=== PATIENT | female | born 1955 | race Caucasian/White ===

== ENCOUNTER 2020-04-28 06:20 | Outpatient (REF) | payer BC, SELFPAY ==
[2020-04-28 11:38] LABS: Basophils Percent Auto 0.6 % (0-2); MANUAL DIFF FLAG SCAN; Red Cell Distribution Width 13.6 % (11.0-16.0); SCAN SMEAR FLAG 1; White Blood Count 5.1 X10*3/uL (4.8-10.8)
[2020-04-28 11:40] LABS: Eosinophils Absolute Auto 0.3 X10*3/uL (0.0-0.4); Eosinophils Percent Auto 4.9 % (0-4); Hematocrit 44.9 % (37-47); Hemoglobin 14.2 g/dl (12.0-16.0); Imm Gran Abs Auto 0.02 X10*3/uL (0.00-0.03); Imm Gran Pct Auto 0.4 % (0.0-0.4); Lymphocytes Absolute Auto 1.6 X10*3/uL (1.2-4.9); Lymphocytes Percent Auto 31.6 % (20-40); Mean Corpuscular HGB Conc 31.6 g/dl (31.0-35.0); Mean Corpuscular Volume 94.9 fL (80-98); Mean Platelet Volume 14.5 fL (9.4-12.3); Monocytes Absolute Auto 0.5 X10*3/uL (0.1-1.2); Monocytes Percent Auto 10.5 % (2-11); Neutrophils Absolute Auto 2.7 X10*3/uL (2.0-8.3); Platelet Count 117 X10*3/uL (160-400); Red Blood Count 4.73 X10*6/uL (4.20-5.50)
[2020-04-28 11:48] LABS: PLT ABN DIST 1
[2020-04-28 11:58] LABS: Anion Gap 15 (12-20); Blood Urea Nitrogen 14 mg/dL (9-16); Calcium 9.2 mg/dL (8.4-10.2); Carbon Dioxide 25 mmol/L (22-29); Chloride 102 mmol/L (96-108); Cholesterol 191 mg/dL; Estimated Glomerular Filt Rate > 60; Glucose Fasting 127 mg/dL (60-99); HDL Cholesterol 47 mg/dL; LDL Cholesterol Calculated 103 mg/dl; Potassium 3.9 mmol/l (3.3-5.1); Sodium 138 mmol/L (135-145); Triglycerides 209 mg/dL
[2020-04-28 12:23] LABS: TSH reflex Free T4 3.96 mIU/mL (0.32-4.0)
== END 2020-04-28 06:21 | disposition home or self-care (01) ==
LOC: HO.HMGCLDS 06:20
PROVIDERS: PCP Internal Medicine; Visit Provider Internal Medicine
DX: E03.9 Hypothyroidism, unspecified (principal); I10 Essential (primary) hypertension; Z00.01 Encounter for general adult medical examination with abnormal findings
CPT/HCPCS: 36415; 80048; 80061; 84443; 85025

== ENCOUNTER 2020-05-22 07:31 | Day surgery (SDC) | payer BC, SELFPAY ==
[2020-05-15 13:18] VITALS: BMI 39.2
[2020-05-22 07:45] VITALS: BP 137/66; PULSE 88; RESP 18; TEMP 36.7; O2SAT 95
--- NOTE | 2020-05-22 08:20 | HO.ANESPROP2 ---
[facility] Past Medical History Medical History (Updated 05/15/20 @ 13:25 by Ruthann Boland) Arthritis Cancer Hx of radiation therapy Hypertension, essential Hypothyroidism Lab test negative for COVID-19 virus Sleep apnea TIA (transient ischemic attack) Family History Family History Father No problems noted. Mother HTN (hypertension) Surgical History Surgical History (Updated 05/15/20 @ 13:21 by Ruthann Boland) H/O colonoscopy History of extraction of renal calculus Hx of breast lump removal Hx of section No pertinent past surgical history Social History Social History Smoking Status: Never smoker Use of substances other than those prescribed or required for medical reasons: No Advance Directives Information Provided: No Recently lost weight without trying: No Meds Allergies Allergy/AdvReac Type Severity Reaction Status Date / Time No Known Allergies Allergy Verified 05/15/20 13:23 Home Medications Medication Instructions Recorded Confirmed Type amlodipine 10 mg tablet 10 mg PO DAILY 04/26/20 05/22/20 History aspirin 81 mg tablet,delayed 81 mg PO DAILY 04/26/20 05/15/20 History release levothyroxine 50 mcg tablet 50 mcg PO QAM 04/26/20 05/22/20 History olmesartan 40 mg tablet 40 mg PO DAILY 04/26/20 05/15/20 History cholecalciferol (vitamin D3) 25 mcg PO DAILY 05/15/20 05/15/20 History [Vitamin D3] Exam Exam Date and Time: May 22, 2020 0820 Height,Weight and Vital Signs: Height 5 ft Weight 91.172 kg Last Vital Signs Temp 98.0 F 05/22/20 07:45 Pulse 88 05/22/20 07:45 Resp 18 05/22/20 07:45 BP 137/66 05/22/20 07:45 Pulse Ox 95 05/22/20 07:45 Airway Mallampati Class: III TM Dist: >3cm Neck ROM: Full Loose/Missing/Broken Teeth: No Heart: rrr Lungs: nl Other: ao Assessment and Plan Assessment Anesthesia Assessment: Anesthesia Plan Discussed, PAT Visit and Chart Reviewed Final Anesthetic Review NPO: Yes ASA Class: III Final Preanesthetic Review: No Changes in Pt Med Stat, Meds/Allgs Chart Reviewed, Consent Obtained/Reviewed and Anes Risks/Benef Reviewed Patient Risk: Intermediate Procedure Risk: Low Anesthetic Plan Anesthetic Plan: MAC: Disposition: Standard PACU
--- NOTE | 2020-05-22 08:34 | P.HPSUR_ITS ---
Pre-Procedural Eval Section B Chief Complaint: SCREENING Relevant Family History (Specify if Yes): No Relevant Social History: None Present Medications: see Short Stay Collaborative assessment Medical History: Significant History (HTN,hypothyroidism) History of Previous Operations: No relevant previous surgery Allergies: Allergies Allergy/AdvReac Type Severity Reaction Status Date / Time No Known Allergies Allergy Verified 05/15/20 13:23 Review of Systems Sugical H&P ROS: Negative: Constitution, Cardiovascular, Respiratory, Neurological, Psychiatric, Hem-Onc, Allergic/Immunologic, Gastrointestinal, Genitourinary, Musculoskeletal, Integumentary, Endocrine and Eyes/Ears/Nose/Thr oat Exam Surgical H&P Exam: Normal: HEENT, Normal: Heart, Normal: Lungs, Normal: Extremities, Normal: Abdomen, Normal: Skin and Normal: Neurological Plan Diagnosis/Plan: Unchanged Patient has been examined and remains a candidate for the planned procedure
--- NOTE | 2020-05-22 09:00 | P.OP_ITS ---
Operative Note Operative Note Date of Service: 05/22/20 Narrative: Operative Information Procedure Description: Colonoscopy COLONOSCOPY Instrument: Olympus variable stiffness pediatric scope 190L Colonoscopy Monitoring: Vital signs and clinical assessment, continuous EKG monitoring, Pulse oximetry, Carbon Dioxide monitoring and blood pressure monitoring were done throughout the procedure. Colon withdrawal time was 8 minutes. Procedure: The patient was placed in the left lateral decubitis position and pre-procedure medications were administered. After a digital rectal examination of the ano-rectum, the video colonoscope was inserted into the rectum and advanced through the colon to the cecum/TI. The colonoscope was slowly withdrawn in a retrograde panoramic fashion and the colon mucosa was carefully examined including a retroflexed view of the rectum. Findings and interventions are described below. Procedure Difficulty: Findings: Terminal Ileum-normal Cecum:normal Ascending Colon: 6-7 mm sessile polyp removed with biopsy forceps Transverse Colon - x 2 sessile polyps 8-10 mm removed with cold snare Descending Colon:normal Sigmoid Colon: normal Rectum: Retroflexion with small internal hemorrhoids, grade I Anorectum - normal Colon preparation: [place] Bowel Preparation Scale Right colon; 3 Transverse colon: 3 Left colon; 3 (0 = Unprepared colon segment with mucosa not seen due to solid stool that cannot be cleared. 1 = Portion of mucosa of the colon segment seen, but other areas of the colon segment not well seen due to staining, residual stool and/or opaque liquid. 2 = Minor amount of residual staining, small fragments of stool and/or opaque liquid, but mucosa of colon segment seen well. 3 = Entire mucosa of colon segment seen well with no residual staining, small fragments of stool or opaque liquid) Impression and Post Procedure Diagnosis: internal hemorrhoids polyps Plan: High fiber diet leaflet Avoid straining at stool, epsom salts and sitz bath, anusol supps or cream Repeat Colonoscopy in 5 years if adenomatous polyps, 10 yrs if hyperplastic or earlier if clinically indicated Above findings were reviewed with the patient and relevant handouts were provided if indicated.
--- NOTE | 2020-05-22 09:00 | PM.OP ---
Brief Operative Note Date of Service: 05/22/20 Pre-op diagnosis: colon screen Post-op diagnosis: same Procedure: see op note Surgeon: Susanne Salmeron MD Anesthesia: MAC Estimated blood loss (mL): 0 Condition: stable Disposition: PACU
[2020-05-22 09:07] VITALS: BP 100/51; PULSE 66; RESP 16; TEMP 36.4; O2SAT 92
[2020-05-22 09:21] VITALS: BP 123/65; PULSE 68; RESP 15; TEMP 36.4; O2SAT 94
== END 2020-05-22 10:08 | disposition home or self-care (01) ==
PROVIDERS: PCP Internal Medicine; Visit Provider Internal Medicine Gastroenterology
PROC: 0DJD8ZZ Inspection of Lower Intestinal Tract, Via Natural or Artificial Opening Endoscopic (ICD-10-PCS; CPT 45378; principal; 2020-05-22 08:30)
DX: Z12.11 Encounter for screening for malignant neoplasm of colon (principal); D12.2 Benign neoplasm of ascending colon; D12.3 Benign neoplasm of transverse colon; K64.0 First degree hemorrhoids; G47.33 Obstructive sleep apnea (adult) (pediatric); I10 Essential (primary) hypertension; E03.9 Hypothyroidism, unspecified; Z85.3 Personal history of malignant neoplasm of breast; Z92.3 Personal history of irradiation; Z86.73 Personal history of transient ischemic attack (TIA), and cerebral infarction without residual deficits; Z79.82 Long term (current) use of aspirin; Z79.899 Other long term (current) drug therapy
CPT/HCPCS: 45385; 45380; 88305

== ENCOUNTER → 2020-06-05 09:25 | Outpatient (BNVA) | payer BC, SELFPAY | PROVIDERS: Visit Provider Physician Assistant | DX: Z76.89 Persons encountering health services in other specified circumstances (principal) ==

== ENCOUNTER 2020-08-25 11:15 | Outpatient (REF) | payer BC, SELFPAY ==
[2020-08-25 13:50] LABS: Hematocrit 45.6 % (37-47); Hemoglobin 14.6 g/dl (12.0-16.0)
[2020-08-25 14:21] LABS: Alanine Aminotransferase 31 U/L (0-31); Albumin Level 4.5 g/dL (3.5-5.0); Alkaline Phosphatase 84 U/L (39-117); Anion Gap 17 (12-20); Aspartate Amino Transferase 38 U/L (5-31); Bilirubin Direct 0.4 mg/dL (0.0-0.5); Bilirubin Total 1.2 mg/dL (0.0-1.0); Blood Urea Nitrogen 15 mg/dL (9-16); Calcium 9.6 mg/dL (8.4-10.2); Carbon Dioxide 26 mmol/L (22-29); Chloride 103 mmol/L (96-108); Estimated Glomerular Filt Rate > 60; Glucose Random 114 mg/dL (60-115); Potassium 4.6 mmol/L (3.3-5.1); Sodium 141 mmol/L (135-145); Total Protein 8.2 g/dL (6.5-8.0)
[2020-08-25 14:43] LABS: TSH reflex Free T4 2.67 uIU/mL (0.32-4.0)
== END 2020-08-25 11:16 | disposition home or self-care (01) ==
LOC: HO.HMGCLDS 11:15
PROVIDERS: PCP Internal Medicine; Visit Provider Internal Medicine
DX: E03.8 Other specified hypothyroidism (principal); I10 Essential (primary) hypertension; E66.9 Obesity, unspecified
CPT/HCPCS: 36415; 80048; 80076; 84443; 85014; 85018

== ENCOUNTER 2021-01-16 09:59 | Outpatient (REF) | payer BC, SELFPAY ==
[2021-01-16 12:09] LABS: TSH reflex Free T4 2.06 uIU/mL (0.32-4.0)
[2021-01-16 12:14] LABS: Alanine Aminotransferase 28 U/L (0-31); Albumin Level 4.3 g/dL (3.5-5.0); Alkaline Phosphatase 94 U/L (39-117); Anion Gap 18 (12-20); Aspartate Amino Transferase 34 U/L (5-31); Blood Urea Nitrogen 16 mg/dL (9-16); Calcium 9.7 mg/dL (8.4-10.2); Carbon Dioxide 23 mmol/L (22-29); Chloride 107 mmol/L (96-108); Estimated Glomerular Filt Rate > 60; Glucose Random 142 mg/dL (60-115); Potassium 4.6 mmol/L (3.3-5.1); Sodium 143 mmol/L (135-145); Total Protein 7.9 g/dL (6.5-8.0)
== END 2021-01-16 10:00 | disposition home or self-care (01) ==
LOC: HO.HMGCLDS 09:59
PROVIDERS: PCP Internal Medicine; Visit Provider Internal Medicine
DX: E03.8 Other specified hypothyroidism (principal); E66.9 Obesity, unspecified; I10 Essential (primary) hypertension
CPT/HCPCS: 36415; 80053; 84443

== ENCOUNTER 2021-02-26 11:23 | Emergency (ER) | payer BC, SELFPAY ==
--- NOTE | ~2021-02-26 | CT_ITS ---
EXAMINATION: CT ABDOMEN AND PELVIS WITHOUT CONTRAST CLINICAL INFORMATION: Right flank pain with history of kidney stones COMPARISON: 07/02/2008, CT abdomen pelvis TECHNIQUE: Multidetector volumetric imaging was performed from the superior aspect of the liver through the pubic symphysis. Sagittal and coronal reformatted images were obtained on the technologist's workstation. This CT examination was performed using dose optimization techniques as appropriate, variously including the following: *Automated exposure control *Adjustment of mA and/or kV according to patient size (this includes techniques or standardized protocols for targeted exams where dose is matched to indication/reason for exam; i.e. extremities or head) *Use of iterative reconstruction technique DLP: 831 mGy-cm FINDINGS: LUNG BASES: The visualized lung bases are unremarkable. LIVER, GALLBLADDER, AND BILIARY TREE: Again seen is hepatic steatosis. There is mild hepatic enlargement. No focal mass or bile duct dilatation is seen. The gallbladder contains densely layering bile but no radiopaque gallstones are seen. The gallbladder is otherwise unremarkable with no evidence of gallbladder wall thickening, or obvious pericholecystic inflammatory changes. PANCREAS: Unremarkable. SPLEEN: Unremarkable. ADRENAL GLANDS: Unremarkable. KIDNEYS AND URETERS: The kidneys are normal in size, shape, and attenuation of a right lower pole renal calculus is seen measuring about 7 mm in size. Hounsfield unit attenuation is 831 and a stone is 12.8 cm from the posterior axillary line. At the time of the prior study, much more extensive stone disease was present.. No hydronephrosis, hydroureter, or calculi seen. No perinephric stranding. BLADDER: Unremarkable. GASTROINTESTINAL TRACT: A hiatal hernia is present. The small and large bowel are unremarkable. The appendix is unremarkable. ABDOMINAL WALL: There is diastases of the rectus muscles in the pelvis with an anterior lobular hernia containing only fat. Similar finding was present in 2008. LYMPH NODES: No retroperitoneal lymphadenopathy. VASCULAR: Unremarkable. PELVIC VISCERA: An anteverted retroflexed uterus is present. An abnormal adnexal mass or free intraperitoneal fluid is not seen. OSSEOUS STRUCTURES: Degenerative changes present throughout the spine most marked at L4-L5 and L5-S1. No bony destructive lesions. CT/CT abdomen pelvis wo con IMPRESSION: 1. A cause for the patient's acute right flank pain has not been found. A right lower pole nonobstructing calculus is seen. 2. Incidental note made of hepatic steatosis, layering dense bilateral, small hiatal hernia, ventral hernia containing only fat and degenerative changes in the spine.
[2021-02-26 13:39] VITALS: BP 156/74; PULSE 71; RESP 16; TEMP 36.6; O2SAT 97; BMI 39.0
[2021-02-26 14:05] LABS: Basophils Percent Auto 0.4 % (0-2); Hematocrit 45.7 % (37-47); Hemoglobin 14.8 g/dl (12.0-16.0); Imm Gran Abs Auto 0.04 X10*3/uL (0.00-0.03); Imm Gran Pct Auto 0.4 % (0.0-0.4); MANUAL DIFF FLAG SCAN; Mean Corpuscular HGB Conc 32.4 g/dl (31.0-35.0); Mean Corpuscular Hemoglobin 29.8 pg (27.0-33.0); Mean Corpuscular Volume 92.1 fL (80-98); Red Blood Count 4.96 X10*6/uL (4.20-5.50); Red Cell Distribution Width 14.3 % (11.0-16.0); SCAN SMEAR FLAG 1
[2021-02-26 14:07] LABS: Eosinophils Absolute Auto 0.1 X10*3/uL (0.0-0.4); Eosinophils Percent Auto 0.7 % (0-4); Lymphocytes Absolute Auto 1.5 X10*3/uL (1.2-4.9); Lymphocytes Percent Auto 16.5 % (20-40); Mean Platelet Volume 13.5 fL (9.4-12.3); Monocytes Absolute Auto 0.6 X10*3/uL (0.1-1.2); Neutrophils Absolute Auto 7.1 X10*3/uL (2.0-8.3); Platelet Count 137 X10*3/uL (160-400); White Blood Count 9.3 X10*3/uL (4.8-10.8)
[2021-02-26 14:08] LABS: PLT ABN DIST 1
[2021-02-26 14:29] LABS: Anion Gap 14 (12-20); Blood Urea Nitrogen 15 mg/dL (9-16); Calcium 9.5 mg/dL (8.4-10.2); Carbon Dioxide 23 mmol/L (22-29); Chloride 109 mmol/L (96-108); Creatinine Clr Calc Pharmacy 70.4; Estimated Glomerular Filt Rate > 60; Glucose Random 123 mg/dL (60-115); Potassium 4.2 mmol/L (3.3-5.1); Sodium 142 mmol/L (135-145)
[2021-02-26 14:37] LABS: SLIDE REVIEW VERIFIED
--- NOTE | 2021-02-26 18:34 | ED.FEMALEGU ---
HPI - Female Genitourinary General Chief complaint: Urogenital-Female Stated complaint: kidney stones ? Time Seen by Provider: 02/26/21 18:34 Source: patient Mode of arrival: ambulatory Limitations: no limitations History of Present Illness HPI Narrative: Patient has a kidney stone been complaining of pain in the right flank area for last 1 week no dysuria no frequency no gross hematuria no fever or chills no nausea/vomiting or diarrhea no history of trauma no abdominal pain pain is localized to right flank for last 1 week no radiation of pain to the front patient had stone 1 time had lithotripsy that time Related Data Home Medications Medication Instructions Recorded Confirmed aspirin 81 mg tablet,delayed 81 mg PO DAILY 04/26/20 01/16/21 release (Adult Aspirin Regimen) cholecalciferol (vitamin D3) 25 25 mcg PO DAILY 05/15/20 01/16/21 mcg (1,000 unit) tablet (Vitamin D3) Previous Rx's Medication Instructions Recorded amlodipine 10 mg tablet 10 mg PO DAILY #90 tab 12/13/20 olmesartan 40 mg tablet 40 mg PO DAILY #30 tab 12/13/20 levothyroxine 50 mcg tablet 50 mcg PO QAM #90 tab 01/26/21 potassium chloride 20 mEq 20 meq PO DAILY #90 tab 01/26/21 tablet,extended release cyclobenzaprine 10 mg tablet 10 mg PO Q8H #20 tab 02/26/21 tramadol 50 mg tablet 50 mg PO Q6H PRN #20 tab 02/26/21 Allergies Allergy/AdvReac Type Severity Reaction Status Date / Time No Known Allergies Allergy Verified 01/16/21 09:34 Review of Systems Review of Systems: Yes all other systems are reviewed and are negative [facility] Past Medical History Medical History Arthritis Cancer Hx of radiation therapy Hypertension, essential Hypothyroidism Lab test negative for COVID-19 virus Sleep apnea TIA (transient ischemic attack) Surgical History H/O colonoscopy History of extraction of renal calculus Hx of breast lump removal Hx of section No pertinent past surgical history Family History Family History Father No problems noted. Mother HTN (hypertension) Other Substance use disorder Social History Social History Household Members: Spouse Household Members Other:: Custody of 3 grandchildren, she and her are [id number], 15 and 17 Housing: House Alcohol intake: never Patient Tobacco Use Status: Never used Tobacco Second Hand Smoke Exposure: No Advance Directives: No Advance Directives Information Provided: No Current occupational status: unemployed Physical Exam Vital Signs: Vital Signs: Last Vital Signs Temp 97.9 F 02/26/21 13:39 Pulse 78 02/26/21 20:28 Resp 18 02/26/21 20:28 BP 156/74 H 02/26/21 13:39 Pulse Ox 97 02/26/21 13:39 Body Mass Index 39.0 Appearance: Alert. Oriented X3. Mild distress Eyes: No pallor or icterus ENT: Pharynx normal. Oral Mucosa moist Neck: Normal inspection. Neck supple. CVS: Normal heart rate and rhythm. Pulses normal. Respiratory: No respiratory distress. Equal air entry bilateral, no wheezing/rales/rhonchi Abdomen: Soft and nontender. Bowel sounds are present, no mass palpable, moderate right CVA tenderness Skin: Skin warm and dry. Normal skin color. Normal skin turgor. Extremities: No lower extremity edema. No calf tenderness Neuro: Oriented X 3. MDM - Female Genitourinary MDM Narrative Medical decision making narrative: Patient with right renal colic without any stone urine shows UTI received IV Rocephin, no signs of pyelonephritis/ perinephric stranding in CT scan. Will discharge patient home on Cipro Differential Diagnosis Differential diagnosis: Likely urinary tract infection Medical Records Attestation: I reviewed the patient's medical records. Lab Data Attestation: I reviewed the patient's lab results. Result diagrams: 02/26/21 13:58 02/26/21 13:58 Labs: Lab Results 02/26/21 02/26/21 02/26/21 Range/Units 13:58 13:58 19:25 WBC 9.3 (4.8-10.8) X10*3/uL RBC 4.96 (4.20-5.50) X10*6/uL Hgb 14.8 (12.0-16.0) g/dl Hct 45.7 (37-47) % MCV 92.1 (80-98) fL MCH 29.8 (27.0-33.0) pg MCHC 32.4 (31.0-35.0) g/dl RDW 14.3 (11.0-16.0) % Plt Count 137 L (160-400) X10*3/uL MPV 13.5 H (9.4-12.3) fL Immature Gran % (Auto) 0.4 (0.0-0.4) % Neut % (Auto) 76.0 H (45-73) % Lymph % (Auto) 16.5 L (20-40) % [place] % (Auto) 6.0 (2-11) % Eos % (Auto) 0.7 (0-4) % Baso % (Auto) 0.4 (0-2) % Lymph # (Auto) 1.5 (1.2-4.9) X10*3/uL [place] # (Auto) 0.6 (0.1-1.2) X10*3/uL Eos # (Auto) 0.1 (0.0-0.4) X10*3/uL Baso # (Auto) 0.0 (0.0-0.2) X10*3/uL Abs Immat Gran (auto) 0.04 H (0.00-0.03) X10*3/uL Absolute Neuts (auto) 7.1 (2.0-8.3) X10*3/uL Absolute Nucleated RBC 0.000 (0.0-0.012) X10*3/uL Nucleated RBC % (auto) 0.0 (0.0-0.2) /100WBC Smear Tech's Comments VERIFIED Sodium 142 (135-145) mmol/L Potassium 4.2 (3.3-5.1) mmol/L Chloride 109 H (96-108) mmol/L Carbon Dioxide 23 (22-29) mmol/L Anion Gap 14 (12-20) BUN 15 (9-16) mg/dL Creatinine 0.81 (0.5-1.4) mg/dL Estim Creat Clear Calc 70.4 Estimated GFR > 60 Random Glucose 123 H (60-115) mg/dL Calcium 9.5 (8.4-10.2) mg/dL Urine Color YELLOW Urine Appearance CLEAR Urine pH 6.0 (5.0-8.0) Ur Specific [place] 1.025 (1.005-1.025) Urine Protein NEG (NEG-TRACE) MG/DL Urine Glucose (UA) NEG (NEG) MG/DL Urine Ketones NEG (NEG) MG/DL Urine Blood NEG (NEG) Urine Nitrite NEG (NEG) Ur Leukocyte Esterase NEG (NEG) Discharge Plan Discharge Clinical Impression: Flank pain Patient Disposition: Home, Self-Care Instructions: Flank Pain (ED) Additional Instructions: Etiology of flank pain is not very clear no kidney stones were seen in the CT scan. His possible ED might have passed the kidney stone or your pain is from musculoskeletal Pain medication and muscle relaxant as advised Drink plenty of fluids Follow with PCP if not better Prescriptions: New cyclobenzaprine 10 mg tablet 10 mg PO Q8H Qty: 20 RF: 0 tramadol 50 mg tablet 50 mg PO Q6H PRN (Reason: pain) Qty: 20 RF: 0 No Action olmesartan 40 mg tablet 40 mg PO DAILY Qty: 30 RF: 3 amlodipine 10 mg tablet 10 mg PO DAILY Qty: 90 RF: 0 levothyroxine 50 mcg tablet 50 mcg PO QAM Qty: 90 RF: 0 potassium chloride 20 mEq tablet extended release 20 meq PO DAILY Qty: 90 RF: 0 cholecalciferol (vitamin D3) [Vitamin D3] 25 mcg (1,000 unit) Tablet 25 mcg PO DAILY RF: 0 aspirin [Adult Aspirin Regimen] 81 mg tablet,delayed release (DR/EC) 81 mg PO DAILY RF: 0 Interventions: ED Discharge Assessment Last Done: 02/26/21 21:16 Discharge Date/Time: 02/26/21 21:18
[2021-02-26] MEDS: Morphine Sulfate 4 MG/ML CARTRIDGE IVPUSH (19:18)
[2021-02-26] MEDS: 0.9 % Sodium Chloride 1,000 ML 999 ML IVCONT (19:19)
[2021-02-26] MEDS: ondansetron HCL 4 MG/2 ML VIAL IVPUSH (19:19)
--- NOTE | 2021-02-26 19:32 | PC.NURSE ---
pt resting in stretcher c/o right sided abd pain. pt denies nausea/vomiting at this time but rating pain 8/10. pt returning from CT in stretcher. IV placed to RAC, labs drawn to lab. pt medicated as per emar for pain. NS up and running w/o site intact.
[2021-02-26 19:34] LABS: Glucose Urine UA NEG (NEG); Leukocyte Esterase Urine NEG (NEG); Nitrite Urine NEG (NEG); Specific Gravity - Urine 1.025 (1.005-1.025); Urine Blood NEG (NEG); Urine Ketones NEG (NEG); Urine Protein NEG (NEG-TRACE)
--- NOTE | 2021-02-26 19:34 | PC.NURSE ---
pt up to restroom for urine sample.
[2021-02-26 19:36] LABS: Appearance Urine CLEAR; Color Urine YELLOW
[2021-02-26 20:28] VITALS: PULSE 78; RESP 18
[2021-02-26] MEDS: Cyclobenzaprine HCl 10 MG TABLET PO (20:42)
[2021-02-26] MEDS: Ketorolac Tromethamine 15 MG/ML VIAL IVPUSH (20:42)
== END 2021-02-26 21:18 | disposition home or self-care (01) ==
PROVIDERS: Emergency Provider Internal Medicine; PCP Internal Medicine
DX: R30.0 Dysuria (principal); I10 Essential (primary) hypertension; Z79.899 Other long term (current) drug therapy; Z79.82 Long term (current) use of aspirin
CPT/HCPCS: 36415; 74176; 80048; 81003; 85025; 96361; 96374; 96375; 99284; J1885; J2270; J2405

== ENCOUNTER → 2021-04-17 08:54 | Outpatient (BNVA) | payer BC, SELFPAY | PROVIDERS: PCP Internal Medicine; Referring Provider Internal Medicine; Visit Provider Psychiatry & Neurology Neurology ==

== ENCOUNTER 2021-05-03 13:07 | Outpatient (REF) | payer BC, SELFPAY ==
[2021-05-03 14:51] LABS: Vitamin B12 351 pg/mL (200-900)
== END 2021-05-03 13:08 | disposition home or self-care (01) ==
LOC: HO.LAB 13:07
PROVIDERS: PCP Internal Medicine; Visit Provider Psychiatry & Neurology Neurology
DX: G31.84 Mild cognitive impairment of uncertain or unknown etiology (principal)
CPT/HCPCS: 36415; 82607

== ENCOUNTER 2021-08-09 12:40 | Outpatient (REF) | payer BC, MEDICARE, SELFPAY ==
[2021-08-09 14:29] LABS: Alanine Aminotransferase 25 U/L (0-31); Albumin Level 4.5 g/dL (3.5-5.0); Alkaline Phosphatase 89 U/L (39-117); Anion Gap 15 (12-20); Aspartate Amino Transferase 30 U/L (5-31); Bilirubin Total 1.1 mg/dL (0.0-1.0); Blood Urea Nitrogen 20 mg/dL (9-16); Calcium 10.3 mg/dL (8.4-10.2); Carbon Dioxide 25 mmol/L (22-29); Chloride 103 mmol/L (96-108); Estimated Glomerular Filt Rate > 60; Glucose Random 105 mg/dL (60-115); Potassium 4.7 mmol/L (3.3-5.1); Sodium 138 mmol/L (135-145)
[2021-08-09 14:52] LABS: TSH reflex Free T4 1.76 uIU/mL (0.32-4.0)
[2021-08-09 16:16] LABS: Eosinophils Percent Auto 1.6 % (0-4); Hemoglobin 14.5 g/dl (12.0-16.0); Monocytes Percent Auto 8.1 % (2-11); SCAN SMEAR FLAG 1
[2021-08-09 16:18] LABS: Basophils Absolute Auto 0.1 X10*3/uL (0.0-0.2); Basophils Percent Auto 0.6 % (0-2); Eosinophils Absolute Auto 0.1 X10*3/uL (0.0-0.4); Hematocrit 45.4 % (37.0-47.0); Imm Gran Abs Auto 0.02 X10*3/uL (0.00-0.03); Imm Gran Pct Auto 0.2 % (0.0-0.4); Lymphocytes Absolute Auto 2.3 X10*3/uL (1.2-4.9); Lymphocytes Percent Auto 27.2 % (20-40); MANUAL DIFF FLAG SCAN; Mean Corpuscular HGB Conc 31.9 g/dl (31.0-35.0); Mean Corpuscular Hemoglobin 29.2 pg (27.0-33.0); Mean Corpuscular Volume 91.3 fL (80.0-98.0); Mean Platelet Volume 13.7 fL (9.4-12.3); Monocytes Absolute Auto 0.7 X10*3/uL (0.1-1.2); Neutrophils Absolute Auto 5.2 x10*3/uL (2.0-8.3); Neutrophils Percent Auto 62.3 % (45-73); Platelet Count 155 X10*3/uL (160-400); Red Blood Count 4.97 X10*6/uL (4.20-5.50); Red Cell Distribution Width 13.6 % (11.0-16.0); White Blood Count 8.3 X10*3/uL (4.8-10.8)
[2021-08-09 16:24] LABS: PLT ABN DIST 1
[2021-08-09 16:37] LABS: SLIDE REVIEW VERIFIED
== END 2021-08-09 12:41 | disposition home or self-care (01) ==
LOC: HO.HMGCLDS 12:40
PROVIDERS: PCP Internal Medicine; Visit Provider Internal Medicine
DX: I10 Essential (primary) hypertension (principal); E03.9 Hypothyroidism, unspecified; E03.8 Other specified hypothyroidism
CPT/HCPCS: 36415; 80053; 84443; 85025

== ENCOUNTER 2021-10-28 10:45 | Emergency (ER) | payer MEDICARE, BC, SELFPAY ==
--- NOTE | ~2021-10-28 | XR_ITS ---
EXAMINATION: XR CHEST CLINICAL INFORMATION: Cough COMPARISON: Previous chest x-ray most recent December 2014 TECHNIQUE: Frontal view of the chest was obtained. FINDINGS: The cardiac and mediastinal contours are stable. The lungs are clear. There is no pleural effusion or pneumothorax. There are degenerative changes of the spine. There are degenerative changes at the shoulder joints. XR/XR chest 1V IMPRESSION: No evidence for acute disease in the chest.
--- NOTE | ~2021-10-28 | CT_ITS ---
EXAMINATION: CT HEAD WITHOUT CONTRAST AND CT ABDOMEN PELVIS WITH CONTRAST. CLINICAL INFORMATION: Abdominal pain. Headache. COMPARISON: CT abdomen pelvis 10/28/2021. CT brain 07/21/2009. TECHNIQUE: 5 mm thin axial and reformatted 2 mm thin coronal and sagittal images of brain were obtained. Subsequently axial 5 minutes thin and reformatted 3 mm thin sagittal coronal images of abdomen pelvis were obtained. DLP [id number]. FINDINGS: Brain: There is no acute intra-axial, extra-axial bleed, masses or midline shift. There is no acute infarction evolution. No edema. The ny to white matter difference is maintained. The lateral ventricles are symmetrical in size and configuration but enlarged. Bone windows reveal no calvarial abnormality. There is no scalp soft tissue abnormality. The paranasal sinuses and mastoid air cells are well-aerated. Abdomen and pelvis: The lung bases are clear the heart size is normal. The liver is normal size, shape and position. No focal lesion or intrahepatic ductal dilatation seen. The gallbladder is unremarkable. Visualized pancreas, liver and bilateral adrenal glands are unremarkable. There is an 8 mm nonobstructive radiopaque calculi lower pole right kidney. No additional radiopaque calculi seen in either kidney. There is no hydronephrosis except for bilateral extrarenal kidney pelvises. There is minimal bilateral perinephric stranding The abdominal aorta is normal caliber. No abnormal-sized retroperitoneal or peritoneal lymph nodes seen. There is scattered stool and gas seen in the colon without distention. The terminal ileum is unremarkable. The appendix is not seen. There is a tubular structure right lower quadrant on axial image [id number] with surgical sutures are calcification along the distal tip question anastomotic small bowel segment from previous intervention. There is unchanged to previous study 02/26/2021. No free air or free fluid seen. There is a lower anterior abdominal wall moderate size midline hernia with intraperitoneal fat within. The diastases of lower intra-abdominal wall is noted. Imaging to the pelvis reveals unremarkable urinary bladder. The uterus is anteverted and appears unremarkable. There is no adnexal cyst or free fluid seen. Bone windows reveal degenerative disc changes bilateral hip joints with periarticular spurring. Mild degenerative disc changes are seen in lower lumbar spine without any aggressive lytic or sclerotic process seen except for spondylosis. CT/CT abdomen pelvis w con IMPRESSION: No acute intra-abdominal process seen. Lower anterior abdominal wall diastases with moderate sized hernia. Mild constipation. Nonobstructive radiopaque calculi lower pole right kidney.
[2021-10-28 10:49] VITALS: BP 140/74; PULSE 76; RESP 19; TEMP 36.6; O2SAT 98; BMI 38.2
--- NOTE | 2021-10-28 11:29 | ECG_ITS ---
Test Reason : cp Blood Pressure : / mmHG Vent. Rate : 067 BPM Atrial Rate : 067 BPM P-R Int : 148 ms QRS Dur : 088 ms QT Int : 434 ms P-R-T Axes : 047 -17 033 degrees QTc Int : 458 ms Normal sinus rhythm Normal ECG When compared with ECG of 27-SEP-2018 12:43, Sinus rhythm has replaced Ectopic atrial rhythm T wave inversion no longer evident in Lateral leads Referred By: José Antonio Pires Electronically Signed By:ANAYA BAKER
--- NOTE | 2021-10-28 11:32 | ED_ITS ---
HPI - General Adult General Chief complaint: General Medical Stated complaint: Low blood pressure/headache Time Seen by Provider: 10/28/21 11:23 Source: patient Mode of arrival: ambulatory Limitations: no limitations History of Present Illness HPI narrative: 66 years old female presented to the ED with a chief complaint of generalized weakness malaise, headache and abdominal pain as well. Symptoms are ongoing for weeks. Denies any fever chills vomiting diarrhea chest. She has history hypertension BP meds were recently changed the PCP provider Onset (ago): month(s) (1) Location: abdomen Radiation: non-radiation Severity: moderate Quality: burning Pain Consistency: constant Relieving factors: none Exacerbating factors: none Associated symptoms: denies other symptoms Treatments prior to arrival: none Related Data Home Medications Medication Instructions Recorded Confirmed aspirin 81 mg tablet,delayed 81 mg PO DAILY 04/26/20 10/24/21 release (Adult Aspirin Regimen) cholecalciferol (vitamin D3) 25 25 mcg PO DAILY 05/15/20 10/24/21 mcg (1,000 unit) tablet (Vitamin D3) Previous Rx's Medication Instructions Recorded tramadol 50 mg tablet 50 mg PO Q6H PRN #20 tab 02/26/21 amlodipine 10 mg tablet 10 mg PO DAILY #90 tab 09/25/21 levothyroxine 50 mcg tablet 50 mcg PO QAM #90 tab 09/25/21 spironolactone 50 mg tablet 50 mg PO QAM 30 Days #30 tab 10/24/21 olmesartan 40 mg tablet 40 mg PO DAILY #30 tab 10/26/21 Allergies Allergy/AdvReac Type Severity Reaction Status Date / Time No Known Allergies Allergy Verified 10/24/21 14:48 Review of Systems Review of Systems: Yes all other systems are reviewed and are negative Constitutional: Constitutional: Reports no additional constitutional complaints Cardiovascular: Cardiovascular: Reports no additional cardiovascular complaints Respiratory: Respiratory: Reports no additional respiratory complaints Gastrointestinal: Gastrointestinal: Denies belching, Denies melena, Denies vomiting and Denies hematemesis Musculoskeletal: Musculoskeletal: Reports no additional musculoskeletal complaints PMFSH Past Medical History Medical History Arthritis Cancer Hx of radiation therapy Hypertension, essential Hypothyroidism Lab test negative for COVID-19 virus Sleep apnea TIA (transient ischemic attack) Surgical History H/O colonoscopy History of extraction of renal calculus Hx of breast lump removal Hx of section No pertinent past surgical history Family History Family History Father No problems noted. Mother HTN (hypertension) Other Substance use disorder Social History Social History Household Members: Spouse Household Members Other:: Custody of 3 grandchildren, she and her are [id number], 15 and 17 Housing: House Alcohol intake: never Patient Tobacco Use Status: Never used Tobacco Second Hand Smoke Exposure: No Use of substances other than those prescribed or required for medical reasons: No Advance Directives: No Advance Directives Information Provided: No Current occupational status: retired Cognitive needs: No Hearing needs: No Vision needs: No Physical Exam ED Vital Signs: Vital Signs - 24 hr 10/28/21 10:49 10/28/21 12:53 10/28/21 15:07 Temperature 98 F Pulse Rate 76 76 73 Respiratory Rate 19 18 16 Blood Pressure 140/74 H 132/63 146/70 H Pulse Oximetry 98 97 94 BMI result Body Mass Index 38.2 Const General: cooperative and comfortable Nutritional Appearance: well nourished Orientation/consciousness: patient oriented x3 HENLA Head: Yes normal to inspection Ears: hearing grossly normal bilaterally General nose exam: Normal external nose present Face and sinus: Yes normal facial exam Mouth: Normal oral and palatal mucosa present Throat: Yes posterior oropharynx normal Neck Neck: Yes normal visual inspection Chest Chest palpation & inspection: normal inspection of the chest Resp Effort & Inspection: normal respiratory effort Auscultation: clear to auscultation bilaterally Cardio Jugular venous distension: no JVD Rate: regular rate Rhythm: regular rhythm GI Inspection: Yes normal to inspection Palpation (GI): Soft to palpation and not firm Auscultation: normal bowel sounds General: Yes no CVA tenderness Back/Spine/Pelvis Back: no CVA tenderness Neuro General: patient oriented x3 Course Reevaluation(s) Reevaluation #1: Workup is negative at this point the patient can be discharged home follow up with the primary care physician, she has a normal CBC normal chemistry CT scan of the abdomen and pelvis are normal Medical Decision Making Lab Data Result diagrams: 10/28/21 11:53 04/24/22 11:53 Labs: Lab Results 10/28/21 10/28/21 10/28/21 Range/Units 11:53 11:53 12:55 WBC 8.0 (4.8-10.8) X10*3/uL RBC 4.65 (4.20-5.50) X10*6/uL Hgb 13.4 (12.0-16.0) g/dl Hct 42.1 (37.0-47.0) % MCV 90.5 (80.0-98.0) fL MCH 28.8 (27.0-33.0) pg MCHC 31.8 (31.0-35.0) g/dl RDW 14.0 (11.0-16.0) % Plt Count 172 (160-400) X10*3/uL MPV 12.9 H (9.4-12.3) fL Immature Gran % (Auto) 0.4 (0.0-0.4) % Neut % (Auto) 66.3 (45-73) % Lymph % (Auto) 20.9 (20-40) % [place] % (Auto) 10.3 (2-11) % Eos % (Auto) 1.6 (0-4) % Baso % (Auto) 0.5 (0-2) % Lymph # (Auto) 1.7 (1.2-4.9) X10*3/uL [place] # (Auto) 0.8 (0.1-1.2) X10*3/uL Eos # (Auto) 0.1 (0.0-0.4) X10*3/uL Baso # (Auto) 0.0 (0.0-0.2) X10*3/uL Abs Immat Gran (auto) 0.03 (0.00-0.03) X10*3/uL Absolute Neuts (auto) 5.3 (2.0-8.3) x10*3/uL Absolute Nucleated RBC 0.000 (0.0-0.012) X10*3/uL Nucleated RBC % (auto) 0.0 (0.0-0.2) /100WBC Sodium 139 (135-145) mmol/L Potassium 4.7 (3.3-5.1) mmol/L Chloride 105 (96-108) mmol/L Carbon Dioxide 24 (22-29) mmol/L Anion Gap 15 (12-20) BUN 18 H (9-16) mg/dL Creatinine 0.80 (0.5-1.4) mg/dL Estim Creat Clear Calc 69.5 Estimated GFR > 60 Random Glucose 145 H (60-115) mg/dL Calcium 9.4 D (8.4-10.2) mg/dL Total Bilirubin 0.7 (0.0-1.0) mg/dL AST 22 (5-31) U/L ALT 18 (0-31) U/L Alkaline Phosphatase 86 (39-117) U/L Total Protein 7.7 (6.5-8.0) g/dL Albumin 4.1 (3.5-5.0) g/dL Lipase 21 (8-78) U/L Urine Color STRAW Urine Appearance CLEAR Urine pH 6.0 (5.0-8.0) Ur Specific [place] <= 1.005 (1.005-1.025) Urine Protein NEG (NEG-TRACE) MG/DL Urine Glucose (UA) NEG (NEG) MG/DL Urine Ketones NEG (NEG) MG/DL Urine Blood NEG (NEG) Urine Nitrite NEG (NEG) Ur Leukocyte Esterase NEG (NEG) Urine RBC 0 (0) /HPF Urine WBC 0 (0-4) /HPF Ur Squamous Epith Cells 1+ /LPF Urine Bacteria NONE /LPF Discharge Plan Discharge Clinical Impression: Abdominal pain Patient Disposition: Home, Self-Care Instructions: Abdominal Pain (ED) Additional Instructions: Follow-up with your primary care physician return if you worse Prescriptions: No Action levothyroxine 50 mcg tablet 50 mcg PO QAM Qty: 90 0RF amlodipine 10 mg tablet 10 mg PO DAILY Qty: 90 0RF olmesartan 40 mg tablet 40 mg PO DAILY Qty: 30 3RF cholecalciferol (vitamin D3) [Vitamin D3] 25 mcg (1,000 unit) Tablet 25 mcg PO DAILY 0RF tramadol 50 mg tablet 50 mg PO Q6H PRN (Reason: pain) Qty: 20 0RF aspirin [Adult Aspirin Regimen] 81 mg tablet,delayed release (DR/EC) 81 mg PO DAILY 0RF spironolactone 50 mg tablet 50 mg PO QAM 30 Days Qty: 30 0RF Referrals: Keila Garcia MD [Primary Care Provider] - Interventions: ED Discharge Assessment Last Done: 10/28/21 15:40 Discharge Date/Time: 10/28/21 15:40
[2021-10-28] MEDS: 0.9 % Sodium Chloride 1,000 ML 999 ML IVCONT (12:00)
[2021-10-28 12:05] LABS: MANUAL DIFF FLAG NO
[2021-10-28 12:09] LABS: Basophils Percent Auto 0.5 % (0-2); Eosinophils Absolute Auto 0.1 X10*3/uL (0.0-0.4); Eosinophils Percent Auto 1.6 % (0-4); Hematocrit 42.1 % (37.0-47.0); Hemoglobin 13.4 g/dl (12.0-16.0); Imm Gran Abs Auto 0.03 X10*3/uL (0.00-0.03); Imm Gran Pct Auto 0.4 % (0.0-0.4); Lymphocytes Absolute Auto 1.7 X10*3/uL (1.2-4.9); Lymphocytes Percent Auto 20.9 % (20-40); Mean Corpuscular HGB Conc 31.8 g/dl (31.0-35.0); Mean Corpuscular Hemoglobin 28.8 pg (27.0-33.0); Mean Corpuscular Volume 90.5 fL (80.0-98.0); Mean Platelet Volume 12.9 fL (9.4-12.3); Monocytes Absolute Auto 0.8 X10*3/uL (0.1-1.2); Monocytes Percent Auto 10.3 % (2-11); Neutrophils Absolute Auto 5.3 x10*3/uL (2.0-8.3); Neutrophils Percent Auto 66.3 % (45-73); Platelet Count 172 X10*3/uL (160-400); Red Blood Count 4.65 X10*6/uL (4.20-5.50)
[2021-10-28 12:45] LABS: Alanine Aminotransferase 18 U/L (0-31); Albumin Level 4.1 g/dL (3.5-5.0); Alkaline Phosphatase 86 U/L (39-117); Anion Gap 15 (12-20); Aspartate Amino Transferase 22 U/L (5-31); Bilirubin Total 0.7 mg/dL (0.0-1.0); Blood Urea Nitrogen 18 mg/dL (9-16); Calcium 9.4 mg/dL (8.4-10.2); Carbon Dioxide 24 mmol/L (22-29); Chloride 105 mmol/L (96-108); Creatinine Clr Calc Pharmacy 69.5; Estimated Glomerular Filt Rate > 60; Glucose Random 145 mg/dL (60-115); Lipase 21 U/L (8-78); Potassium 4.7 mmol/L (3.3-5.1); Sodium 139 mmol/L (135-145); Total Protein 7.7 g/dL (6.5-8.0)
[2021-10-28 12:53] VITALS: BP 132/63; PULSE 76; RESP 18; O2SAT 97
[2021-10-28 13:04] LABS: Appearance Urine CLEAR; Color Urine STRAW; Glucose Urine UA NEG (NEG); Leukocyte Esterase Urine NEG (NEG); Nitrite Urine NEG (NEG); Specific Gravity - Urine <= 1.005 (1.005-1.025); Urine Blood NEG (NEG); Urine Ketones NEG (NEG); Urine Protein NEG (NEG-TRACE)
[2021-10-28 13:13] LABS: RBC Urine 0 /HPF (0); Squamous Epithelial Cell Urine 1+ /LPF; WBC Urine 0 /HPF (0-4)
[2021-10-28] MEDS: iohexoL 350 MG/ML 100 ML INFUS..BTL IV (13:16)
[2021-10-28 15:07] VITALS: BP 146/70; PULSE 73; RESP 16; O2SAT 94
== END 2021-10-28 15:40 | disposition home or self-care (01) ==
PROVIDERS: Emergency Provider Emergency Medicine; PCP Internal Medicine
DX: R10.9 Unspecified abdominal pain (principal); R07.89 Other chest pain; R05.9 Cough, unspecified; R51.9 Headache, unspecified; Z79.899 Other long term (current) drug therapy; Z79.82 Long term (current) use of aspirin
CPT/HCPCS: 36415; 70450; 71045; 74177; 80053; 81001; 83690; 85025; 93005; 96360; 99284; Q9967

== ENCOUNTER 2021-11-06 20:18 | Emergency (ER) | payer MEDICARE, BC, SELFPAY ==
--- NOTE | ~2021-11-06 | US_ITS ---
EXAMINATION: US ABDOMEN LIMITED CLINICAL INFORMATION: Right upper quadrant, epigastric pain. COMPARISON: Abdomen CT from 10/28/2021 TECHNIQUE: Real-time imaging of the right upper quadrant abdominal viscera. FINDINGS: PANCREAS: Normal. LIVER: Liver has normal size and contour. The parenchymal echotexture is diffusely hyperechoic, a finding typically secondary to steatosis. No focal liver lesion or intrahepatic bile duct dilatation. GALLBLADDER: Normal. The gallbladder is physiologically distended without evidence of stones, sludge, polyps, wall thickening or pericholecystic fluid. COMMON BILE DUCT: Normal in caliber measuring 0.5 cm in diameter. RIGHT KIDNEY: Normal cortical thickness and echotexture. The kidney measures 11 cm in length. No renal mass or hydronephrosis. 0.7 cm shadowing stone is present in the upper pole. FREE FLUID: None. US/US abdomen limited IMPRESSION: * No acute sonographic abnormalities. No evidence of cholelithiasis or cholecystitis. * There is a nonobstructing stone in the upper pole of the right kidney. * Diffuse hepatic steatosis.
[2021-11-06 20:23] VITALS: BP 143/72; PULSE 101; RESP 18; TEMP 36.5; O2SAT 96; BMI 37.7
[2021-11-06 20:35] LABS: Basophils Absolute Auto 0.1 X10*3/uL (0.0-0.2); Basophils Percent Auto 0.5 % (0-2); Eosinophils Absolute Auto 0.1 X10*3/uL (0.0-0.4); Eosinophils Percent Auto 1.3 % (0-4); Hematocrit 41.8 % (37.0-47.0); Hemoglobin 13.8 g/dl (12.0-16.0); Imm Gran Abs Auto 0.03 X10*3/uL (0.00-0.03); Imm Gran Pct Auto 0.3 % (0.0-0.4); Lymphocytes Absolute Auto 2.5 X10*3/uL (1.2-4.9); Lymphocytes Percent Auto 25.5 % (20-40); MANUAL DIFF FLAG NO; Mean Corpuscular Hemoglobin 29.4 pg (27.0-33.0); Mean Corpuscular Volume 88.9 fL (80.0-98.0); Monocytes Absolute Auto 0.9 X10*3/uL (0.1-1.2); Monocytes Percent Auto 9.3 % (2-11); Neutrophils Absolute Auto 6.1 x10*3/uL (2.0-8.3); Neutrophils Percent Auto 63.1 % (45-73); Platelet Count 188 X10*3/uL (160-400); White Blood Count 9.7 X10*3/uL (4.8-10.8)
[2021-11-06 20:55] LABS: Alanine Aminotransferase 14 U/L (0-31); Albumin Level 4.2 g/dL (3.5-5.0); Alkaline Phosphatase 91 U/L (39-117); Anion Gap 17 (12-20); Aspartate Amino Transferase 21 U/L (5-31); Bilirubin Direct 0.3 mg/dL (0.0-0.5); Bilirubin Total 0.8 mg/dL (0.0-1.0); Blood Urea Nitrogen 32 mg/dL (9-16); Calcium 9.5 mg/dL (8.4-10.2); Carbon Dioxide 19 mmol/L (22-29); Chloride 105 mmol/L (96-108); Creatinine Clr Calc Pharmacy 46.8; Estimated Glomerular Filt Rate 46; Glucose Random 136 mg/dL (60-115); Lipase 27 U/L (8-78); Potassium 4.8 mmol/L (3.3-5.1); Sodium 136 mmol/L (135-145)
[2021-11-07 00:52] LABS: Appearance Urine CLEAR; Color Urine YELLOW; Glucose Urine UA NEG (NEG); Leukocyte Esterase Urine 1+ (NEG); Nitrite Urine NEG (NEG); UACC Culture Trigger YES; Urine Blood NEG (NEG); Urine Ketones NEG (NEG); Urine Protein NEG (NEG-TRACE)
[2021-11-07 01:00] VITALS: BP 138/76; PULSE 93; RESP 16; TEMP 36.7; O2SAT 95
[2021-11-07 01:04] LABS: Bacteria Urine 1+ /LPF; Mucus Urine TRACE /LPF; RBC Urine 0-2 /HPF (0); Squamous Epithelial Cell Urine 2+ /LPF
--- NOTE | 2021-11-07 02:21 | ED_ITS ---
HPI - Abdominal Pain General Chief Complaint: Abdominal Pain Stated Complaint: abd pain radiates to back Time Seen by Provider: 11/06/21 22:54 Source: patient and family () Mode of arrival: ambulatory History of Present Illness HPI narrative: This is a 66-year-old female with history of hypertension and prior TIA who presents for a couple of weeks right upper quadrant/epigastric pain that radiates into her middle of her back with chills and some mild nausea. Patient states that the pain gets worse after she eats but denies any vomiting or diarrhea and now reports that the pain worsened today. She denies any new cough, sore throat, unexplained weight loss. Related Data Home Medications Medication Instructions Recorded Confirmed aspirin 81 mg tablet,delayed 81 mg PO DAILY 04/26/20 10/24/21 release (Adult Aspirin Regimen) cholecalciferol (vitamin D3) 25 25 mcg PO DAILY 05/15/20 10/24/21 mcg (1,000 unit) tablet (Vitamin D3) Previous Rx's Medication Instructions Recorded tramadol 50 mg tablet 50 mg PO Q6H PRN #20 tab 02/26/21 amlodipine 10 mg tablet 10 mg PO DAILY #90 tab 09/25/21 levothyroxine 50 mcg tablet 50 mcg PO QAM #90 tab 09/25/21 spironolactone 50 mg tablet 50 mg PO QAM 30 Days #30 tab 10/24/21 olmesartan 40 mg tablet 40 mg PO DAILY #30 tab 10/26/21 sucralfate 100 mg/mL oral 10 ml PO BID #420 ml 11/07/21 suspension (Carafate) Allergies Allergy/AdvReac Type Severity Reaction Status Date / Time No Known Allergies Allergy Verified 11/06/21 20:23 Review of Systems Review of Systems Pertinent positives and negatives as stated in HPI 10 point review of systems is otherwise negative. PMFSH Past Medical History Source: nursing notes reviewed Medical History Arthritis Cancer Hx of radiation therapy Hypertension, essential Hypothyroidism Lab test negative for COVID-19 virus Sleep apnea TIA (transient ischemic attack) Surgical History H/O colonoscopy History of extraction of renal calculus Hx of breast lump removal Hx of section No pertinent past surgical history Family History Family History Father No problems noted. Mother HTN (hypertension) Other Substance use disorder Social History Social History Household Members: Spouse Household Members Other:: Custody of 3 grandchildren, she and her are [id number], 15 and 17 Housing: House Alcohol intake: never Patient Tobacco Use Status: Never used Tobacco Second Hand Smoke Exposure: No Advance Directives: No Advance Directives Information Provided: Yes Current occupational status: retired Cognitive needs: No Hearing needs: No Vision needs: No Physical Exam ED Vital Signs: Vital Signs - 24 hr 11/06/21 20:23 11/07/21 01:00 11/07/21 04:20 Temperature 97.7 F 98.0 F 98.2 F Pulse Rate 101 H 93 76 Respiratory Rate 18 16 15 Blood Pressure 143/72 H 138/76 124/61 Pulse Oximetry 96 95 96 11/07/21 04:36 11/07/21 05:59 Temperature Pulse Rate 82 77 Respiratory Rate 16 18 Blood Pressure 125/61 120/57 L Pulse Oximetry 94 94 BMI result Body Mass Index 37.7 VITAL SIGNS: Reviewed. GENERAL: Well developed, well nourished, in no acute distress. HEAD: Normocephalic/atraumatic EYES: PERRLA, EOMI EARS: Ext canals without abnormality OROPHARYNX: no oral lesions noted, posterior pharynx clear LUNGS: Normal breath sounds. No adventitious sounds or accessory muscle use. SpO2<96> CARDIOVASCULAR: Regular rate and rhythm without noted murmurs, no JVD or lower extremity edema. ABDOMEN: Soft, mild discomfort on deep palpation but patient states that she primarily feels that ?in her back?, non-distended with bowel sounds. MUSCULOSKELETAL: No tenderness, deformities, or effusions noted on gross inspec tion. EXTREMITIES: No cyanosis, clubbing or edema. SKIN: Inspection of the skin reveals no rashes, no jaundice NEUROLOGIC: Alert and oriented x 4. Strength and sensation to light touch were grossly intact x 4. Course Course Course Narrative: 66-year-old female with history and clinical presentation suggestive of possible gastric/pancreatic etiology and lower suspicion for cholecystitis. Review of all investigations negative for acute findings and on review of patient's CT scan which was negative as well as her ultrasound this evening suspect that patient may have a stomach ulcer as she did receive some mild relief after drinking the GI cocktail. She will receive a dose of Carafate and all results were discussed with her as well as the possibility of an ulcer in her stomach. She was encouraged to follow-up with her primary care provider to better assess this in the outpatient setting. MDM - Abdominal Pain Lab Data Result diagrams: 11/06/21 20:31 11/06/21 20: Labs: Lab Results 11/06/21 11/06/21 11/06/21 Range/Units 20:31 20:31 20:31 WBC 9.7 (4.8-10.8) X10*3/uL RBC 4.70 (4.20-5.50) X10*6/uL Hgb 13.8 (12.0-16.0) g/dl Hct 41.8 (37.0-47.0) % MCV 88.9 (80.0-98.0) fL MCH 29.4 (27.0-33.0) pg MCHC 33.0 (31.0-35.0) g/dl RDW 14.0 (11.0-16.0) % Plt Count 188 (160-400) X10*3/uL MPV 13.0 H (9.4-12.3) fL Immature Gran % (Auto) 0.3 (0.0-0.4) % Neut % (Auto) 63.1 (45-73) % Lymph % (Auto) 25.5 (20-40) % [place] % (Auto) 9.3 (2-11) % Eos % (Auto) 1.3 (0-4) % Baso % (Auto) 0.5 (0-2) % Lymph # (Auto) 2.5 (1.2-4.9) X10*3/uL [place] # (Auto) 0.9 (0.1-1.2) X10*3/uL Eos # (Auto) 0.1 (0.0-0.4) X10*3/uL Baso # (Auto) 0.1 (0.0-0.2) X10*3/uL Abs Immat Gran (auto) 0.03 (0.00-0.03) X10*3/uL Absolute Neuts (auto) 6.1 (2.0-8.3) x10*3/uL Absolute Nucleated RBC 0.000 (0.0-0.012) X10*3/uL Nucleated RBC % (auto) 0.0 (0.0-0.2) /100WBC Sodium 136 (135-145) mmol/L Potassium 4.8 (3.3-5.1) mmol/L Chloride 105 (96-108) mmol/L Carbon Dioxide 19 L (22-29) mmol/L Anion Gap 17 (12-20) BUN 32 H D (9-16) mg/dL Creatinine 1.18 (0.5-1.4) mg/dL Estim Creat Clear Calc 46.8 Estimated GFR 46 Random Glucose 136 H (60-115) mg/dL Calcium 9.5 (8.4-10.2) mg/dL Total Bilirubin 0.8 (0.0-1.0) mg/dL Direct Bilirubin 0.3 (0.0-0.5) mg/dL AST 21 (5-31) U/L ALT 14 (0-31) U/L Alkaline Phosphatase 91 (39-117) U/L Troponin I High Sens < 3.5 (<3.5-17.0) ng/L Total Protein 8.0 (6.5-8.0) g/dL Albumin 4.2 (3.5-5.0) g/dL Lipase 27 (8-78) U/L Urine Color Urine Appearance Urine pH (5.0-8.0) Ur Specific [place] (1.005-1.025) Urine Protein (NEG-TRACE) MG/DL Urine Glucose (UA) (NEG) MG/DL Urine Ketones (NEG) MG/DL Urine Blood (NEG) Urine Nitrite (NEG) Ur Leukocyte Esterase (NEG) Urine RBC (0) /HPF Urine WBC (0-4) /HPF Ur Squamous Epith Cells /LPF Urine Bacteria /LPF Urine Mucus /LPF 11/07/21 Range/Units 00:47 WBC (4.8-10.8) X10*3/uL RBC (4.20-5.50) X10*6/uL Hgb (12.0-16.0) g/dl Hct (37.0-47.0) % MCV (80.0-98.0) fL MCH (27.0-33.0) pg MCHC (31.0-35.0) g/dl RDW (11.0-16.0) % Plt Count (160-400) X10*3/uL MPV (9.4-12.3) fL Immature Gran % (Auto) (0.0-0.4) % Neut % (Auto) (45-73) % Lymph % (Auto) (20-40) % [place] % (Auto) (2-11) % Eos % (Auto) (0-4) % Baso % (Auto) (0-2) % Lymph # (Auto) (1.2-4.9) X10*3/uL [place] # (Auto) (0.1-1.2) X10*3/uL Eos # (Auto) (0.0-0.4) X10*3/uL Baso # (Auto) (0.0-0.2) X10*3/uL Abs Immat Gran (auto) (0.00-0.03) X10*3/uL Absolute Neuts (auto) (2.0-8.3) x10*3/uL Absolute Nucleated RBC (0.0-0.012) X10*3/uL Nucleated RBC % (auto) (0.0-0.2) /100WBC Sodium (135-145) mmol/L Potassium (3.3-5.1) mmol/L Chloride (96-108) mmol/L Carbon Dioxide (22-29) mmol/L Anion Gap (12-20) BUN (9-16) mg/dL Creatinine (0.5-1.4) mg/dL Estim Creat Clear Calc Estimated GFR Random Glucose (60-115) mg/dL Calcium (8.4-10.2) mg/dL Total Bilirubin (0.0-1.0) mg/dL Direct Bilirubin (0.0-0.5) mg/dL AST (5-31) U/L ALT (0-31) U/L Alkaline Phosphatase (39-117) U/L Troponin I High Sens (<3.5-17.0) ng/L Total Protein (6.5-8.0) g/dL Albumin (3.5-5.0) g/dL Lipase (8-78) U/L Urine Color YELLOW Urine Appearance CLEAR Urine pH 6.0 (5.0-8.0) Ur Specific [place] 1.020 (1.005-1.025) Urine Protein NEG (NEG-TRACE) MG/DL Urine Glucose (UA) NEG (NEG) MG/DL Urine Ketones NEG (NEG) MG/DL Urine Blood NEG (NEG) Urine Nitrite NEG (NEG) Ur Leukocyte Esterase 1+ H (NEG) Urine RBC 0-2 (0) /HPF Urine WBC 10-14 H (0-4) /HPF Ur Squamous Epith Cells 2+ /LPF Urine Bacteria 1+ /LPF Urine Mucus TRACE /LPF ECG Data Attestation: I personally reviewed and interpreted this ECG as follows: Prior ECG tracings: available for review Interpretation: NSR, HR-76, no STEMI, MT/QRS/QTC are within normal limits. Discharge Plan Discharge Clinical Impression: Epigastric pain, Gastritis, Gastric ulcer Patient Disposition: Home, Self-Care Instructions: Peptic Ulcer (ED), Gastritis (ED), Helicobacter Pylori (ED), Diet for Stomach Ulcers and Gastritis (ED), Epigastric Pain (ED) Additional Instructions: 1. Resume all home medications as prescribed. 2. You have been provided with a prescription for medications that will help out if you have an ulcer. You will need to increase her water intake as that can lead to constipation. 3. Follow-up with your primary care provider by calling the office this morning and inform them that you had an ultrasound here in the emergency room tonight. Return to the ER for any worsening symptoms. Prescriptions: New sucralfate [Carafate] 100 mg/mL suspension 10 ml PO BID Qty: 420 0RF No Action levothyroxine 50 mcg tablet 50 mcg PO QAM Qty: 90 0RF amlodipine 10 mg tablet 10 mg PO DAILY Qty: 90 0RF olmesartan 40 mg tablet 40 mg PO DAILY Qty: 30 3RF cholecalciferol (vitamin D3) [Vitamin D3] 25 mcg (1,000 unit) Tablet 25 mcg PO DAILY 0RF tramadol 50 mg tablet 50 mg PO Q6H PRN (Reason: pain) Qty: 20 0RF aspirin [Adult Aspirin Regimen] 81 mg tablet,delayed release (DR/EC) 81 mg PO DAILY 0RF spironolactone 50 mg tablet 50 mg PO QAM 30 Days Qty: 30 0RF Referrals: Keila Garcia MD [Primary Care Provider] -
--- NOTE | 2021-11-07 02:23 | ECG_ITS ---
Test Reason : CHEST PAIN Blood Pressure : / mmHG Vent. Rate : 076 BPM Atrial Rate : 076 BPM P-R Int : 150 ms QRS Dur : 084 ms QT Int : 402 ms P-R-T Axes : 052 -18 042 degrees QTc Int : 452 ms Normal sinus rhythm Normal ECG When compared with ECG of 28-OCT-2021 11:31, No significant change was found Referred By: Brittni Phillips Electronically Signed By:ASHLEY GARZON MD
[2021-11-07] MEDS: Magnesium Hydrox/Alum Hydrox 30 ML ORAL.SUSP PO (02:33)
[2021-11-07] MEDS: Lidocaine HCl Viscous 2 % 15 ML SOLUTION 10 ML MUCOUS MEM (02:33)
[2021-11-07 02:48] LABS: Troponin-I High Sensitivity < 3.5 ng/L (<3.5-17.0)
[2021-11-07 04:20] VITALS: BP 124/61; PULSE 76; RESP 15; TEMP 36.8; O2SAT 96
[2021-11-07 04:36] VITALS: BP 125/61; PULSE 82; RESP 16; O2SAT 94
[2021-11-07 05:59] VITALS: BP 120/57; PULSE 77; RESP 18; O2SAT 94
[2021-11-07] MEDS: Sucralfate Oral Suspension 1 GM/10 ML ORAL.SUSP PO (06:26)
== END 2021-11-07 06:48 | disposition home or self-care (01) ==
PROVIDERS: Emergency Provider Student in an Organized Health Care Education/Training Program; PCP Internal Medicine
DX: K29.00 Acute gastritis without bleeding (principal); R10.11 Right upper quadrant pain; M54.50 Low back pain, unspecified; Z79.899 Other long term (current) drug therapy
CPT/HCPCS: 36415; 76705; 80048; 80076; 81001; 83690; 84484; 85025; 87086; 93005; 99284

== ENCOUNTER → 2021-11-27 09:01 | Outpatient (BNVA) | payer BC, MEDICARE, SELFPAY | PROVIDERS: PCP Internal Medicine; Referring Provider Internal Medicine; Visit Provider Physician Assistant | DX: K21.9 Gastro-esophageal reflux disease without esophagitis (principal); K46.9 Unspecified abdominal hernia without obstruction or gangrene | CPT/HCPCS: 99212 ==

== ENCOUNTER 2021-12-14 10:02 | Outpatient (REF) | payer MEDICARE, BC, SELFPAY ==
[2021-12-15 13:51] LABS: H Pylori Breath Test Positive (Negative)
== END 2021-12-14 10:03 | disposition home or self-care (01) ==
LOC: HO.LNP 10:02
PROVIDERS: Visit Provider Physician Assistant
DX: A04.8 Other specified bacterial intestinal infections (principal)
CPT/HCPCS: 83013

== ENCOUNTER 2022-01-17 15:08 | Outpatient (REF) | payer MEDICARE, BC, SELFPAY ==
[2022-01-18 14:08] LABS: H Pylori Breath Test Negative (Negative)
== END 2022-01-17 15:09 | disposition home or self-care (01) ==
LOC: HO.LNP 15:08
PROVIDERS: Visit Provider Physician Assistant
DX: Z13.89 Encounter for screening for other disorder (principal)
CPT/HCPCS: 83013

== ENCOUNTER → 2022-01-18 10:06 | Outpatient (BNVA) | payer MEDICARE, BC, SELFPAY | PROVIDERS: PCP Internal Medicine | DX: Z13.9 Encounter for screening, unspecified (principal); N20.0 Calculus of kidney | CPT/HCPCS: 99202 ==

== ENCOUNTER 2022-01-19 08:52 | Inpatient (IN) | payer MEDICARE, BC, SELFPAY ==
[2022-01-19] VITALS (18 sets, daily range): BP systolic 71–112; BP diastolic 37–65; PULSE 74–117; RESP 11–20; TEMP 36.6–37.1; O2SAT 92–98; BMI 35.3
--- NOTE | ~2022-01-19 | MR_ITS ---
EXAMINATION: MRI ABDOMEN WITHOUT CONTRAST (MRCP) CLINICAL INFORMATION: Dilated common bile duct COMPARISON: Ultrasound 01/19/[address] abdomen pelvis for example 02/26/2021 TECHNIQUE: Multiplanar MR images through the abdomen were obtained on a 1.5 Shikha MR system without IV contrast. Heavily T2-weighted MRCP sequences of the biliary tree were obtained in multiple planes. FINDINGS: LUNG BASES: Lung bases are clear. LIVER: The liver is normal in size and signal. No hepatic steatosis is seen. No focal cystic or solid mass is present. GALLBLADDER: Gallbladder is significantly distended. No gallbladder wall thickening or pericholecystic fluid seen however. BILIARY TREE: Moderate central intrahepatic biliary ductal dilatation is present. The common bile duct is dilated to 1.8 cm in diameter. No intraluminal filling defects seen. PANCREAS: The pancreatic duct is mildly dilated measuring 4-5 mm in the head and neck of the pancreas tapering to normal caliber, 2 mm in the body and tail of the pancreas. No pancreatic mass seen. No peripancreatic inflammatory changes. SPLEEN: Normal. Normal size. No focal lesion. ADRENAL GLANDS: Normal. No adrenal mass. KIDNEYS AND URETERS: Normal size and signal. No hydronephrosis or mass. LYMPHOVASCULAR STRUCTURES: Normal caliber aorta. IVC patent. No pathologically enlarged abdominal or retroperitoneal lymphadenopathy by size criteria OSSEOUS STRUCTURES: No acute or suspicious osseous abnormalities. No ascites. Stomach is collapsed. Small bowel nondilated. Better seen on the prior CT scan 10/28/2021, there is circumferential wall thickening of the midportion of the duodenum, for example coronal CT series 16 image 44/111. The common bile duct was normal in caliber on the prior CT scan. MR/MR MRCP IMPRESSION: New common bile duct dilation to 1.8 cm tapering abruptly in the head of the pancreas. New moderate intrahepatic biliary ductal dilatation is seen. There is also new mild dilation of the proximal pancreatic duct, up to 4-5 mm in the head and neck of the pancreas, tapering to normal caliber in the body. Better seen on the prior CT 10/28/2021 but visible on the current MRI as well, there is circumferential wall thickening of the mid duodenum likely extending to involve the region of the ampulla on the current study possibly previously as well. Most likely the process that accounts for the duodenal wall thickening accounts for the dilation of the common bile duct and pancreatic duct as no discrete pancreatic head mass is seen albeit on noncontrast imaging. Recommend upper endoscopy/ERCP for further evaluation. The wall thickening could represent infectious or inflammatory duodenitis but a malignancy is a concern as well. There is circumferential appearance on the prior CT scan argues against simple ulcer disease. See humphrey images.
--- NOTE | ~2022-01-19 | CT_ITS ---
EXAMINATION: CT ABDOMEN AND PELVIS WITH AND WITHOUT CONTRAST: CT GI BLEEDING STUDY CLINICAL INFORMATION: Lower GI bleeding. COMPARISON: MRCP earlier the same day. TECHNIQUE: Multidetector volumetric imaging was performed from the lung bases to the pubic symphysis before and after (precontrast, arterial phase, and 2 minute delayed) the administration of: Intravenous contrast: 80 mL Omnipaque 350 No contrast reaction reported Coronal and sagittal reformatted images were obtained. This CT examination was performed using dose optimization techniques as appropriate, variously including the following: *Automated exposure control *Adjustment of mA and/or kV according to patient size (this includes techniques or standardized protocols for targeted exams where dose is matched to indication/reason for exam; i.e. extremities or head) *Use of iterative reconstruction technique Total exam dose-length product 1787 mGy-cm FINDINGS: STOMACH: There is high density material within the distal esophagus and and throughout the stomach on the precontrast images, which limits evaluation for extravasated contrast in the setting of GI bleeding. No abnormal wall thickening. SMALL BOWEL: There is scattered high density material within the lumen of the small bowel particularly in the duodenum and distal small bowel in the pelvis, on precontrast images, which limits evaluation for extravasated contrast in the setting of active GI bleeding at the time of the scan. Again seen is circumferential wall thickening of the proximal duodenum in the region of the ampulla. There is subtle adjacent fat stranding. There may be some lateral ulceration, for example coronal series 12 image 47/123. This does appear to extend to involve the region of the ampulla as evidence by the dilated common bile duct and pancreatic duct. The remainder of the small bowel is normal in caliber with no abnormal wall thickening or dilation. COLON: No abnormal intraluminal contrast accumulation. No abnormal wall thickening. Diverticulosis without evidence of diverticulitis. Normal appendix. LUNG BASES: No nodules, mass, or focal consolidation. PLEURA: No pleural effusion. LIVER, GALLBLADDER, AND BILIARY TREE: No focal liver lesion seen. As noted on the earlier MRCP, there is moderate central intrahepatic biliary ductal dilatation. The gallbladder is significantly distended with subtle pericholecystic fluid. No gallbladder wall thickening. No radiodense gallstones seen. The common bile duct is again noted to be dilated up to 1.9 cm as seen on the MRCP. It tapers abruptly in the region of the ampulla with the duodenal wall thickening is seen. PANCREAS: There is dilation of the pancreatic duct in the head and neck of the pancreas to 5 mm, tapering in the body and tail of the pancreas. No pancreatic mass seen. SPLEEN: Normal size. No focal lesion. ADRENAL GLANDS: Normal; no mass. KIDNEYS AND URETERS: The kidneys are normal in size, shape, and attenuation. No hydronephrosis, hydroureter, or calculi. ABDOMINAL WALL: Multicompartment fat-containing hernia of the ventral midline pelvic wall musculature. LYMPHOVASCULAR STRUCTURES: No lymphadenopathy. The aorta is normal in caliber. BLADDER: No focal mass or wall thickening seen. No bladder calculi. PELVIC VISCERA: Normal CT appearance of the uterus. No adnexal mass seen. OSSEOUS STRUCTURES: Multilevel degenerative changes with severe degenerative disc disease at L5-S1. Posterior osteophytosis effaces the ventral CSF space at L5-S1. Severe multilevel facet arthropathy especially on the left at L5-S1. CT/CT gi bleed abd pel wo/w con IMPRESSION: There is high density ingested material within the stomach and small bowel on the precontrast images which limits evaluation for intraluminal extravasated IV contrast in the setting of active GI bleeding. No site of active GI bleeding confirmed on the scan. As noted on the earlier MRCP, however, there is circumferential abnormal wall thickening of the duodenum including the region of the ampulla. There is subtle adjacent fat stranding with an area of possible ulceration laterally. Although this could be infectious or inflammatory, a malignancy is a consideration. This process likely accounts for obstruction of the distal common bile duct and pancreatic duct in the region of the ampulla. Recommend upper endoscopy/ERCP for further evaluation.
--- NOTE | ~2022-01-19 | US_ITS ---
EXAMINATION: US ABDOMEN LIMITED CLINICAL INFORMATION: Right upper quadrant elevated LFTs. COMPARISON: Previous dated 11/08/2021 TECHNIQUE: Real-time imaging of the right upper quadrant abdominal viscera. FINDINGS: PANCREAS: Normal. The pancreas is not adequately seen. There is no free fluid in the area. The liver is heterogeneous in echotexture. No obvious lesion or ductal dilatation. The gallbladder appears distended. There is some mild heterogeneous echotexture at the articulation with the liver therefore an element of pericholecystic fluid or wall thickening could not be excluded. There is no stone seen here. The common duct measures 1.5 cm. The director of investigations notes debris within the common duct. This could represent stones. The right kidney is measuring 11 cm. There is no hydronephrosis. Upper pole echogenicity could represent calculus. Measures 1 cm US/US abdomen limited IMPRESSION: The common duct is dilated here with possible echogenicities within the duct. The duct is increasing in caliber from previous ultrasound. There is no convincing evidence for intrahepatic ductal dilatation at this time. The gallbladder appears distended. No stone is seen but I cannot exclude some mild pericholecystic fluid. The pancreas is not adequately visualized. There is no free fluid. Consider MR/MRCP to fully evaluate
--- NOTE | ~2022-01-19 | XR_ITS ---
EXAMINATION: XR CHEST CLINICAL INFORMATION: Weakness and shortness of breath COMPARISON: Previous chest x-ray October 2021 TECHNIQUE: Frontal view of the chest was obtained. FINDINGS: The cardiac and mediastinal contours are stable. The lungs are clear. There is no pleural effusion or pneumothorax. There are degenerative changes of the spine and shoulders. XR/XR chest 1V IMPRESSION: No evidence for acute disease in the chest.
--- NOTE | 2022-01-19 09:04 | ECG_ITS ---
Test Reason : DIZZINESS Blood Pressure : / mmHG Vent. Rate : 085 BPM Atrial Rate : 085 BPM P-R Int : 130 ms QRS Dur : 074 ms QT Int : 382 ms P-R-T Axes : 063 005 049 degrees QTc Int : 454 ms Normal sinus rhythm Normal ECG When compared with ECG of 07-NOV-2021 03:52, No significant change was found Referred By: Polina Mancilla Electronically Signed By:ASHLEY GARZON MD
--- NOTE | 2022-01-19 09:11 | ED.DIZZY ---
HPI - Dizziness General Chief Complaint: Dizziness Stated Complaint: LOW BP 92/60, TREMORS,SOB Time Seen by Provider: 01/19/22 09:01 Source: patient, EMS and old records reviewed Mode of arrival: EMS Limitations: no limitations History of Present Illness HPI Narrative: 66-year-old female with a history of hypertension, kidney stones, H pylori, restless leg syndrome, DARRYL on CPAP, hypothyroidism who presents to the ER for evaluation of hypotension, lightheadedness and dizziness. She states over the last couple of weeks she has been weaned off of all of her blood pressure medications because her blood pressure has been low. She last took 2 of her blood pressure medications yesterday and was told to stop them completely. She cannot recall their names. She reports she has been taking her blood pressure and has been on the lower side, systolics 80s and 90s. She has felt lightheaded and dizzy, especially with movement and changing and body positions. Today when she was in the bathroom she felt so lightheaded and dizzy that she could not stand up off the toilet. Her legs feel extremely weak. After some rest she was able to muster up the energy to get up and walk to her chair in the living room. EMS was called due to her weakness and lightheadedness. She reports she has had shortness of breath with exertion. She denies any chest pain, nausea, vomiting, abdominal pain. No fever or chills. No signs or symptoms of infection. Patient was found to have blood pressures 80s/50s by EMS. She was brought to the ER for further evaluation. Patient reports over the last 4 months she has lost about 30-35 lb. Her previous med list included amlodipine, olmesartan, & spironolactone. MD elicited complaint: dizziness and lightheadedness Pertinent past history: other (Hypertension, being weaned off medications.) Onset (ago): week(s) Timing: sudden onset, intermittent and episodic Severity: severe Description: room spinning and lightheadedness Context: change in medication and change in body position History of similar symptoms: Yes Exacerbating factors: movement/ambulation, change in body position, exertion and standing Relieving factors: rest and lying down Associated symptoms: malaise, shortness of breath and weakness Related Data Home Medications Medication Instructions Recorded Confirmed aspirin 81 mg tablet,delayed 81 mg PO DAILY 04/26/20 01/18/22 release (Adult Aspirin Regimen) cholecalciferol (vitamin D3) 25 25 mcg PO DAILY 05/15/20 01/18/22 mcg (1,000 unit) tablet (Vitamin D3) gabapentin 100 mg capsule 100 mg PO DAILY 11/09/21 01/18/22 Previous Rx's Medication Instructions Recorded amlodipine 10 mg tablet 10 mg PO DAILY #90 tabs 09/25/21 bismuth subsalicylate 262 mg 2 tab PO QID 14 days #112 tabs 12/19/21 chewable tablet (Bismuth) omeprazole 20 mg capsule,delayed 20 mg PO BID 14 days #28 caps 12/19/21 release olmesartan 20 mg tablet 20 mg PO DAILY 30 days #30 tabs 12/25/21 spironolactone 50 mg tablet 50 mg PO QAM 30 days #90 tabs 12/26/21 levothyroxine 50 mcg tablet 50 mcg PO QAM #90 tabs 01/03/22 hydroxyzine HCl 25 mg tablet 25 mg PO BID PRN itching #30 tabs 01/11/22 Allergies Allergy/AdvReac Type Severity Reaction Status Date / Time No Known Allergies Allergy Verified 01/18/22 11:47 Review of Systems Review of Systems: Constitutional: No Fever, No Chills ENT/Mouth: No sore throat, No Rhinorrhea, No Swallowing Difficulty Eyes: No Eye Pain, No Swelling, No Redness Cardiovascular: No Chest Pain, No SOB, No Orthopnea, No Edema Respiratory: No Cough, No Sputum, No Wheezing, + dyspnea Gastrointestinal: No Nausea, No Vomiting, + Diarrhea, No abdominal Pain, No Hematochezia, + Melena Genitourinary: No Dysuria, No Urinary Frequency, No Hematuria Musculoskeletal: No joint pain, No Myalgias Skin: No Skin Lesions, No rash Neuro: +Weakness, No Numbness, + Dizziness, No Headache Psych: No Anxiety/Panic, No Depression Heme/Lymph: No Bruising, No Lymphadenopathy Endocrine: No Polyuria, No Polydipsia PMFSH Past Medical History Medical History Acid reflux Arthritis Cancer Chronic constipation Hx of radiation therapy Hypertension, essential Hypothyroidism Lab test negative for COVID-19 virus Sleep apnea TIA (transient ischemic attack) Surgical History H/O colonoscopy History of extraction of renal calculus Hx of breast lump removal Hx of section No pertinent past surgical history Family History Family History Father No problems noted. Mother HTN (hypertension) Other Substance use disorder Social History Social History Household Members: Spouse Household Members Other:: Custody of 3 grandchildren, she and her are [id number], 15 and 17 Housing: House Alcohol intake: never Patient Tobacco Use Status: Never used Tobacco e-Cigarette/Vaping Use: Never Used Second Hand Smoke Exposure: No Advance Directives: Yes Advance Directives Information Provided: Yes Advance Directives on File: No service: No Current occupational status: retired Cognitive needs: No Hearing needs: No Vision needs: Yes Physical Exam Vital Signs: Vital Signs: Last Vital Signs Temp 98.2 F 01/19/22 11:44 Pulse 93 01/19/22 11:44 Resp 12 01/19/22 11:44 BP 91/46 L 01/19/22 11:44 Pulse Ox 98 01/19/22 11:44 O2 Del Method 01/19/22 11:44 BMI result Body Mass Index 35.3 Appearance: Alert. Oriented X3. No acute distress. Eyes: Pupils equal, round and reactive to light. EOMI, no nystagmus. ENT: Pharynx normal. Neck: Normal inspection. Neck supple. CVS: Normal heart rate and rhythm. Pulses normal. Respiratory: No respiratory distress. Breath sounds normal. Abdomen: Soft and nontender. +BS x4 Skin: Skin warm and dry. Normal skin color. Normal skin turgor. No rashes. Extremities: No lower extremity edema. Neuro: Oriented X 3. No motor deficit. No sensory deficit. CN II-XII intact. Strength equal and symmetrical throughout. Conversant and appropriate. Course Course Course Narrative: 66-year-old female with a history of HTN, H pylori, kidney stones with plan for an elective lithotripsy, restless legs, hypothyroidism who comes to the ER for evaluation of symptomatic hypotension. She has been weaned off of her blood pressure medications recently, last took 2 of them yesterday. Will call the pharmacy to confirm what medications these are. Patient was seen by Urology and her primary care doctor yesterday. She was instructed to hold her antihypertensive medications. On arrival to the ER patient's blood pressure 71/47. She is slightly lightheaded, improved with rest and lying down. HR 90. She is afebrile. Patient's hypotension is most likely due to her medications. She has lost over 30 lb in the recent months. This may have normalized her blood pressure. Will do a septic workup rule out infection. She is warm and well perfused, doubt cardiac etiology. Will get EKG and comprehensive workup. Dispo pending results and improvement. IV fluids infusing. Will check orthostatic vital signs after 1 L of IV fluid. Reevaluation(s) Reevaluation #1: Patient's lab workup returning with acute anemia. Her H&H dropped significantly from November when it was 13.8/41.8 to 8.9/28 today. MCV is normal, white count and platelets are also normal. Will add iron panel and reticulocyte count. Patient also has a slightly elevated lactic acid, 2.4. This is consistent with her hypotension, still no signs of infection. Doubt sepsis. Patient has significant elevations in her LFTs. She has no abdominal tenderness. Upon further questioning patient does report that she has had very dark stools since being on antibiotics for her H pylori. She has been off of the antibiotics for 2 weeks now but the black and dark stools persisted. Yesterday she had 1 episode of black loose stool. She attributed her stool color change to being on the antibiotics and the H pylori. She denies a history of GI bleed. She is not on anticoagulation. Will plan to do a type and screen, transfuse 1 unit of PRBCs given her symptomatic anemia. Will get right upper quadrant ultrasound for further evaluation of her elevated liver function tests. Could be due to shock liver due to hypotension. Reevaluation #2: RUQ U/S showing The common duct is dilated here with possible echogenicities within the duct. The duct is increasing in caliber from previous ultrasound. There is no convincing evidence for intrahepatic ductal dilatation at this time. ?The gallbladder appears distended. No stone is seen but I cannot exclude some mild pericholecystic fluid. ?The pancreas is not adequately visualized. There is no free fluid. Consider MR/MRCP to fully evaluate Dr. Salmeron made aware - agree MRCP. doubt choledocholithiasis without pain or symptoms. Reevaluation #3: Patient to be admitted for further management of her symptomatic anemia, hypotension and elevated liver enzymes. Patient and family updated on plan of care. Consultations Consultation #1: Gastroenterology - Dr. Salmeron TT @ 10:30am and made aware of patient and plan for admission MDM - Dizziness Medical Records Attestation: I reviewed the patient's medical records. Lab Data Attestation: I reviewed the patient's lab results. Result diagrams: 01/19/22 09:35 01/19/22 09:35 Labs: Lab Results 01/19/22 01/19/22 01/19/22 Range/Units 09:35 09:35 09:35 WBC 8.9 (4.8-10.8) X10*3/uL RBC 2.95 L D (4.20-5.50) X10*6/uL Hgb 8.9 L D (12.0-16.0) g/dl Hct 28.0 L D (37.0-47.0) % MCV 94.9 (80.0-98.0) fL MCH 30.2 (27.0-33.0) pg MCHC 31.8 (31.0-35.0) g/dl RDW 16.5 H (11.0-16.0) % Plt Count 174 (160-400) X10*3/uL MPV 12.6 H (9.4-12.3) fL Immature Gran % (Auto) 1.0 H (0.0-0.4) % Neut % (Auto) 81.7 H (45-73) % Lymph % (Auto) 5.8 L (20-40) % [place] % (Auto) 10.6 (2-11) % Eos % (Auto) 0.7 (0-4) % Baso % (Auto) 0.2 (0-2) % Lymph # (Auto) 0.5 L (1.2-4.9) X10*3/uL [place] # (Auto) 0.9 (0.1-1.2) X10*3/uL Eos # (Auto) 0.1 (0.0-0.4) X10*3/uL Baso # (Auto) 0.0 (0.0-0.2) X10*3/uL Abs Immat Gran (auto) 0.09 H (0.00-0.03) X10*3/uL Absolute Neuts (auto) 7.2 (2.0-8.3) x10*3/uL Absolute Nucleated RBC 0.000 (0.0-0.012) X10*3/uL Nucleated RBC % (auto) 0.0 (0.0-0.2) /100WBC Absolute Retic 0.070 (0.026-0.095) X10*6/uL Percent Retic 2.4 H (0.5-1.8) % Immature Retic Fraction 9.8 (3.0-15.9) % Retic Hgb Equivalent 32.6 (30.0-35.0) pg Sodium 137 (135-145) mmol/L Potassium 5.5 H (3.3-5.1) mmol/L Chloride 111 H (96-108) mmol/L Carbon Dioxide 20 L (22-29) mmol/L Anion Gap 12 (12-20) BUN 42 H (9-16) mg/dL Creatinine 1.51 H (0.5-1.4) mg/dL Estim Creat Clear Calc 35.2 Estimated GFR 35 Random Glucose 212 H (60-115) mg/dL Lactic Acid (0.5-2.0) mmol/L Calcium 8.2 L D (8.4-10.2) mg/dL Magnesium 1.8 (1.6-2.6) mg/dL Iron 73 (30-160) mcg/dL TIBC 206 L (228-428) mcg/dL % Saturation 35 (15-50) % Unsat Iron Binding 133 ug/dL Total Bilirubin 3.7 H (0.0-1.0) mg/dL Direct Bilirubin 2.8 H (0.0-0.5) mg/dL AST 248 H (5-31) U/L ALT 189 H (0-31) U/L Alkaline Phosphatase 361 H D (39-117) U/L B-Natriuretic Peptide (<100) pg/mL Total Protein 5.4 L D (6.5-8.0) g/dL Albumin 3.1 L D (3.5-5.0) g/dL TSH (0.32-4.0) uIU/mL Urine Color Urine Appearance Urine pH (5.0-8.0) Ur Specific [place] (1.005-1.025) Urine Protein (NEG-TRACE) MG/DL Urine Glucose (UA) (NEG) MG/DL Urine Ketones (NEG) MG/DL Urine Blood (NEG) Urine Nitrite (NEG) Ur Leukocyte Esterase (NEG) Stool Occult Blood (NEGATIVE) Urine Opiates Screen (Not Detect) Urine Fentanyl Screen (Not Detect) Ur Barbiturates Screen (Not Detect) Ur Phencyclidine Scrn (Not Detect) Ur Amphetamines Screen (Not Detect) U Benzodiazepines Scrn (Not Detect) Urine Cocaine Screen (Not Detect) U Marijuana (THC) Screen (Not Detect) COVID-19 (ISABEL) Negative (Negative) COVID-19 Clin Com See Note Blood Type Antibody Screen Crossmatch 01/19/22 01/19/22 01/19/22 Range/Units 09:35 09:35 09:35 WBC (4.8-10.8) X10*3/uL RBC (4.20-5.50) X10*6/uL Hgb (12.0-16.0) g/dl Hct (37.0-47.0) % MCV (80.0-98.0) fL MCH (27.0-33.0) pg MCHC (31.0-35.0) g/dl RDW (11.0-16.0) % Plt Count (160-400) X10*3/uL MPV (9.4-12.3) fL Immature Gran % (Auto) (0.0-0.4) % Neut % (Auto) (45-73) % Lymph % (Auto) (20-40) % [place] % (Auto) (2-11) % Eos % (Auto) (0-4) % Baso % (Auto) (0-2) % Lymph # (Auto) (1.2-4.9) X10*3/uL [place] # (Auto) (0.1-1.2) X10*3/uL Eos # (Auto) (0.0-0.4) X10*3/uL Baso # (Auto) (0.0-0.2) X10*3/uL Abs Immat Gran (auto) (0.00-0.03) X10*3/uL Absolute Neuts (auto) (2.0-8.3) x10*3/uL Absolute Nucleated RBC (0.0-0.012) X10*3/uL Nucleated RBC % (auto) (0.0-0.2) /100WBC Absolute Retic (0.026-0.095) X10*6/uL Percent Retic (0.5-1.8) % Immature Retic Fraction (3.0-15.9) % Retic Hgb Equivalent (30.0-35.0) pg Sodium (135-145) mmol/L Potassium (3.3-5.1) mmol/L Chloride (96-108) mmol/L Carbon Dioxide (22-29) mmol/L Anion Gap (12-20) BUN (9-16) mg/dL Creatinine (0.5-1.4) mg/dL Estim Creat Clear Calc Estimated GFR Random Glucose (60-115) mg/dL Lactic Acid 2.4 H* (0.5-2.0) mmol/L Calcium (8.4-10.2) mg/dL Magnesium (1.6-2.6) mg/dL Iron (30-160) mcg/dL TIBC (228-428) mcg/dL % Saturation (15-50) % Unsat Iron Binding ug/dL Total Bilirubin (0.0-1.0) mg/dL Direct Bilirubin (0.0-0.5) mg/dL AST (5-31) U/L ALT (0-31) U/L Alkaline Phosphatase (39-117) U/L B-Natriuretic Peptide 15 (<100) pg/mL Total Protein (6.5-8.0) g/dL Albumin (3.5-5.0) g/dL TSH 1.09 (0.32-4.0) uIU/mL Urine Color Urine Appearance Urine pH (5.0-8.0) Ur Specific [place] (1.005-1.025) Urine Protein (NEG-TRACE) MG/DL Urine Glucose (UA) (NEG) MG/DL Urine Ketones (NEG) MG/DL Urine Blood (NEG) Urine Nitrite (NEG) Ur Leukocyte Esterase (NEG) Stool Occult Blood (NEGATIVE) Urine Opiates Screen (Not Detect) Urine Fentanyl Screen (Not Detect) Ur Barbiturates Screen (Not Detect) Ur Phencyclidine Scrn (Not Detect) Ur Amphetamines Screen (Not Detect) U Benzodiazepines Scrn (Not Detect) Urine Cocaine Screen (Not Detect) U Marijuana (THC) Screen (Not Detect) COVID-19 (ISABEL) (Negative) COVID-19 Clin Com Blood Type Antibody Screen Crossmatch 01/19/22 01/19/22 01/19/22 Range/Units 09:59 09:59 11:27 WBC (4.8-10.8) X10*3/uL RBC (4.20-5.50) X10*6/uL Hgb (12.0-16.0) g/dl Hct (37.0-47.0) % MCV (80.0-98.0) fL MCH (27.0-33.0) pg MCHC (31.0-35.0) g/dl RDW (11.0-16.0) % Plt Count (160-400) X10*3/uL MPV (9.4-12.3) fL Immature Gran % (Auto) (0.0-0.4) % Neut % (Auto) (45-73) % Lymph % (Auto) (20-40) % [place] % (Auto) (2-11) % Eos % (Auto) (0-4) % Baso % (Auto) (0-2) % Lymph # (Auto) (1.2-4.9) X10*3/uL [place] # (Auto) (0.1-1.2) X10*3/uL Eos # (Auto) (0.0-0.4) X10*3/uL Baso # (Auto) (0.0-0.2) X10*3/uL Abs Immat Gran (auto) (0.00-0.03) X10*3/uL Absolute Neuts (auto) (2.0-8.3) x10*3/uL Absolute Nucleated RBC (0.0-0.012) X10*3/uL Nucleated RBC % (auto) (0.0-0.2) /100WBC Absolute Retic (0.026-0.095) X10*6/uL Percent Retic (0.5-1.8) % Immature Retic Fraction (3.0-15.9) % Retic Hgb Equivalent (30.0-35.0) pg Sodium (135-145) mmol/L Potassium (3.3-5.1) mmol/L Chloride (96-108) mmol/L Carbon Dioxide (22-29) mmol/L Anion Gap (12-20) BUN (9-16) mg/dL Creatinine (0.5-1.4) mg/dL Estim Creat Clear Calc Estimated GFR Random Glucose (60-115) mg/dL Lactic Acid (0.5-2.0) mmol/L Calcium (8.4-10.2) mg/dL Magnesium (1.6-2.6) mg/dL Iron (30-160) mcg/dL TIBC (228-428) mcg/dL % Saturation (15-50) % Unsat Iron Binding ug/dL Total Bilirubin (0.0-1.0) mg/dL Direct Bilirubin (0.0-0.5) mg/dL AST (5-31) U/L ALT (0-31) U/L Alkaline Phosphatase (39-117) U/L B-Natriuretic Peptide (<100) pg/mL Total Protein (6.5-8.0) g/dL Albumin (3.5-5.0) g/dL TSH (0.32-4.0) uIU/mL Urine Color YELLOW Urine Appearance HAZY Urine pH 6.0 (5.0-8.0) Ur Specific [place] 1.015 (1.005-1.025) Urine Protein TRACE (NEG-TRACE) MG/DL Urine Glucose (UA) NEG (NEG) MG/DL Urine Ketones NEG (NEG) MG/DL Urine Blood NEG (NEG) Urine Nitrite NEG (NEG) Ur Leukocyte Esterase NEG (NEG) Stool Occult Blood POSITIVE (NEGATIVE) Urine Opiates Screen Not Detected (Not Detect) Urine Fentanyl Screen Not Detected (Not Detect) Ur Barbiturates Screen Not Detected (Not Detect) Ur Phencyclidine Scrn Not Detected (Not Detect) Ur Amphetamines Screen Not Detected (Not Detect) U Benzodiazepines Scrn Not Detected (Not Detect) Urine Cocaine Screen Not Detected (Not Detect) U Marijuana (THC) Screen Not Detected (Not Detect) COVID-19 (ISABEL) (Negative) COVID-19 Clin Com Blood Type Antibody Screen Crossmatch 01/19/22 Range/Units 11:27 WBC (4.8-10.8) X10*3/uL RBC (4.20-5.50) X10*6/uL Hgb (12.0-16.0) g/dl Hct (37.0-47.0) % MCV (80.0-98.0) fL MCH (27.0-33.0) pg MCHC (31.0-35.0) g/dl RDW (11.0-16.0) % Plt Count (160-400) X10*3/uL MPV (9.4-12.3) fL Immature Gran % (Auto) (0.0-0.4) % Neut % (Auto) (45-73) % Lymph % (Auto) (20-40) % [place] % (Auto) (2-11) % Eos % (Auto) (0-4) % Baso % (Auto) (0-2) % Lymph # (Auto) (1.2-4.9) X10*3/uL [place] # (Auto) (0.1-1.2) X10*3/uL Eos # (Auto) (0.0-0.4) X10*3/uL Baso # (Auto) (0.0-0.2) X10*3/uL Abs Immat Gran (auto) (0.00-0.03) X10*3/uL Absolute Neuts (auto) (2.0-8.3) x10*3/uL Absolute Nucleated RBC (0.0-0.012) X10*3/uL Nucleated RBC % (auto) (0.0-0.2) /100WBC Absolute Retic (0.026-0.095) X10*6/uL Percent Retic (0.5-1.8) % Immature Retic Fraction (3.0-15.9) % Retic Hgb Equivalent (30.0-35.0) pg Sodium (135-145) mmol/L Potassium (3.3-5.1) mmol/L Chloride (96-108) mmol/L Carbon Dioxide (22-29) mmol/L Anion Gap (12-20) BUN (9-16) mg/dL Creatinine (0.5-1.4) mg/dL Estim Creat Clear Calc Estimated GFR Random Glucose (60-115) mg/dL Lactic Acid (0.5-2.0) mmol/L Calcium (8.4-10.2) mg/dL Magnesium (1.6-2.6) mg/dL Iron (30-160) mcg/dL TIBC (228-428) mcg/dL % Saturation (15-50) % Unsat Iron Binding ug/dL Total Bilirubin (0.0-1.0) mg/dL Direct Bilirubin (0.0-0.5) mg/dL AST (5-31) U/L ALT (0-31) U/L Alkaline Phosphatase (39-117) U/L B-Natriuretic Peptide (<100) pg/mL Total Protein (6.5-8.0) g/dL Albumin (3.5-5.0) g/dL TSH (0.32-4.0) uIU/mL Urine Color Urine Appearance Urine pH (5.0-8.0) Ur Specific [place] (1.005-1.025) Urine Protein (NEG-TRACE) MG/DL Urine Glucose (UA) (NEG) MG/DL Urine Ketones (NEG) MG/DL Urine Blood (NEG) Urine Nitrite (NEG) Ur Leukocyte Esterase (NEG) Stool Occult Blood (NEGATIVE) Urine Opiates Screen (Not Detect) Urine Fentanyl Screen (Not Detect) Ur Barbiturates Screen (Not Detect) Ur Phencyclidine Scrn (Not Detect) Ur Amphetamines Screen (Not Detect) U Benzodiazepines Scrn (Not Detect) Urine Cocaine Screen (Not Detect) U Marijuana (THC) Screen (Not Detect) COVID-19 ([facility]ABEL) (Negative) COVID-19 Clin Com Blood Type A Positive Antibody Screen NEGATIVE Crossmatch See Detail ECG Data Attestation: I personally reviewed and interpreted this ECG as follows: ECG interpretation date: 01/19/22 ECG interpretation time: 11:58 Prior ECG tracings: available for review Interpretation: Normal sinus rhythm, ventricular rate 85 beats per minute, normal UT interval, normal QTC, no ST segment elevations or depressions. Critical Care Time Critical Care Time Critical Care Time: Yes Total Critical Care Time: 48 Attestation: I have personally provided critical care time exclusive of time spent on separately billable procedures. Time includes review of lab data, radiology results, discussion with consultants, and monitoring for potential decompensation. Intervention performed as documented. Discharge Plan Discharge Clinical Impression: Acute blood loss anemia, UGIB (upper gastrointestinal bleed), Symptomatic hypotension, SAVANNA (acute kidney injury), Transaminitis Patient Disposition: Admitted As Inpatient
[2022-01-19] MEDS: 0.9 % Sodium Chloride 1,000 ML 999 ML IVCONT ×2 (09:24→10:34)
[2022-01-19 09:42] LABS: MANUAL DIFF FLAG NO
[2022-01-19 09:43] LABS: Basophils Percent Auto 0.2 % (0-2); Eosinophils Absolute Auto 0.1 X10*3/uL (0.0-0.4); Eosinophils Percent Auto 0.7 % (0-4); Imm Gran Abs Auto 0.09 X10*3/uL (0.00-0.03); Lymphocytes Absolute Auto 0.5 X10*3/uL (1.2-4.9); Lymphocytes Percent Auto 5.8 % (20-40); Mean Corpuscular HGB Conc 31.8 g/dl (31.0-35.0); Mean Corpuscular Hemoglobin 30.2 pg (27.0-33.0); Mean Corpuscular Volume 94.9 fL (80.0-98.0); Mean Platelet Volume 12.6 fL (9.4-12.3); Monocytes Absolute Auto 0.9 X10*3/uL (0.1-1.2); Monocytes Percent Auto 10.6 % (2-11); Neutrophils Absolute Auto 7.2 x10*3/uL (2.0-8.3); Neutrophils Percent Auto 81.7 % (45-73); Platelet Count 174 X10*3/uL (160-400); Red Blood Count 2.95 X10*6/uL (4.20-5.50); Red Cell Distribution Width 16.5 % (11.0-16.0); White Blood Count 8.9 X10*3/uL (4.8-10.8)
[2022-01-19 10:01] LABS: Hemoglobin 8.9 g/dl (12.0-16.0)
[2022-01-19 10:02] LABS: Alanine Aminotransferase 189 U/L (0-31); Albumin Level 3.1 g/dL (3.5-5.0); Alkaline Phosphatase 361 U/L (39-117); Anion Gap 12 (12-20); Aspartate Amino Transferase 248 U/L (5-31); Bilirubin Direct 2.8 mg/dL (0.0-0.5); Bilirubin Total 3.7 mg/dL (0.0-1.0); Blood Urea Nitrogen 42 mg/dL (9-16); Calcium 8.2 mg/dL (8.4-10.2); Carbon Dioxide 20 mmol/L (22-29); Chloride 111 mmol/L (96-108); Creatinine Clr Calc Pharmacy 35.2; Estimated Glomerular Filt Rate 35; Glucose Random 212 mg/dL (60-115); Lactic Acid 2.4 mmol/L (0.5-2.0); Magnesium 1.8 mg/dL (1.6-2.6); Potassium 5.5 mmol/L (3.3-5.1); Sodium 137 mmol/L (135-145); Total Protein 5.4 g/dL (6.5-8.0)
[2022-01-19 10:04] LABS: COVID-19 Test Negative (Negative)
[2022-01-19 10:08] LABS: B Type Natriuretic Peptide 15 pg/mL (<100)
[2022-01-19 10:11] LABS: Appearance Urine HAZY; Color Urine YELLOW; Glucose Urine UA NEG (NEG); Leukocyte Esterase Urine NEG (NEG); Nitrite Urine NEG (NEG); Specific Gravity - Urine 1.015 (1.005-1.025); Urine Blood NEG (NEG); Urine Ketones NEG (NEG); Urine Protein TRACE MG/DL (NEG-TRACE)
[2022-01-19 10:22] LABS: TSH reflex Free T4 1.09 uIU/mL (0.32-4.0)
[2022-01-19 10:24] LABS: Amphetamine Screen Urine Not Detected (Not Detect); Barbiturates, Urine Not Detected (Not Detect); Benzodiazepines Screen Urine Not Detected (Not Detect); Cannabinoid Screen Urine Not Detected (Not Detect); Cocaine Screen Urine Not Detected (Not Detect); Fentanyl, urine Not Detected (Not Detect); Opiate Screen Urine Not Detected (Not Detect); Phencyclidine Screen Urine Not Detected (Not Detect)
[2022-01-19 10:45] LABS: Immature Retic Fraction 9.8 % (3.0-15.9); Iron 73 mcg/dL (30-160); Percent Iron Saturation 35 % (15-50); Retic HGB Equivalent 32.6 pg (30.0-35.0); Reticulocyte Percent 2.4 % (0.5-1.8); Total Iron Binding Capacity 206 mcg/dL (228-428); Unsaturated Iron Binding 133 ug/dL
[2022-01-19] MEDS: Pantoprazole Sodium 40 MG/10 ML VIAL IVPUSH ×2 (11:13→16:30)
[2022-01-19 11:34] LABS: OBS Int Ctl Valid YES; OBS1 POSITIVE (NEGATIVE)
[2022-01-19 11:40] LABS: Reflex Lactate? Lactic Acid Added
--- NOTE | 2022-01-19 13:10 | PHA.MEDREC ---
Pharmacy Consult ? Medication Reconciliation Pharmacy has completed the medication reconciliation. Spoke with patient in the ED. Patient was told yesterday to HOLD all BP meds. Patient was supposed to stop Amlodipine and olmesartan at last MD visit but still continued to take olmesartan per PCP note. Patient is also on Spironolactone.
--- NOTE | 2022-01-19 14:47 | PC.NURSE ---
blood transfusing started at 1343. transfusing paused by this communications writer to change tubing with Charge Nurse. transfusion restarted at 1355. transfusion not recording as started in the [facility]. pt denied sob/difficulty breathing. no chest pain, no itching. pt afebrile, vs at baseline.
--- NOTE | 2022-01-19 15:29 | P.HPHOSP_ITS ---
History of Present Illness Date of Service: 01/19/22 Chief Complaint: dizziness/lightheadedness 66yo F with HTN previously on amlodipine, olmesartan, and spironolactone, nephrolithiasis, H pylori gastritis s/p recent bismuth-based treatment, DARRYL on CPAP, hypothyroidism, and RLS who has been seeing her PCP, Dr Keila Garcia, over the last few weeks, due to hypotension with symptoms of worsening dizziness and lightheadedness. She has been taken off of her antihypertensives in succession and yesterday was told to stop them completely. However, her lightheadedness has worsened and this morning was unable to get off the toilet due to the severity. She called EMS and her BP was in the 80s/50s. Endorses exertional dyspnea and orthostasis. Endorses melena. Denies abdominal pain or hematochezia. She has intentionally lost 30 lb over the last 4 months through dietary measures In the ED, she arrived with BP 71/47. Hb was 8.9 compared to 13.8 on 11/06/21. FOBT was positive. Lactate was 2.4. Total bilirubin elevated to 3.7 with direct component 2.8; AST 248; ALT 189; alk phos 361. Serum creatinine elevated to 1.51 from baseline of 0.8-1.1. LFTs were previously normal 11/06/21.BP is now 88/59 after 2L of IV normal saline and 1 unit of packed red blood cells has been started. She was also given IV pantoprazole. US of the abdomen showed CBD dilation with possible intraductal echogenicities. Gallbladder was distended and mild pericholecystic fluid could not be excluded. Review of Systems Review of Systems: Yes all other systems are reviewed and are negative [facility] Medical History Acid reflux Arthritis Cancer Chronic constipation Hx of radiation therapy Hypertension, essential Hypothyroidism Lab test negative for COVID-19 virus Sleep apnea TIA (transient ischemic attack) Family History Father No problems noted. Mother HTN (hypertension) Other Substance use disorder Surgical History H/O colonoscopy History of extraction of renal calculus Hx of breast lump removal Hx of section No pertinent past surgical history Social History Household Members: Spouse Household Members Other:: Custody of 3 grandchildren, she and her are [id number], 15 and 17 Housing: House Alcohol intake: never Patient Tobacco Use Status: Never used Tobacco e-Cigarette/Vaping Use: Never Used Second Hand Smoke Exposure: No Advance Directives: Yes Advance Directives Information Provided: Yes Advance Directives on File: No service: No Current occupational status: retired Cognitive needs: No Hearing needs: No Vision needs: Yes Meds Allergies Allergy/AdvReac Type Severity Reaction Status Date / Time No Known Allergies Allergy Verified 01/18/22 11:47 Active Medications: Current Medications Acetaminophen (Acetaminophen 325 Mg Tablet) 650 mg PO Q6H PRN PRN Reason: Pain, Mild (Pain Scale 1-3) Gabapentin (Gabapentin 100 Mg Capsule) 100 mg PO BEDTIME [facility] Hydroxyzine HCl (Hydroxyzine Hcl 25 Mg Tablet) 25 mg PO BID PRN PRN Reason: itching Levothyroxine Sodium (Levothyroxine Sodium 50 Mcg Tablet) 50 mcg PO DAILY@0630 [facility] Ondansetron HCl (Ondansetron Hcl 4 Mg/2 Ml Vial) 4 mg IVPUSH Q8H PRN PRN Reason: Nausea and Vomiting Pharmacy Consult (Consult Rx Perform Med Rec) 1 each MISCELLANE ONCE PRN PRN Reason: Consult order Sodium Chloride (0.9 % Sodium Chloride Flush 3 Ml Syringe) 3 ml IVFLUSH QSHIFT [facility] Vitamin D (Cholecalciferol (Vitamin D3) 25 Mcg Tablet) 25 mcg PO DAILY [facility] Home Medications Medication Instructions Recorded Confirmed Last Taken Type aspirin 81 mg tablet,delayed 81 mg PO DAILY 04/26/20 01/19/22 Unknown History release (Adult Aspirin Regimen) cholecalciferol (vitamin D3) 25 25 mcg PO DAILY 05/15/20 01/19/22 Unknown History mcg (1,000 unit) tablet (Vitamin D3) gabapentin 100 mg capsule 100 mg PO BEDTIME 11/09/21 01/19/22 Unknown History levothyroxine 50 mcg tablet 50 mcg PO DAILY@0630 01/19/22 01/19/22 Unknown History spironolactone 50 mg tablet 50 mg PO DAILY 01/19/22 01/19/22 Unknown History Physical Exam Vital Signs and Narrative: Vital Signs: Last Vital Signs Temp 98.0 F 01/19/22 14:10 Pulse 79 01/19/22 15:14 Resp 15 01/19/22 15:14 BP 88/59 L 01/19/22 15:14 Pulse Ox 98 01/19/22 15:14 O2 Del Method 01/19/22 15:14 BMI result Body Mass Index 35.3 Gen: in no acute distress HEENT: sclera icteric, moist mucus membranes Neck: supple Lungs: clear to auscultation bilaterally Heart: regular rate and rhythm, no murmurs Abd: soft, non-tender, non-distended, obese Ext: no edema Skin: warm/well-perfused Neuro: alert and oriented x3, no focal findings Psych: appropriate affect Results Labs CBC and Chem 7: 01/19/22 09:35 01/19/22 09:35 Labs: Laboratory Results - last 24 hr 01/19/22 01/19/22 01/19/22 09:35 09:35 09:35 MCV 94.9 MCH 30.2 MCHC 31.8 RDW 16.5 H Plt Count 174 MPV 12.6 H Immature Gran % (Auto) 1.0 H Neut % (Auto) 81.7 H Lymph % (Auto) 5.8 L [place] % (Auto) 10.6 Eos % (Auto) 0.7 Baso % (Auto) 0.2 Lymph # (Auto) 0.5 L [place] # (Auto) 0.9 Eos # (Auto) 0.1 Baso # (Auto) 0.0 Abs Immat Gran (auto) 0.09 H Absolute Neuts (auto) 7.2 Absolute Nucleated RBC 0.000 Nucleated RBC % (auto) 0.0 Absolute Retic 0.070 Percent Retic 2.4 H Immature Retic Fraction 9.8 Retic Hgb Equivalent 32.6 Anion Gap 12 Estim Creat Clear Calc 35.2 Estimated GFR 35 Random Glucose 212 H Lactic Acid Calcium 8.2 L D Magnesium 1.8 Iron 73 TIBC 206 L % Saturation 35 Unsat Iron Binding 133 Total Bilirubin 3.7 H Direct Bilirubin 2.8 H AST 248 H ALT 189 H Alkaline Phosphatase 361 H D B-Natriuretic Peptide Total Protein 5.4 L D Albumin 3.1 L D TSH Urine Color Urine Appearance Urine pH Ur Specific [place] Urine Protein Urine Glucose (UA) Urine Ketones Urine Blood Urine Nitrite Ur Leukocyte Esterase Stool Occult Blood Urine Opiates Screen Urine Fentanyl Screen Ur Barbiturates Screen Ur Phencyclidine Scrn Ur Amphetamines Screen U Benzodiazepines Scrn Urine Cocaine Screen U Marijuana (THC) Screen COVID-19 (ISABEL) Negative COVID-19 Clin Com See Note Blood Type Antibody Screen Crossmatch 01/19/22 01/19/22 01/19/22 09:35 09:35 09:35 MCV MCH MCHC RDW Plt Count MPV Immature Gran % (Auto) Neut % (Auto) Lymph % (Auto) Dodge % (Auto) Eos % (Auto) Baso % (Auto) Lymph # (Auto) Dodge # (Auto) Eos # (Auto) Baso # (Auto) Abs Immat Gran (auto) Absolute Neuts (auto) Absolute Nucleated RBC Nucleated RBC % (auto) Absolute Retic Percent Retic Immature Retic Fraction Retic Hgb Equivalent Anion Gap Estim Creat Clear Calc Estimated GFR Random Glucose Lactic Acid 2.4 H* Calcium Magnesium Iron TIBC % Saturation Unsat Iron Binding Total Bilirubin Direct Bilirubin AST ALT Alkaline Phosphatase B-Natriuretic Peptide 15 Total Protein Albumin TSH 1.09 Urine Color Urine Appearance Urine pH Ur Specific [place] Urine Protein Urine Glucose (UA) Urine Ketones Urine Blood Urine Nitrite Ur Leukocyte Esterase Stool Occult Blood Urine Opiates Screen Urine Fentanyl Screen Ur Barbiturates Screen Ur Phencyclidine Scrn Ur Amphetamines Screen U Benzodiazepines Scrn Urine Cocaine Screen U Marijuana (THC) Screen COVID-19 (ISABEL) COVID-19 Clin Com Blood Type Antibody Screen Crossmatch 01/19/22 01/19/22 01/19/22 09:59 09:59 11:27 MCV MCH MCHC RDW Plt Count MPV Immature Gran % (Auto) Neut % (Auto) Lymph % (Auto) [place] % (Auto) Eos % (Auto) Baso % (Auto) Lymph # (Auto) Dodge # (Auto) Eos # (Auto) Baso # (Auto) Abs Immat Gran (auto) Absolute Neuts (auto) Absolute Nucleated RBC Nucleated RBC % (auto) Absolute Retic Percent Retic Immature Retic Fraction Retic Hgb Equivalent Anion Gap Estim Creat Clear Calc Estimated GFR Random Glucose Lactic Acid Calcium Magnesium Iron TIBC % Saturation Unsat Iron Binding Total Bilirubin Direct Bilirubin AST ALT Alkaline Phosphatase B-Natriuretic Peptide Total Protein Albumin TSH Urine Color YELLOW Urine Appearance HAZY Urine pH 6.0 Ur Specific [place] 1.015 Urine Protein TRACE Urine Glucose (UA) NEG Urine Ketones NEG Urine Blood NEG Urine Nitrite NEG Ur Leukocyte Esterase NEG Stool Occult Blood POSITIVE Urine Opiates Screen Not Detected Urine Fentanyl Screen Not Detected Ur Barbiturates Screen Not Detected Ur Phencyclidine Scrn Not Detected Ur Amphetamines Screen Not Detected U Benzodiazepines Scrn Not Detected Urine Cocaine Screen Not Detected U Marijuana (THC) Screen Not Detected COVID-19 (ISABEL) COVID-19 Clin Com Blood Type Antibody Screen Crossmatch 01/19/22 11:27 MCV MCH MCHC RDW Plt Count MPV Immature Gran % (Auto) Neut % (Auto) Lymph % (Auto) [place] % (Auto) Eos % (Auto) Baso % (Auto) Lymph # (Auto) Dodge # (Auto) Eos # (Auto) Baso # (Auto) Abs Immat Gran (auto) Absolute Neuts (auto) Absolute Nucleated RBC Nucleated RBC % (auto) Absolute Retic Percent Retic Immature Retic Fraction Retic Hgb Equivalent Anion Gap Estim Creat Clear Calc Estimated GFR Random Glucose Lactic Acid Calcium Magnesium Iron TIBC % Saturation Unsat Iron Binding Total Bilirubin Direct Bilirubin AST ALT Alkaline Phosphatase B-Natriuretic Peptide Total Protein Albumin TSH Urine Color Urine Appearance Urine pH Ur Specific [place] Urine Protein Urine Glucose (UA) Urine Ketones Urine Blood Urine Nitrite Ur Leukocyte Esterase Stool Occult Blood Urine Opiates Screen Urine Fentanyl Screen Ur Barbiturates Screen Ur Phencyclidine Scrn Ur Amphetamines Screen U Benzodiazepines Scrn Urine Cocaine Screen U Marijuana (THC) Screen COVID-19 (ISABEL) COVID-19 Clin Com Blood Type A Positive Antibody Screen NEGATIVE Crossmatch See Detail Imaging Radiologist's Impressions: Impressions Chest X-Ray 01/19/22 09:45 IMPRESSION: No evidence for acute disease in the chest. Abdomen Ultrasound 01/19/22 11:18 IMPRESSION: The common duct is dilated here with possible echogenicities within the duct. The duct is increasing in caliber from previous ultrasound. There is no convincing evidence for intrahepatic ductal dilatation at this time. The gallbladder appears distended. No stone is seen but I cannot exclude some mild pericholecystic fluid. The pancreas is not adequately visualized. There is no free fluid. Consider MR/MRCP to fully evaluate Assessment and Plan (1) Acute blood loss anemia: Status: Acute (2) UGIB (upper gastrointestinal bleed): Status: Acute (3) Symptomatic hypotension: Status: Acute Plan 66yo F with HTN nephrolithiasis, H pylori gastritis s/p recent bismuth-based treatment, DARRYL on CPAP, hypothyroidism, and RLS who has had symptomatic hypotension over the last few weeks and has serially discontinued her 3 antihyp ertensives. She presents with hypotension, anemia, guaiac-positive stool, acute liver injury with mixed cholestatic/hepatocellular pattern, and SAVANNA. # hypotension due to acute blood loss anemia due to UGIB - admit to IMC, transfuse 1u pRBCs, continue IV fluid resuscitation, GI consultation, IV PPI, clear liquid diet # cholestatic/hepatocellular liver injury # dilated CBD - GI consultation, MRCP to evaluate biliary tree and gallbladder # SAVANNA - prerenal; fluid-resuscitate as above, hold ARB, avoid nephrotoxins, and recheck BMP in AM # HTN - holding all 3 antihypertensives [olmesartan, spironolactone, amlodipine] # hypothyroidism - LT4 # DARRYL - CPAP at night # RLS - gabapentin VTE prophylaxis: SCDs, no heparin given GI bleed code status: full I anticipate that the patient will stay at least 2 midnights in hospital due to the above reasons. It is neither reasonable nor safe to care for them in a less acute setting. Quality Stroke Does the patient have a stroke diagnosis?: No VTE Prior VTE?: No VTE Risk Level:: Medical - moderate - high VTE Device Contraindication: N/A - Device Ordered VTE Drug Contraindication: Treatment Not Indicated
--- NOTE | 2022-01-19 15:31 | PC.NURSE ---
Blood transfusion completed. Pt taken to MRI by BACILIO Staton. vss, pt denied any symptoms of allergic reaction. no signs observed.
[2022-01-19] MEDS: Sodium Zirconium Cyclosilicate 10 GM POWD.PACK PO (16:30)
[2022-01-19] MEDS: 0.9 % Sodium Chloride Flush 3 ML SYRINGE IVFLUSH (16:30)
--- NOTE | 2022-01-19 16:34 | PC.NURSE ---
pt to MRI, tolerated well, vital signs stable throughout. medicated per provider order, pt remains hypotensive, all other vss.
--- NOTE | 2022-01-19 16:49 | P.CNGI_ITS ---
History of Present Illness Data of Consult Service Date: 01/19/22 Requesting physician: Ector Dowell Primary Care Provider: Unknown Physician HPI Reason for consult: anemia 66yo F with HTN, nephrolithiasis, H pylori gastritis s/p recent bismuth-based treatment, DARRYL on CPAP, hypothyroidism, and RLS who I am seeing for assessment for abn LFT and anemia. PAtient intially presented with inceasing lightheadedness, weakness and malaise for last few months. SHe also noted blackish looking stools for last several weeks since taking bismuth based treatment for h pylori. She had noted increas ing dyspnea but no chest pain, but has noted new sensation of heartburn and diarrheal stools for last few days. Denies abdominal pain or dysphagia. She also noted weight loss of 40# last several months which she believes is intentional, with poor appetite. Of note PCP has been weaning her off HTN meds due to her lower bP readings LAst colonoscopy 2019--small tubular adenomas removed, no masses, good prep LABS: Hb was 8.9 compared to 13.8 on 11/06/21.? FOBT was positive.? Lactate was 2.4.? To shila bilirubin elevated to 3.7 with direct component 2.8; AST 248; ALT 189; alk phos 361.? Serum creatinine elevated to 1.51 from baseline of 0.8-1.1. ? LFTs were previously normal 11/06/21 Imaging: US of the abdomen showed CBD dilation with possible intraductal echogenicities.? Gallbladder was distended and mild pericholecystic fluid could not be excluded. Prior US 11/25--normal CBD< no stones or sludge. MRCP pending Review of Systems Review of Systems: Constitutional : + Weight loss, No Fever, No Chills ENT/Mouth : No sore throat, No Rhinorrhea Eyes: No Swelling, No Redness Cardiovascular : No Chest Pain, No SOB, No Edema Respiratory : No Cough, No Sputum, No Wheezing Gastrointestinal : see HPI Genitourinary : NO Dysuria, No Urinary Frequency, No Hematuria, No Urgency Musculoskeletal : No joint pain, No Myalgias, No Joint Swelling Skin : No Skin Lesions, No rash Neuro : + Weakness, No Numbness, +Dizziness, No Headache Psych : No Anxiety/Panic, No Depression Heme/Lymph: No Bruising, No Lymphadenopathy Endocrine : No Polyuria, No Polydipsia All other systems reviewed and are negative. [facility] Past Medical History Medical History Acid reflux Arthritis Cancer Chronic constipation Hx of radiation therapy Hypertension, essential Hypothyroidism Lab test negative for COVID-19 virus Sleep apnea TIA (transient ischemic attack) Family History Family History Father No problems noted. Mother HTN (hypertension) Other Substance use disorder Surgical History Surgical History H/O colonoscopy History of extraction of renal calculus Hx of breast lump removal Hx of section No pertinent past surgical history Social History Social History Household Members: Spouse Household Members Other:: Custody of 3 grandchildren, she and her are [id number], 15 and 17 Housing: House Alcohol intake: never Patient Tobacco Use Status: Never used Tobacco e-Cigarette/Vaping Use: Never Used Second Hand Smoke Exposure: No Advance Directives: Yes Advance Directives Information Provided: Yes Advance Directives on File: No service: No Current occupational status: retired Cognitive needs: No Hearing needs: No Vision needs: Yes Meds Allergies Allergy/AdvReac Type Severity Reaction Status Date / Time No Known Allergies Allergy Verified 01/18/22 11:47 Active Medications: Current Medications Acetaminophen (Acetaminophen 325 Mg Tablet) 650 mg PO Q6H PRN PRN Reason: Pain, Mild (Pain Scale 1-3) Gabapentin (Gabapentin 100 Mg Capsule) 100 mg PO BEDTIME [facility] Hydroxyzine HCl (Hydroxyzine Hcl 25 Mg Tablet) 25 mg PO BID PRN PRN Reason: itching Lactated Ringer's (Lr) 1,000 mls @ 125 mls/hr IVCONT .Q8H LAUREN Levothyroxine Sodium (Levothyroxine Sodium 50 Mcg Tablet) 50 mcg PO DAILY@0630 [facility] Ondansetron HCl (Ondansetron Hcl 4 Mg/2 Ml Vial) 4 mg IVPUSH Q8H PRN PRN Reason: Nausea and Vomiting Pantoprazole Sodium (Pantoprazole Sodium 40 Mg/10 Ml Vial) 40 mg IVPUSH BID@0630,1630 [facility] Last Admin: 07/16/22 16:30 Dose: 40 mg Pharmacy Consult (Consult Rx Perform Med Rec) 1 each MISCELLANE ONCE PRN PRN Reason: Consult order Sodium Chloride (0.9 % Sodium Chloride Flush 3 Ml Syringe) 3 ml IVFLUSH QSHIFT [facility] Last Admin: 01/19/22 16:30 Dose: 3 ml Vitamin D (Cholecalciferol (Vitamin D3) 25 Mcg Tablet) 25 mcg PO DAILY [facility] Home Medications Medication Instructions Recorded Confirmed Last Taken Type aspirin 81 mg tablet,delayed 81 mg PO DAILY 04/26/20 01/19/22 Unknown History release (Adult Aspirin Regimen) cholecalciferol (vitamin D3) 25 25 mcg PO DAILY 05/15/20 01/19/22 Unknown History mcg (1,000 unit) tablet (Vitamin D3) gabapentin 100 mg capsule 100 mg PO BEDTIME 11/09/21 01/19/22 Unknown History levothyroxine 50 mcg tablet 50 mcg PO DAILY@0630 01/19/22 01/19/22 Unknown History spironolactone 50 mg tablet 50 mg PO DAILY 01/19/22 01/19/22 Unknown History Physical Exam Vital Signs: Vital Signs: Last Vital Signs Temp 98.0 F 01/19/22 14:10 Pulse 74 01/19/22 16:23 Resp 16 01/19/22 16:23 BP 109/54 L 01/19/22 16:23 Pulse Ox 98 01/19/22 16:23 O2 Del Method 01/19/22 16:23 BMI result Body Mass Index 35.3 EXAM: GENERAL: The patient is overweight VITAL SIGNS:see workflow HEENT: Nonicteric sclerae, PERRLA, EOMI. Oropharynx clear. Moist mucous membranes. Conjunctivae appear well perfused. No thyroid mass. CHEST: Chest wall is nontender. HEART: Regular rate and rhythm with soft systolic murmur at sternal edge LUNGS: Clear to auscultation bilaterally. ABDOMEN: Soft, positive bowel sounds, nontender, no organomegaly.no flank tenderness SKIN: No rash, no excessive bruising, petechiae, or purpura. NEUROLOGIC: Cranial nerves II-XII intact without motor/sensory deficit. psych- nml affect Results Labs CBC & Chem 7: 01/19/22 09:35 01/19/22 09:35 Labs: Short CBC 01/19/22 Range/Units 09:35 WBC 8.9 (4.8-10.8) X10*3/uL Hgb 8.9 L D (12.0-16.0) g/dl Hct 28.0 L D (37.0-47.0) % Plt Count 174 (160-400) X10*3/uL BMP 01/19/22 09:35 Sodium 137 Potassium 5.5 H Chloride 111 H Carbon Dioxide 20 L BUN 42 H Creatinine 1.51 H Calcium 8.2 L D Liver Function 01/19/22 Range/Units 09:35 Total Bilirubin 3.7 H (0.0-1.0) mg/dL Direct Bilirubin 2.8 H (0.0-0.5) mg/dL AST 248 H (5-31) U/L ALT 189 H (0-31) U/L Alkaline Phosphatase 361 H D (39-117) U/L Albumin 3.1 L D (3.5-5.0) g/dL Urine 01/19/22 Range/Units 09:59 Urine Color YELLOW Urine Appearance HAZY Urine pH 6.0 (5.0-8.0) Ur Specific [place] 1.015 (1.005-1.025) Urine Protein TRACE (NEG-TRACE) MG/DL Urine Glucose (UA) NEG (NEG) MG/DL Microbiology Microbiology Results: Microbiology 01/19/22 09:35 Blood - Venous Blood Culture - Preliminary ECG Attestation: I personally reviewed and interpreted this ECG as follows: (sinus rhythm) Imaging MRI - abdomen: Attestation: I personally reviewed and interpreted this imaging study as follows: My impression: dilated CBD, smooth taper into the distal CBD, no mass seen, possible stone on axial T2 image. PD looks normal Assessment and Plan (1) Acute blood loss anemia: Status: Acute (2) Transaminitis: Status: Acute Plan 1/ Acute or subacute blood loss anemia, with weight loss, poor appetite and new heartburn concern would be neoplasia, ddx: peptic ulcer, esophagitis, gastritis, AVM. With new CBD dilation other ddx: hemobilia, chris ampullary mass with bleeding or Cholangio ca 2/ Transaminitis with dilated CBD, could be neoplasia, Choledocholithiasis, chris ampullary lesion, biliary stricture, component of ischemic hepatopathy from low BP PLAN: 1/ can alow clears, cnt with PPI 2/ resuscitate with fluids, PRBC as needed to keep HGB around 9 g/dl and improve BP 3/ EGD on Friday, may need ERCP as well depending on official MRCP report Procedures Date of Service Date of Service: 01/19/22
[2022-01-19] MEDS: Lactated Ringers 1,000 ML 125 ML IVCONT (16:57)
[2022-01-19 17:06] LABS: INTERNATIONAL NORM RATIO 1.1 (0.9-1.1); Prothrombin Time 12.4 SEC (10.0-13.1)
[2022-01-19 17:09] LABS: ~Lactic Acid-LAB USE ONLY 1.4 mmol/L (0.5-2.0)
--- NOTE | 2022-01-19 18:38 | PC.NURSE ---
Addendum entered by Carter Ortega 01/19/22 18:41: provider notified. Original Note: pt assissted to bathroom - reported needing to have a bowel movement, large amount of zeny blood in toilet after, pt reporting increased dizziness, sob. pt back to bed, vss - remains hypotensive.
[2022-01-19 19:34] LABS: Hematocrit 25.9 % (37.0-47.0); Hemoglobin 8.3 g/dl (12.0-16.0)
[2022-01-19] MEDS: iohexoL 350 MG/ML 100 ML INFUS..BTL IV (19:36)
[2022-01-19 19:58] LABS: Anion Gap 12 (12-20); Blood Urea Nitrogen 36 mg/dL (9-16); Calcium 7.4 mg/dL (8.4-10.2); Carbon Dioxide 17 mmol/L (22-29); Chloride 112 mmol/L (96-108); Creatinine Clr Calc Pharmacy 51.2; Estimated Glomerular Filt Rate 53; Glucose Random 148 mg/dL (60-115); Potassium 4.7 mmol/L (3.3-5.1); Sodium 136 mmol/L (135-145)
--- NOTE | 2022-01-19 20:17 | PC.NURSE ---
2nd unit of RBC started, vss stable @ 15 minute recheck - pt remains hypotensive.
--- NOTE | 2022-01-19 20:36 | PM.EVENT ---
Event Note Date of Service: 01/19/22 Event Note: Called By Dr Dowell re: recurrent bleeding, CT report and MRCP reports reviewed concern for duodenal mass or ulceration, will do EGD tomorrow around 9 AM, keep on PPi meantime and NPO midnight.
[2022-01-19] MEDS: Octreotide Acetate 100 MCG/ML AMPUL 50 MCG IVPUSH (23:21)
[2022-01-19] MEDS: Octreotide Acetate 500 MCG in 0.9 % Sodium Chloride 500 ML 50.1 MCG IVCONT (23:24)
[2022-01-19] MEDS: Gabapentin 100 MG CAPSULE PO (23:29)
[2022-01-20] VITALS (13 sets, daily range): BP systolic 89–120; BP diastolic 40–61; PULSE 70–98; RESP 12–20; TEMP 36.8–37.3; O2SAT 94–99
--- NOTE | 2022-01-20 02:32 | PC.NURSE ---
PATIENT WAS ASSISTED TO BEDSIDE COMMODE ,PATIENT PASS LARGE AMOUNT OF BLOOD ,RN AWARE .
[2022-01-20] MEDS: Lactated Ringers 1,000 ML 125 ML IVCONT ×4 (04:02→23:06)
--- NOTE | 2022-01-20 05:02 | PC.NURSE ---
Addendum entered by Shahab Saeed RN 01/20/22 05:04: NSR HR 90'S ... NO ECTOPY Original Note: TO OVERFLOW BED 2 FROM MAIN ED DEPT..ALERT..ORIENTED X3..RESPIRATIONS EASY ON ROOM AIR...LR 125 CC/HR AND OCTREOTIDE 50 MCG/HR...PROTONIX BID PER SEP...OOB TO BEDSIDE COMMODE X3 AND PASSED BLOODY STOOLS..DENIES DIZZYNESS...DENIES NAUSEA...NPO FOR ? UPPER ENDOSCOPY TODAY..RESTFUL
[2022-01-20] MEDS: Pantoprazole Sodium 40 MG/10 ML VIAL IVPUSH ×2 (05:49→15:13)
[2022-01-20 07:36] LABS: Hematocrit 27.4 % (37.0-47.0); Hemoglobin 9.1 g/dl (12.0-16.0); Mean Corpuscular HGB Conc 33.2 g/dl (31.0-35.0); Mean Corpuscular Hemoglobin 29.5 pg (27.0-33.0); Red Blood Count 3.08 X10*6/uL (4.20-5.50); Red Cell Distribution Width 18.2 % (11.0-16.0); White Blood Count 8.3 X10*3/uL (4.8-10.8)
--- NOTE | 2022-01-20 07:41 | PC.NURSE ---
OCTERIOTITE ACETATE NOT LOADED IN OVERFLOW PYXIS. PATEL IN PHARMACY AWARE, WILL MIX AND BRING TO UNIT.
--- NOTE | 2022-01-20 07:43 | PC.NURSE ---
OCTREOTIDE ACETATE NOT LOADED IN OVERFLOW PYXIS. PATEL IN PHARMACY AWARE, WILL MIX AND BRING TO UNIT.
[2022-01-20 07:56] LABS: Alanine Aminotransferase 141 U/L (0-31); Albumin Level 2.6 g/dL (3.5-5.0); Alkaline Phosphatase 290 U/L (39-117); Anion Gap 12 (12-20); Aspartate Amino Transferase 140 U/L (5-31); Bilirubin Direct 2.4 mg/dL (0.0-0.5); Bilirubin Total 3.5 mg/dL (0.0-1.0); Blood Urea Nitrogen 42 mg/dL (9-16); Calcium 7.7 mg/dL (8.4-10.2); Carbon Dioxide 18 mmol/L (22-29); Chloride 115 mmol/L (96-108); Creatinine Clr Calc Pharmacy 47.1; Estimated Glomerular Filt Rate 48; Glucose Random 189 mg/dL (60-115); Potassium 5.1 mmol/L (3.3-5.1); Sodium 140 mmol/L (135-145); Total Protein 4.5 g/dL (6.5-8.0)
[2022-01-20 07:58] LABS: Platelet Count 126 X10*3/uL (160-400)
--- NOTE | 2022-01-20 09:20 | P.CONAN_ITS ---
[facility] Active Problems Active Problems: All Active Problems (Updated 01/19/22 @ 10:58 by FIORDALIZA Heath) Acute blood loss anemia (Acute) UGIB (upper gastrointestinal bleed) (Acute) Symptomatic hypotension (Acute) SAVANNA (acute kidney injury) (Acute) Transaminitis (Acute) Abnormal EKG (Acute) Pruritus (Acute) Dizziness (Acute) Hypotension (Acute) Itching (Acute) Abdominal hernia (Acute) Chronic constipation (Acute) Acid reflux (Acute) Hospital discharge follow-up (Acute) Right kidney stone (Acute) Epigastric pain (Acute) Right upper quadrant pain (Acute) Elevated blood pressure reading (Acute) Obesity due to excess calories (Acute) Encounter for general adult medical examination with abnormal findings (Acute) Renal calculi (Acute) Memory change (Acute) Obstructive sleep apnea on CPAP (Acute) Other specified hypothyroidism (Acute) Hypertension, essential (Acute) Tubular adenoma of colon (Acute) Hypertension, essential (Acute) Hypothyroidism (Acute) Past Medical History Medical History Acid reflux Arthritis Cancer Chronic constipation Hx of radiation therapy Hypertension, essential Hypothyroidism Lab test negative for COVID-19 virus Sleep apnea TIA (transient ischemic attack) Family History Family History Father No problems noted. Mother HTN (hypertension) Other Substance use disorder Family history of problems with anesthesia: No Surgical History Surgical History H/O colonoscopy History of extraction of renal calculus Hx of breast lump removal Hx of section No pertinent past surgical history History of Problems with Anesthesia: No Social History Social History Household Members: Spouse Household Members Other:: Custody of 3 grandchildren, she and her are [id number], 15 and 17 Housing: House Alcohol intake: never Patient Tobacco Use Status: Never used Tobacco e-Cigarette/Vaping Use: Never Used Second Hand Smoke Exposure: No Use of substances other than those prescribed or required for medical reasons: No Advance Directives: Yes Advance Directives Information Provided: Yes Advance Directives on File: No service: No Current occupational status: retired Cognitive needs: No Hearing needs: No Vision needs: Yes Meds Allergies Allergy/AdvReac Type Severity Reaction Status Date / Time No Known Allergies Allergy Verified 01/18/22 11:47 Active Medications: Current Medications Acetaminophen (Acetaminophen 325 Mg Tablet) 650 mg PO Q6H PRN PRN Reason: Pain, Mild (Pain Scale 1-3) Gabapentin (Gabapentin 100 Mg Capsule) 100 mg PO BEDTIME [facility] Last Admin: 01/19/22 23:29 Dose: 100 mg Hydroxyzine HCl (Hydroxyzine Hcl 25 Mg Tablet) 25 mg PO BID PRN PRN Reason: itching Lactated Ringer's (Lr) 1,000 mls @ 125 mls/hr IVCONT .Q8H [facility] Last Admin: 01/20/22 08:51 Dose: 125 mls/hr Octreotide Acetate 500 mcg/ (Sodium Chloride) 501 mls @ 50.1 mls/hr IVCONT .Q10H [facility] Last Admin: 01/20/22 09:15 Dose: Not Given Levothyroxine Sodium (Levothyroxine Sodium 50 Mcg Tablet) 50 mcg PO DAILY@0630 [facility] Last Admin: 01/20/22 05:45 Dose: Not Given Ondansetron HCl (Ondansetron Hcl 4 Mg/2 Ml Vial) 4 mg IVPUSH Q8H PRN PRN Reason: Nausea and Vomiting Pantoprazole Sodium (Pantoprazole Sodium 40 Mg/10 Ml Vial) 40 mg IVPUSH BID@0630,1630 [facility] Last Admin: 01/20/22 05:49 Dose: 40 mg Pharmacy Consult (Consult Rx Perform Med Rec) 1 each MISCELLANE ONCE PRN PRN Reason: Consult order Sodium Chloride (0.9 % Sodium Chloride Flush 3 Ml Syringe) 3 ml IVFLUSH QSHIFT [facility] Last Admin: 01/20/22 07:19 Dose: Not Given Vitamin D (Cholecalciferol (Vitamin D3) 25 Mcg Tablet) 25 mcg PO DAILY [facility] Home Medications Medication Instructions Recorded Confirmed Last Taken Type aspirin 81 mg tablet,delayed 81 mg PO DAILY 04/26/20 01/19/22 Unknown History release (Adult Aspirin Regimen) cholecalciferol (vitamin D3) 25 25 mcg PO DAILY 05/15/20 01/19/22 Unknown History mcg (1,000 unit) tablet (Vitamin D3) gabapentin 100 mg capsule 100 mg PO BEDTIME 11/09/21 01/19/22 Unknown History levothyroxine 50 mcg tablet 50 mcg PO DAILY@0630 01/19/22 01/19/22 Unknown History spironolactone 50 mg tablet 50 mg PO DAILY 01/19/22 01/19/22 Unknown History Exam Exam Date and Time: January 20, 2022 0920 Height,Weight and Vital Signs: Height 5 ft Weight 82.1 kg Last Vital Signs Temp 99.2 F 01/20/22 02:24 Pulse 75 01/20/22 07:29 Resp 18 01/20/22 07:29 BP 106/50 L 01/20/22 07:29 Pulse Ox 97 01/20/22 07:29 O2 Del Method 01/20/22 07:29 Pertinent Lab Results Pertinent Lab Results: Laboratory Tests 01/19/22 01/19/22 01/19/22 09:35 09:35 09:35 WBC 8.9 RBC 2.95 L D Hgb 8.9 L D Hct 28.0 L D MCV 94.9 MCH 30.2 MCHC 31.8 RDW 16.5 H Plt Count 174 MPV 12.6 H Immature Gran % (Auto) 1.0 H Neut % (Auto) 81.7 H Lymph % (Auto) 5.8 L Hawkins % (Auto) 10.6 Eos % (Auto) 0.7 Baso % (Auto) 0.2 Lymph # (Auto) 0.5 L Hawkins # (Auto) 0.9 Eos # (Auto) 0.1 Baso # (Auto) 0.0 Abs Immat Gran (auto) 0.09 H Absolute Neuts (auto) 7.2 Absolute Nucleated RBC 0.000 Nucleated RBC % (auto) 0.0 Absolute Retic 0.070 Percent Retic 2.4 H Immature Retic Fraction 9.8 Retic Hgb Equivalent 32.6 PT INR Sodium 137 Potassium 5.5 H Chloride 111 H Carbon Dioxide 20 L Anion Gap 12 BUN 42 H Creatinine 1.51 H Estim Creat Clear Calc 35.2 Estimated GFR 35 Random Glucose 212 H Lactic Acid Lactic Acid F/U @ 2Hr Calcium 8.2 L D Magnesium 1.8 Iron 73 TIBC 206 L % Saturation 35 Unsat Iron Binding 133 Total Bilirubin 3.7 H Direct Bilirubin 2.8 H AST 248 H ALT 189 H Alkaline Phosphatase 361 H D B-Natriuretic Peptide Total Protein 5.4 L D Albumin 3.1 L D TSH Urine Color Urine Appearance Urine pH Ur Specific [place] Urine Protein Urine Glucose (UA) Urine Ketones Urine Blood Urine Nitrite Ur Leukocyte Esterase Stool Occult Blood Urine Opiates Screen Urine Fentanyl Screen Ur Barbiturates Screen Ur Phencyclidine Scrn Ur Amphetamines Screen U Benzodiazepines Scrn Urine Cocaine Screen U Marijuana (THC) Screen COVID-19 (ISABEL) Negative COVID-19 Clin Com See Note Blood Type Antibody Screen Crossmatch 01/19/22 01/19/22 01/19/22 09:35 09:35 09:35 WBC RBC Hgb Hct MCV MCH MCHC RDW Plt Count MPV Immature Gran % (Auto) Neut % (Auto) Lymph % (Auto) Hawkins % (Auto) Eos % (Auto) Baso % (Auto) Lymph # (Auto) Hawkins # (Auto) Eos # (Auto) Baso # (Auto) Abs Immat Gran (auto) Absolute Neuts (auto) Absolute Nucleated RBC Nucleated RBC % (auto) Absolute Retic Percent Retic Immature Retic Fraction Retic Hgb Equivalent PT INR Sodium Potassium Chloride Carbon Dioxide Anion Gap BUN Creatinine Estim Creat Clear Calc Estimated GFR Random Glucose Lactic Acid 2.4 H* Lactic Acid F/U @ 2Hr Calcium Magnesium Iron TIBC % Saturation Unsat Iron Binding Total Bilirubin Direct Bilirubin AST ALT Alkaline Phosphatase B-Natriuretic Peptide 15 Total Protein Albumin TSH 1.09 Urine Color Urine Appearance Urine pH Ur Specific [place] Urine Protein Urine Glucose (UA) Urine Ketones Urine Blood Urine Nitrite Ur Leukocyte Esterase Stool Occult Blood Urine Opiates Screen Urine Fentanyl Screen Ur Barbiturates Screen Ur Phencyclidine Scrn Ur Amphetamines Screen U Benzodiazepines Scrn Urine Cocaine Screen U Marijuana (THC) Screen COVID-19 (ISABEL) COVID-19 Clin Com Blood Type Antibody Screen Crossmatch 01/19/22 01/19/22 01/19/22 09:59 09:59 11:27 WBC RBC Hgb Hct MCV MCH MCHC RDW Plt Count MPV Immature Gran % (Auto) Neut % (Auto) Lymph % (Auto) Hawkins % (Auto) Eos % (Auto) Baso % (Auto) Lymph # (Auto) Hawkins # (Auto) Eos # (Auto) Baso # (Auto) Abs Immat Gran (auto) Absolute Neuts (auto) Absolute Nucleated RBC Nucleated RBC % (auto) Absolute Retic Percent Retic Immature Retic Fraction Retic Hgb Equivalent PT INR Sodium Potassium Chloride Carbon Dioxide Anion Gap BUN Creatinine Estim Creat Clear Calc Estimated GFR Random Glucose Lactic Acid Lactic Acid F/U @ 2Hr Calcium Magnesium Iron TIBC % Saturation Unsat Iron Binding Total Bilirubin Direct Bilirubin AST ALT Alkaline Phosphatase B-Natriuretic Peptide Total Protein Albumin TSH Urine Color YELLOW Urine Appearance HAZY Urine pH 6.0 Ur Specific [place] 1.015 Urine Protein TRACE Urine Glucose (UA) NEG Urine Ketones NEG Urine Blood NEG Urine Nitrite NEG Ur Leukocyte Esterase NEG Stool Occult Blood POSITIVE Urine Opiates Screen Not Detected Urine Fentanyl Screen Not Detected Ur Barbiturates Screen Not Detected Ur Phencyclidine Scrn Not Detected Ur Amphetamines Screen Not Detected U Benzodiazepines Scrn Not Detected Urine Cocaine Screen Not Detected U Marijuana (THC) Screen Not Detected COVID-19 (ISABEL) COVID-19 Recovr Com Blood Type Antibody Screen Crossmatch 01/19/22 01/19/22 01/19/22 11:27 16:52 16:52 WBC RBC Hgb Hct MCV MCH MCHC RDW Plt Count MPV Immature Gran % (Auto) Neut % (Auto) Lymph % (Auto) Hawkins % (Auto) Eos % (Auto) Baso % (Auto) Lymph # (Auto) Hawkins # (Auto) Eos # (Auto) Baso # (Auto) Abs Immat Gran (auto) Absolute Neuts (auto) Absolute Nucleated RBC Nucleated RBC % (auto) Absolute Retic Percent Retic Immature Retic Fraction Retic Hgb Equivalent PT 12.4 INR 1.1 Sodium Potassium Chloride Carbon Dioxide Anion Gap BUN Creatinine Estim Creat Clear Calc Estimated GFR Random Glucose Lactic Acid Lactic Acid F/U @ 2Hr 1.4 Calcium Magnesium Iron TIBC % Saturation Unsat Iron Binding Total Bilirubin Direct Bilirubin AST ALT Alkaline Phosphatase B-Natriuretic Peptide Total Protein Albumin TSH Urine Color Urine Appearance Urine pH Ur Specific [place] Urine Protein Urine Glucose (UA) Urine Ketones Urine Blood Urine Nitrite Ur Leukocyte Esterase Stool Occult Blood Urine Opiates Screen Urine Fentanyl Screen Ur Barbiturates Screen Ur Phencyclidine Scrn Ur Amphetamines Screen U Benzodiazepines Scrn Urine Cocaine Screen U Marijuana (THC) Screen COVID-19 (ISABEL) COVID-19 Recovr Com Blood Type A Positive Antibody Screen NEGATIVE Crossmatch See Detail 01/19/22 01/19/22 01/20/22 19:26 19:26 07:09 WBC 8.3 RBC 3.08 L Hgb 8.3 L 9.1 L Hct 25.9 L 27.4 L MCV 89.0 D MCH 29.5 MCHC 33.2 RDW 18.2 H Plt Count 126 L D MPV Not Reportable Immature Gran % (Auto) Neut % (Auto) Lymph % (Auto) Hawkins % (Auto) Eos % (Auto) Baso % (Auto) Lymph # (Auto) Hawkins # (Auto) Eos # (Auto) Baso # (Auto) Abs Immat Gran (auto) Absolute Neuts (auto) Absolute Nucleated RBC 0.000 Nucleated RBC % (auto) 0.0 Absolute Retic Percent Retic Immature Retic Fraction Retic Hgb Equivalent PT INR Sodium 136 Potassium 4.7 Chloride 112 H Carbon Dioxide 17 L Anion Gap 12 BUN 36 H Creatinine 1.04 Estim Creat Clear Calc 51.2 Estimated GFR 53 Random Glucose 148 H Lactic Acid Lactic Acid F/U @ 2Hr Calcium 7.4 L D Magnesium Iron TIBC % Saturation Unsat Iron Binding Total Bilirubin Direct Bilirubin AST ALT Alkaline Phosphatase B-Natriuretic Peptide Total Protein Albumin TSH Urine Color Urine Appearance Urine pH Ur Specific [place] Urine Protein Urine Glucose (UA) Urine Ketones Urine Blood Urine Nitrite Ur Leukocyte Esterase Stool Occult Blood Urine Opiates Screen Urine Fentanyl Screen Ur Barbiturates Screen Ur Phencyclidine Scrn Ur Amphetamines Screen U Benzodiazepines Scrn Urine Cocaine Screen U Marijuana (THC) Screen COVID-19 (ISABEL) COVID-19 Clin Com Blood Type Antibody Screen Crossmatch 01/20/22 07:10 WBC RBC Hgb Hct MCV MCH MCHC RDW Plt Count MPV Immature Gran % (Auto) Neut % (Auto) Lymph % (Auto) [place] % (Auto) Eos % (Auto) Baso % (Auto) Lymph # (Auto) [place] # (Auto) Eos # (Auto) Baso # (Auto) Abs Immat Gran (auto) Absolute Neuts (auto) Absolute Nucleated RBC Nucleated RBC % (auto) Absolute Retic Percent Retic Immature Retic Fraction Retic Hgb Equivalent PT INR Sodium 140 Potassium 5.1 Chloride 115 H Carbon Dioxide 18 L Anion Gap 12 BUN 42 H Creatinine 1.13 Estim Creat Clear Calc 47.1 Estimated GFR 48 Random Glucose 189 H Lactic Acid Lactic Acid F/U @ 2Hr Calcium 7.7 L Magnesium Iron TIBC % Saturation Unsat Iron Binding Total Bilirubin 3.5 H Direct Bilirubin 2.4 H AST 140 H ALT 141 H Alkaline Phosphatase 290 H B-Natriuretic Peptide Total Protein 4.5 L Albumin 2.6 L TSH Urine Color Urine Appearance Urine pH Ur Specific [place] Urine Protein Urine Glucose (UA) Urine Ketones Urine Blood Urine Nitrite Ur Leukocyte Esterase Stool Occult Blood Urine Opiates Screen Urine Fentanyl Screen Ur Barbiturates Screen Ur Phencyclidine Scrn Ur Amphetamines Screen U Benzodiazepines Scrn Urine Cocaine Screen U Marijuana (THC) Screen COVID-19 (ISABEL) COVID-19 Clin Com Blood Type Antibody Screen Crossmatch Airway Mallampati Class: III TM Dist: >3cm Neck ROM: Full Assessment and Plan Assessment Anesthesia Assessment: Anesthesia Plan Discussed, Smoking Cess. Discussed and Chart Reviewed Final Anesthetic Review Family History of Problems with Anesthesia: No History of Problems with Anesthesia: No NPO: Yes ASA Class: III and Emergency Final Preanesthetic Review: No Changes in Pt Med Stat, Meds/Allgs Chart Rev iewed, Consent Obtained/Reviewed and Anes Risks/Benef Reviewed Patient Risk: Intermediate Procedure Risk: Intermediate Anesthetic Plan Anesthetic Plan: GA Disposition: Standard PACU and Inp. Admit - Standard Bed
--- NOTE | 2022-01-20 09:24 | MHC.SHP ---
Pre-Procedural Eval Section A Date of Service: 01/20/22 The patient is an INPATIENT: Yes The History & Physical has been completed within 30 days and I have reviewed it.: Yes Section B Chief Complaint: GIB Allergies: Allergies Allergy/AdvReac Type Severity Reaction Status Date / Time No Known Allergies Allergy Verified 01/18/22 11:47 Plan I have reviewed the history and physical and performed a pertinent physical examination on my patient. No changes have occurred unless specified.
--- NOTE | 2022-01-20 10:24 | W.PM.OPN ---
Operative Note Operative Note Date of Service: 01/20/22 Narrative: Procedure Description: EGD Indication: [] Anesthesia: MAC FLEXIBLE TRANSORAL UPPER GASTROINTESTINAL ENDOSCOPY UPPER ENDOSCOPY Consent: Indications for the procedure and potential complications of bleeding, perforation, reaction to medications and missed diagnosis were discussed with the patient and informed consent was obtained. Instrument: Olympus GIF H 190 J mid size upper endoscope Monitoring: Vital signs and clinical assessment, continuous EKG monitoring, Pulse oximetry, Carbon Dioxide monitoring and blood pressure monitoring were done throughout the procedure. Procedure: The patient was placed in the left lateral decubitis position and pre-procedure medications were administered and a bite block was placed. The endoscope was inserted into the mouth and advanced under direct vision to the third part of duodenum. A careful inspection was made as the upper endoscope was withdrawn including a retroflexed examination of the proximal stomach; Findings and interventions are described below. Findings: Larynx:normal Esophagus: GE junction at 40 cm, diaphragm hiatus at 40 cm, no varices or esophagitis. Stomach: Patchy gastric erythema. Biopsies were obtained. Grade 2 flap valve on retroflexed examination of the cardia. Duodenum: Normal bulb, abnormal duodenal sweep and descending second part of duodenum with ulcerated, irregular, hard and firm tissue for about 4 cm, circumferential thickening. There was also narrowing and stricturing. bx taken After biopsies taken, hemospray was applied to stop the oozing from biopsy sites. Intervention: Biopsies as noted above Impression/Findings: duodenal ulceration and mass, concern for neoplasia PLAN: await biopsies if LFt worsen then may need transfer to tertiary center for PTC, ampulla not visible and unlikely to have successful drainage of CBD via ERCP keep on soft diet can cont PPI and add carafate.
--- NOTE | 2022-01-20 11:04 | HO.PM.IMPN ---
Subjective Subjective Date of Service: 01/20/22 Interval History: large bloody BM overnight and hypotensive another 1u pRBCs given H+H stable BP improved lightheadedness improved to EGD today Review of Systems Review of Systems: Yes all other systems are reviewed and are negative Physical Exam Vital Signs: Vital Signs: Last Vital Signs Temp 98.5 F 01/20/22 10:36 Pulse 83 01/20/22 10:41 Resp 18 01/20/22 10:41 BP 94/42 L 01/20/22 10:41 Pulse Ox 94 01/20/22 10:41 O2 Del Method 01/20/22 10:41 BMI result Body Mass Index 35.3 Gen: in no acute distress HEENT: sclera icteric, moist + palemucus membranes Neck: supple Lungs: clear to auscultation bilaterally Heart: regular rate and rhythm, no murmurs Abd: soft, non-tender, non-distended, obese Ext: no edema Skin: warm/well-perfused Neuro: alert and oriented x3, no focal findings Psych: appropriate affect Objective Data Active Medications Acetaminophen (Acetaminophen 325 Mg Tablet) 650 mg PO Q6H PRN PRN Reason: Pain, Mild (Pain Scale 1-3) Gabapentin (Gabapentin 100 Mg Capsule) 100 mg PO BEDTIME [facility] Last Admin: 01/19/22 23:29 Dose: 100 mg Documented By: NEVAEH Hydroxyzine HCl (Hydroxyzine Hcl 25 Mg Tablet) 25 mg PO BID PRN PRN Reason: itching Lactated Ringer's (Lr) 1,000 mls @ 125 mls/hr IVCONT .Q8H [facility] Last Admin: 01/20/22 08:51 Dose: 125 mls/hr Documented By: ELENI Octreotide Acetate 500 mcg/ (Sodium Chloride) 501 mls @ 50.1 mls/hr IVCONT .Q10H [facility] Last Infusion: 01/20/22 09:25 Dose: 0 mcg/hr, 0 mls/hr Documented By: ELENI Levothyroxine Sodium (Levothyroxine Sodium 50 Mcg Tablet) 50 mcg PO DAILY@0630 [facility] Last Admin: 01/20/22 05:45 Dose: Not Given Documented By: JOEY Non-Admin Reason: NPO Ondansetron HCl (Ondansetron Hcl 4 Mg/2 Ml Vial) 4 mg IVPUSH Q8H PRN PRN Reason: Nausea and Vomiting Pantoprazole Sodium (Pantoprazole Sodium 40 Mg/10 Ml Vial) 40 mg IVPUSH BID@0630,1630 [facility] Last Admin: 01/20/22 05:49 Dose: 40 mg Documented By: JOEY Pharmacy Consult (Consult Rx Perform Med Rec) 1 each MISCELLANE ONCE PRN PRN Reason: Consult order Sodium Chloride (0.9 % Sodium Chloride Flush 3 Ml Syringe) 3 ml IVFLUSH QSHIFT [facility] Last Admin: 01/20/22 07:19 Dose: Not Given Documented By: ELENI Non-Admin Reason: IV Running Vitamin D (Cholecalciferol (Vitamin D3) 25 Mcg Tablet) 25 mcg PO DAILY [facility] Last Admin: 01/20/22 09:25 Dose: Not Given Documented By: ELENI Non-Admin Reason: NPO Labs CBC & Chem 7: 01/20/22 07:09 01/20/22 07:10 Labs: Laboratory Results - last 24 hr 01/19/22 01/19/22 01/19/22 11:27 11:27 16:52 MCV MCH MCHC RDW Plt Count MPV Absolute Nucleated RBC Nucleated RBC % (auto) PT INR Anion Gap Estim Creat Clear Calc Estimated GFR Random Glucose Lactic Acid F/U @ 2Hr 1.4 Calcium Total Bilirubin Direct Bilirubin AST ALT Alkaline Phosphatase Total Protein Albumin Stool Occult Blood POSITIVE Blood Type A Positive Antibody Screen NEGATIVE Crossmatch See Detail 01/19/22 01/19/22 01/20/22 16:52 19:26 07:09 MCV 89.0 D MCH 29.5 MCHC 33.2 RDW 18.2 H Plt Count 126 L D MPV Not Reportable Absolute Nucleated RBC 0.000 Nucleated RBC % (auto) 0.0 PT 12.4 INR 1.1 Anion Gap 12 Estim Creat Clear Calc 51.2 Estimated GFR 53 Random Glucose 148 H Lactic Acid F/U @ 2Hr Calcium 7.4 L D Total Bilirubin Direct Bilirubin AST ALT Alkaline Phosphatase Total Protein Albumin Stool Occult Blood Blood Type Antibody Screen Crossmatch 01/20/22 07:10 MCV MCH MCHC RDW Plt Count MPV Absolute Nucleated RBC Nucleated RBC % (auto) PT INR Anion Gap 12 Estim Creat Clear Calc 47.1 Estimated GFR 48 Random Glucose 189 H Lactic Acid F/U @ 2Hr Calcium 7.7 L Total Bilirubin 3.5 H Direct Bilirubin 2.4 H AST 140 H ALT 141 H Alkaline Phosphatase 290 H Total Protein 4.5 L Albumin 2.6 L Stool Occult Blood Blood Type Antibody Screen Crossmatch ITS Impressions Chest X-Ray 01/19/22 09:45 IMPRESSION: No evidence for acute disease in the chest. Abdomen Ultrasound 01/19/22 11:18 IMPRESSION: The common duct is dilated here with possible echogenicities within the duct. The duct is increasing in caliber from previous ultrasound. There is no convincing evidence for intrahepatic ductal dilatation at this time. The gallbladder appears distended. No stone is seen but I cannot exclude some mild pericholecystic fluid. The pancreas is not adequately visualized. There is no free fluid. Consider MR/MRCP to fully evaluate Cholangiopancreatography MRI 01/19/22 15:30 IMPRESSION: New common bile duct dilation to 1.8 cm tapering abruptly in the head of the pancreas. New moderate intrahepatic biliary ductal dilatation is seen. There is also new mild dilation of the proximal pancreatic duct, up to 4-5 mm in the head and neck of the pancreas, tapering to normal caliber in the body. Better seen on the prior CT 10/28/2021 but visible on the current MRI as well, there is circumferential wall thickening of the mid duodenum likely extending to involve the region of the ampulla on the current study possibly previously as well. Most likely the process that accounts for the duodenal wall thickening accounts for the dilation of the common bile duct and pancreatic duct as no discrete pancreatic head mass is seen albeit on noncontrast imaging. Recommend upper endoscopy/ERCP for further evaluation. The wall thickening could represent infectious or inflammatory duodenitis but a malignancy is a concern as well. There is circumferential appearance on the prior CT scan argues against simple ulcer disease. See humphrey images. Abdomen/Pelvis CT 01/19/22 19:41 IMPRESSION: There is high density ingested material within the stomach and small bowel on the precontrast images which limits evaluation for intraluminal extravasated IV contrast in the setting of active GI bleeding. No site of active GI bleeding confirmed on the scan. As noted on the earlier MRCP, however, there is circumferential abnormal wall thickening of the duodenum including the region of the ampulla. There is subtle adjacent fat stranding with an area of possible ulceration laterally. Although this could be infectious or inflammatory, a malignancy is a consideration. This process likely accounts for obstruction of the distal common bile duct and pancreatic duct in the region of the ampulla. Recommend upper endoscopy/ERCP for further evaluation. Microbiology Microbiology Results: Microbiology 01/19/22 09:35 Blood Culture - Preliminary Blood - Venous No growth after 24 hours. Assessment and Plan (1) Acute blood loss anemia: Status: Acute (2) UGIB (upper gastrointestinal bleed): Status: Acute Plan hospital d#2 66yo F with HTN nephrolithiasis, H pylori gastritis s/p recent bismuth-based treatment, DARRYL on CPAP, hypothyroidism, and RLS who has had symptomatic hypotension over the last few weeks and has serially discontinued her 3 antihypertensives.? She presents with hypotension, anemia, guaiac-positive stool, acute liver injury with mixed cholestatic/hepatocellular pattern, and SAVANNA. She is found to have an ulcerated irregular, hard mass in the duodenum with circumferential thickening, narrowing, and stricturing # hypotension due to acute blood loss anemia due to UGIB from ulcerated duodenal mass suspicious for neoplasm # cholestatic/hepatocellular liver injury # dilated CBD - H+H stable after transfused 2u pRBCs. - f/u biopsy results - monitor LFTs; if worsen, may need transfer to tertiary care center for PTC as ampulla not visible and will not be able to drain CBD via ERCP - continue PPI, sucralfate # SAVANNA - prerenal; resolved after fluid-resuscitating and holding ARB # HTN, now hypotensive - holding all 3 antihypertensives [olmesartan, spironolactone, amlodipine] # hypothyroidism - LT4 # DARRYL - CPAP at night # RLS - gabapentin # VTE prophylaxis: SCDs, no heparin given GI bleed + EGD/biopsy/ulcerated mass In my clinical judgment, the patient requires continued hospitalization for the following reasons: GI bleeding Quality Stroke Does the patient have a stroke diagnosis?: No VTE Prior VTE?: No VTE Risk Level:: Medical - moderate - high VTE Device Contraindication: N/A - Device Ordered VTE Drug Contraindication: Treatment Not Indicated
[2022-01-20] MEDS: hydrOXYzine HCL 25 MG TABLET PO ×2 (12:14→19:52)
[2022-01-20] MEDS: Octreotide Acetate 500 MCG in 0.9 % Sodium Chloride 500 ML 50.1 MCG IVCONT ×2 (12:23→19:44)
[2022-01-20] MEDS: Sucralfate 1 GM TABLET PO ×3 (12:59→19:43)
--- NOTE | 2022-01-20 16:16 | PC.NURSE ---
PATIENT WAS ASSISTED UNTO BED SIDE COMMODE ,PATIENT HAD MODERATE STOOL WITH BLOOD ,RN AWARE .
[2022-01-20] MEDS: Gabapentin 100 MG CAPSULE PO (19:44)
[2022-01-20] MEDS: diphenhydrAMINE HCL 25 MG TABLET PO (21:41)
[2022-01-21] MEDS: diphenhydrAMINE HCL 25 MG TABLET PO (00:43)
[2022-01-21 04:00] VITALS: BP 124/61; PULSE 67; RESP 16; TEMP 36.9; O2SAT 97
--- NOTE | 2022-01-21 05:54 | MHC.PIE ---
Shift eval 12a-7a. Assumed care at approx 0000. Patient c/o feet itching. Started approx 3 weeks ago when put on abx for H. Pylori. Patient reports taking hydroxizine with little effect. Dr Honeycutt made aware - ordered additional one time dose of benedryl, 25mg PO, given @ 0043. Patient also given cold packs for feet. patient still having loose stools, burgundy in color. Vitals stable. Patient resting with eyes closed on/off, not labored breathing.
[2022-01-21] MEDS: Lactated Ringers 1,000 ML 125 ML IVCONT ×2 (06:24→14:31)
[2022-01-21] MEDS: Pantoprazole Sodium 40 MG/10 ML VIAL IVPUSH ×2 (06:24→17:12)
[2022-01-21] MEDS: Levothyroxine Sodium 50 MCG TABLET PO (06:24)
[2022-01-21] MEDS: Sucralfate 1 GM TABLET PO ×4 (06:24→20:06)
[2022-01-21 07:47] LABS: Hematocrit 24.6 % (37.0-47.0); Hemoglobin 7.9 g/dl (12.0-16.0); Mean Corpuscular HGB Conc 32.1 g/dl (31.0-35.0); Mean Corpuscular Hemoglobin 28.8 pg (27.0-33.0); Mean Corpuscular Volume 89.8 fL (80.0-98.0); Mean Platelet Volume 13.6 fL (9.4-12.3); Platelet Count 125 X10*3/uL (160-400); Red Blood Count 2.74 X10*6/uL (4.20-5.50); Red Cell Distribution Width 18.2 % (11.0-16.0); White Blood Count 10.3 X10*3/uL (4.8-10.8)
[2022-01-21 08:00] VITALS: BP 111/55; PULSE 62; RESP 16; TEMP 36.4; O2SAT 95
[2022-01-21 08:08] LABS: Alanine Aminotransferase 109 U/L (0-31); Albumin Level 2.8 g/dL (3.5-5.0); Alkaline Phosphatase 255 U/L (39-117); Anion Gap 11 (12-20); Aspartate Amino Transferase 84 U/L (5-31); Bilirubin Total 1.8 mg/dL (0.0-1.0); Blood Urea Nitrogen 25 mg/dL (9-16); Carbon Dioxide 21 mmol/L (22-29); Chloride 114 mmol/L (96-108); Creatinine Clr Calc Pharmacy 58.5; Estimated Glomerular Filt Rate > 60; Glucose Random 168 mg/dL (60-115); Potassium 4.7 mmol/L (3.3-5.1); Sodium 141 mmol/L (135-145); Total Protein 4.8 g/dL (6.5-8.0)
--- NOTE | 2022-01-21 08:46 | HO.POSTANES ---
Post Anesthesia Evaluation Post Anesthesia Evaluation Vital Signs: Vital Signs Temp Pulse Resp BP Pulse Ox O2 Del Method O2 Flow Rate 01/21/22 08:00 97.5 F 62 16 111/55 L 95 Room Air 01/21/22 04:00 98.4 F 67 16 124/61 97 Room Air 01/20/22 23:00 98.5 F 70 18 107/47 L 97 Nasal Cannula 2.0 Anesthesia: General Endotracheal-GETA Mental Status: Awake Pain Control: Satisfactory Nausea/Vomiting: None Hydration: Adequate Anesthesia-Related Issues: No Anes. Related Issues
[2022-01-21] MEDS: Cholecalciferol (Vitamin D3) 25 MCG TABLET PO (09:09)
[2022-01-21 09:20] VITALS: O2SAT 95
[2022-01-21] MEDS: Octreotide Acetate 500 MCG in 0.9 % Sodium Chloride 500 ML 50.1 MCG IVCONT ×2 (09:42→20:37)
[2022-01-21 12:00] VITALS: BP 112/55; PULSE 69; RESP 17; TEMP 36.4; O2SAT 96
--- NOTE | 2022-01-21 12:31 | PC.NURSE ---
pt up to bedside commode several times. denies Pain. stool liquid and dark/green. pt on clear liquid diet with no complaints at this time
--- NOTE | 2022-01-21 12:53 | HO.PM.IMPN ---
Subjective Subjective Date of Service: 01/21/22 Interval History: BP improved No abd pain no further GI bleeding Tolerating clears; wishes to try solids Review of Systems Review of Systems: Yes all other systems are reviewed and are negative Physical Exam Vital Signs: Vital Signs: Last Vital Signs Temp 97.5 F 01/21/22 08:00 Pulse 62 01/21/22 08:00 Resp 16 01/21/22 08:00 BP 111/55 L 01/21/22 08:00 Pulse Ox 95 01/21/22 09:20 O2 Del Method 01/21/22 09:20 O2 Flow Rate 2.0 01/20/22 23:00 BMI result Body Mass Index 35.3 Gen: in no acute distress HEENT: sclera icteric, moist + pale mucus membranes Neck: supple Lungs: clear to auscultation bilaterally Heart: regular rate and rhythm, no murmurs Abd: soft, non-tender, non-distended, obese Ext: no edema Skin: warm/well-perfused Neuro: alert and oriented x3, no focal findings Psych: appropriate affect Objective Data Active Medications Acetaminophen (Acetaminophen 325 Mg Tablet) 650 mg PO Q6H PRN PRN Reason: Pain, Mild (Pain Scale 1-3) Diphenhydramine HCl (Diphenhydramine Hcl 25 Mg Tablet) 25 mg PO Q6H PRN PRN Reason: itching Last Admin: 01/21/22 00:43 Dose: 25 mg Documented By: SHALOM Gabapentin (Gabapentin 100 Mg Capsule) 100 mg PO BEDTIME [facility] Last Admin: 01/20/22 19:44 Dose: 100 mg Documented By: RADHA Hydroxyzine HCl (Hydroxyzine Hcl 25 Mg Tablet) 25 mg PO BID PRN PRN Reason: itching Last Admin: 01/20/22 19:52 Dose: 25 mg Documented By: RADHA Lactated Ringer's (Lr) 1,000 mls @ 125 mls/hr IVCONT .Q8H [facility] Last Admin: 01/21/22 06:24 Dose: 125 mls/hr Documented By: SHALOM Octreotide Acetate 500 mcg/ (Sodium Chloride) 501 mls @ 50.1 mls/hr IVCONT .Q10H [facility] Last Admin: 01/21/22 09:42 Dose: 50 mcg/hr, 50.1 mls/hr Documented By: LESLIE Levothyroxine Sodium (Levothyroxine Sodium 50 Mcg Tablet) 50 mcg PO DAILY@0630 [facility] Last Admin: 01/21/22 06:24 Dose: 50 mcg Documented By: SHALOM Ondansetron HCl (Ondansetron Hcl 4 Mg/2 Ml Vial) 4 mg IVPUSH Q8H PRN PRN Reason: Nausea and Vomiting Pantoprazole Sodium (Pantoprazole Sodium 40 Mg/10 Ml Vial) 40 mg IVPUSH BID@0630,1630 [facility] Last Admin: 01/21/22 06:24 Dose: 40 mg Documented By: SHALOM Pharmacy Consult (Consult Rx Perform Med Rec) 1 each MISCELLANE ONCE PRN PRN Reason: Consult order Sodium Chloride (0.9 % Sodium Chloride Flush 3 Ml Syringe) 3 ml IVFLUSH QSHIFT [facility] Last Admin: 01/21/22 09:09 Dose: Not Given Documented By: LESLIE Non-Admin Reason: IV Running Sucralfate (Sucralfate 1 Gm Tablet) 1 gm PO QIDACHS [facility] Last Admin: 01/21/22 12:22 Dose: 1 gm Documented By: LESLIE Vitamin D (Cholecalciferol (Vitamin D3) 25 Mcg Tablet) 25 mcg PO DAILY [facility] Last Admin: 01/21/22 09:09 Dose: 25 mcg Documented By: LESLIE Labs CBC & Chem 7: 01/21/22 07:22 01/21/22 07:22 Labs: Laboratory Results - last 24 hr 01/21/22 01/21/22 07:22 07:22 MCV 89.8 MCH 28.8 MCHC 32.1 RDW 18.2 H Plt Count 125 L MPV 13.6 H Absolute Nucleated RBC 0.000 Nucleated RBC % (auto) 0.0 Anion Gap 11 L Estim Creat Clear Calc 58.5 Estimated GFR > 60 Random Glucose 168 H Calcium 8.0 L Total Bilirubin 1.8 H AST 84 H ALT 109 H Alkaline Phosphatase 255 H Total Protein 4.8 L Albumin 2.8 L Microbiology Microbiology Results: Microbiology 01/19/22 09:35 Blood Culture - Preliminary Blood - Venous No growth after 48 hours. 01/19/22 09:35 Blood Culture - Preliminary Blood - Venous No growth after 48 hours. Assessment and Plan (1) Acute blood loss anemia: Status: Acute (2) UGIB (upper gastrointestinal bleed): Status: Acute Assessment and Plan: hospital d#3 66yo F with HTN nephrolithiasis, H pylori gastritis s/p recent bismuth-based treatment, DARRYL on CPAP, hypothyroidism, and RLS who has had symptomatic hypotension over the last few weeks and has serially discontinued her 3 antihypertensives.? She presents with hypotension, anemia, guaiac-positive stool, acute liver injury with mixed cholestatic/hepatocellular pattern, and SAVANNA.? She is found to have an ulcerated irregular, hard mass in the duodenum with circumferential thickening, narrowing, and stricturing # hypotension due to acute blood loss anemia due to UGIB from ulcerated duodenal mass suspicious for neoplasm # cholestatic/hepatocellular liver injury # dilated CBD - H+H stable after transfused 2u pRBCs - advance diet today as tolerated - f/u biopsy results, may need Oncology consultation - monitor LFTs; if worsen, may need transfer to tertiary care center for PTC as ampulla not visible and will not be able to drain CBD via ERCP - continue PPI, sucralfate # SAVANNA - prerenal; resolved after fluid-resuscitating and holding ARB # HTN, now hypotensive - holding all 3 antihypertensives [olmesartan, spironolactone, amlodipine] and BP now improved after resuscitation with pRBCs # hypothyroidism - LT4 # DARRYL - CPAP at night # RLS - gabapentin # VTE prophylaxis: SCDs, no heparin given GI bleed + EGD/biopsy/ulcerated mass # dispo: PT consultation In my clinical judgment, the patient requires continued hospitalization for the following reasons: GI bleeding Plan hospital d#2 66yo F with HTN nephrolithiasis, H pylori gastritis s/p recent bismuth-based treatment, DARRYL on CPAP, hypothyroidism, and RLS who has had symptomatic hypotension over the last few weeks and has serially discontinued her 3 antihypertensives.? She presents with hypotension, anemia, guaiac-positive stool, acute liver injury with mixed cholestatic/hepatocellular pattern, and SAVANNA. She is found to have an ulcerated irregular, hard mass in the duodenum with circumferential thickening, narrowing, and stricturing # hypotension due to acute blood loss anemia due to UGIB from ulcerated duodenal mass suspicious for neoplasm # cholestatic/hepatocellular liver injury # dilated CBD - H+H stable after transfused 2u pRBCs. - f/u biopsy results - monitor LFTs; if worsen, may need transfer to tertiary care center for PTC as ampulla not visible and will not be able to drain CBD via ERCP - continue PPI, sucralfate # SAVANNA - prerenal; resolved after fluid-resuscitating and holding ARB # HTN, now hypotensive - holding all 3 antihypertensives [olmesartan, spironolactone, amlodipine] # hypothyroidism - LT4 # DARRYL - CPAP at night # RLS - gabapentin # VTE prophylaxis: SCDs, no heparin given GI bleed + EGD/biopsy/ulcerated mass In my clinical judgment, the patient requires continued hospitalization for the following reasons: GI bleeding Quality Stroke Does the patient have a stroke diagnosis?: No VTE Prior VTE?: No VTE Risk Level:: Medical - moderate - high VTE Device Contraindication: N/A - Device Ordered VTE Drug Contraindication: Treatment Not Indicated
[2022-01-21 15:16] VITALS: BP 112/55; PULSE 69; O2SAT 96
[2022-01-21 17:14] VITALS: BP 121/54; PULSE 70; RESP 16; TEMP 36.3; O2SAT 97
--- NOTE | 2022-01-21 18:07 | PC.NURSE ---
Pt has used the beside commode twice since 3:00 pm. Two urines and one stool. Minimal assistance was required for pt to get in and out of bed and to the commode. SG
--- NOTE | 2022-01-21 19:44 | PC.NURSE ---
pt c/o IV site leaking IV patent, flushes, no redness at the site, however IV removed per pt request, new IV placed by this RN.
[2022-01-21] MEDS: Gabapentin 100 MG CAPSULE PO (20:06)
[2022-01-21] MEDS: hydrOXYzine HCL 25 MG TABLET PO (20:06)
--- NOTE | 2022-01-22 00:06 | PC.NURSE ---
pt assisted to bedside commode and provided perineal care
[2022-01-22] MEDS: Lactated Ringers 1,000 ML 125 ML IVCONT (00:17)
--- NOTE | 2022-01-22 00:49 | PC.NURSE ---
pt assisted to bedside commode, perineal care provided, pt given warm blankets.
[2022-01-22] MEDS: Levothyroxine Sodium 50 MCG TABLET PO (05:56)
[2022-01-22] MEDS: Sucralfate 1 GM TABLET PO ×4 (05:56→21:11)
[2022-01-22] MEDS: Pantoprazole Sodium 40 MG/10 ML VIAL IVPUSH ×2 (05:57→16:56)
[2022-01-22 06:32] VITALS: BP 124/69; PULSE 69; RESP 16; TEMP 36.2; O2SAT 93
[2022-01-22 07:29] LABS: Hematocrit 25.8 % (37.0-47.0); Hemoglobin 8.3 g/dl (12.0-16.0); Mean Corpuscular HGB Conc 32.2 g/dl (31.0-35.0); Mean Corpuscular Hemoglobin 29.7 pg (27.0-33.0); Mean Corpuscular Volume 92.5 fL (80.0-98.0); Mean Platelet Volume 13.3 fL (9.4-12.3); Platelet Count 137 X10*3/uL (160-400); Red Blood Count 2.79 X10*6/uL (4.20-5.50); White Blood Count 11.8 X10*3/uL (4.8-10.8)
[2022-01-22 07:58] LABS: Alanine Aminotransferase 92 U/L (0-31); Albumin Level 2.9 g/dL (3.5-5.0); Alkaline Phosphatase 236 U/L (39-117); Anion Gap 10 (12-20); Aspartate Amino Transferase 68 U/L (5-31); Bilirubin Total 1.4 mg/dL (0.0-1.0); Blood Urea Nitrogen 22 mg/dL (9-16); Calcium 8.3 mg/dL (8.4-10.2); Carbon Dioxide 23 mmol/L (22-29); Chloride 114 mmol/L (96-108); Creatinine Clr Calc Pharmacy 57.8; Estimated Glomerular Filt Rate > 60; Glucose Random 141 mg/dL (60-115); Potassium 4.3 mmol/L (3.3-5.1); Sodium 143 mmol/L (135-145); Total Protein 5.1 g/dL (6.5-8.0)
[2022-01-22] MEDS: 0.9 % Sodium Chloride Flush 3 ML SYRINGE IVFLUSH ×2 (08:06→16:57)
[2022-01-22] MEDS: Cholecalciferol (Vitamin D3) 25 MCG TABLET PO (08:15)
--- NOTE | 2022-01-22 08:18 | PC.NURSE ---
pt a/o x3 no sob/martínez noted, skin pink warm dry speaks in full sentences. no diarrhea for a couple days now per pt. small formed bm this am per pt. pt oob to chair. per care done and bed change by pct. pt aware of plan of care.
--- NOTE | 2022-01-22 08:23 | PC.NURSE ---
pt is eating and drinking fluids well.
[2022-01-22 08:48] VITALS: BP 131/66; PULSE 68; RESP 14; TEMP 35.9; O2SAT 98
--- NOTE | 2022-01-22 10:27 | MHC.CM.PN ---
met sepulveda pt in ed overflow pt is indepndent cm intervention is not indicated pt is vax x2 with moderna she has own riide home dc plan home no servcies
[2022-01-22 11:38] LABS: Lactate Dehydrogenase 182 U/L (122-220)
[2022-01-22 11:56] LABS: Ferritin 513 ng/mL (10-250)
[2022-01-22 13:19] VITALS: BP 135/58; PULSE 68; RESP 19; TEMP 36.1; O2SAT 95
--- NOTE | 2022-01-22 14:24 | HO.PM.IMPN ---
Subjective Subjective Date of Service: 01/22/22 Interval History: Tolerating diet Still dizzy/lightheaded Preliminary path shows likely lymphoma but cannot rule out carcinoma No further GI bleeding Review of Systems Review of Systems: Yes all other systems are reviewed and are negative Physical Exam Vital Signs: Vital Signs: Last Vital Signs Temp 97.0 F 01/22/22 13:19 Pulse 68 01/22/22 13:19 Resp 19 01/22/22 13:19 BP 135/58 L 01/22/22 13:19 Pulse Ox 95 01/22/22 13:19 O2 Del Method 01/22/22 13:19 O2 Flow Rate 2.0 01/20/22 23:00 BMI result Body Mass Index 35.3 Gen: in no acute d istress HEENT: scl era icteric, moist + pale mucus memb ranes Neck: supple Lungs: clear to a uscultation bilate rally Heart: regul ar rate and rhythm , no murmurs Abd: soft, non-tender, non-distended, obe se Ext: no edema S kin: warm/well-per fused Neuro: alert and oriented x3, no focal findings Psych: appropriate affect Objective Data Active Medications Acetaminophen (Acetaminophen 325 Mg Tablet) 650 mg PO Q6H PRN PRN Reason: Pain, Mild (Pain Scale 1-3) Diphenhydramine HCl (Diphenhydramine Hcl 25 Mg Tablet) 25 mg PO Q6H PRN PRN Reason: itching Last Admin: 01/21/22 00:43 Dose: 25 mg Documented By: SHALOM Gabapentin (Gabapentin 100 Mg Capsule) 100 mg PO BEDTIME [facility] Last Admin: 01/21/22 20:06 Dose: 100 mg Documented By: LEILA Hydroxyzine HCl (Hydroxyzine Hcl 25 Mg Tablet) 25 mg PO BID PRN PRN Reason: itching Last Admin: 01/21/22 20:06 Dose: 25 mg Documented By: LEILA Levothyroxine Sodium (Levothyroxine Sodium 50 Mcg Tablet) 50 mcg PO DAILY@0630 [facility] Last Admin: 01/22/22 05:56 Dose: 50 mcg Documented By: LEILA Ondansetron HCl (Ondansetron Hcl 4 Mg/2 Ml Vial) 4 mg IVPUSH Q8H PRN PRN Reason: Nausea and Vomiting Pantoprazole Sodium (Pantoprazole Sodium 40 Mg/10 Ml Vial) 40 mg IVPUSH BID@0609,2820 [facility] Last Admin: 01/22/22 05:57 Dose: 40 mg Documented By: LEILA Pharmacy Consult (Consult Rx Perform Med Rec) 1 each MISCELLANE ONCE PRN PRN Reason: Consult order Sodium Chloride (0.9 % Sodium Chloride Flush 3 Ml Syringe) 3 ml IVFLUSH QSHIFT [facility] Last Admin: 01/22/22 08:06 Dose: 3 ml Documented By: KATLIN Sucralfate (Sucralfate 1 Gm Tablet) 1 gm PO QIDACHS [facility] Last Admin: 01/22/22 12:05 Dose: 1 gm Documented By: KATLIN Vitamin D (Cholecalciferol (Vitamin D3) 25 Mcg Tablet) 25 mcg PO DAILY [facility] Last Admin: 01/22/22 08:15 Dose: 25 mcg Documented By: KATLIN Labs CBC & Chem 7: 01/22/22 06:56 01/22/22 06:56 Labs: Laboratory Results - last 24 hr 01/22/22 01/22/22 06:56 06:56 MCV 92.5 MCH 29.7 MCHC 32.2 RDW 18.0 H Plt Count 137 L MPV 13.3 H Absolute Nucleated RBC 0.000 Nucleated RBC % (auto) 0.0 Anion Gap 10 L Estim Creat Clear Calc 57.8 Estimated GFR > 60 Random Glucose 141 H Calcium 8.3 L Ferritin 513 H Total Bilirubin 1.4 H AST 68 H ALT 92 H Alkaline Phosphatase 236 H Lactate Dehydrogenase 182 Total Protein 5.1 L Albumin 2.9 L Carcinoembryonic Ag 1.60 Microbiology Microbiology Results: Microbiology 01/19/22 09:35 Blood Culture - Preliminary Blood - Venous No growth after 48 hours. Assessment and Plan (1) Acute blood loss anemia: Status: Acute (2) UGIB (upper gastrointestinal bleed): Status: Acute Assessment and Plan: hospital d#4 66yo F with HTN nephrolithiasis, H pylori gastritis s/p recent bismuth-based treatment, DARRYL on CPAP, hypothyroidism, and RLS who has had symptomatic hypotension over the last few weeks and has serially discontinued her 3 antihypertensives.? She presents with hypotension, anemia, guaiac-positive stool, acute liver injury with mixed cholestatic/hepatocellular pattern, and SAVANNA.? She is found to have an ulcerated irregular, hard mass in the duodenum with circumferential thickening, narrowing, and stricturing # hypotension due to acute blood loss anemia due to UGIB from ulcerated duodenal mass suspicious for lymphoma [cannot rule out carcinoma, though less likely] # dilated CBD/cholestatic liver injury - Oncology consultation + outpt f/u - H+H stable after transfused 2u pRBCs - LFTs improved - continue PPI, sucralfate - check orthostatics # SAVANNA - prerenal; resolved after fluid-resuscitating and holding ARB # HTN, now hypotensive - holding all 3 antihypertensives [olmesartan, spironolactone, amlodipine] and BP now improved after resuscitation with pRBCs # hypothyroidism - LT4 # DARRYL - CPAP at night # RLS - gabapentin # VTE prophylaxis: SCDs, no heparin given GI bleed + EGD/biopsy/ulcerated mass # dispo: PT recommends STR but pt would rather go home with VNA and her and other family members can take care of her In my clinical judgment, the patient requires continued hospitalization for the following reasons: orthostasis [facility] hospital d#2 66yo F with HTN nephrolithiasis, H pylori gastritis s/p recent bismuth-based treatment, DARRYL on CPAP, hypothyroidism, and RLS who has had symptomatic hypotension over the last few weeks and has serially discontinued her 3 antihypertensives.? She presents with hypotension, anemia, guaiac-positive stool, acute liver injury with mixed cholestatic/hepatocellular pattern, and SAVANNA. She is found to have an ulcerated irregular, hard mass in the duodenum with circumferential thickening, narrowing, and stricturing # hypotension due to acute blood loss anemia due to UGIB from ulcerated duodenal mass suspicious for neoplasm # cholestatic/hepatocellular liver injury # dilated CBD - H+H stable after transfused 2u pRBCs. - f/u biopsy results - monitor LFTs; if worsen, may need transfer to tertiary care center for PTC as ampulla not visible and will not be able to drain CBD via ERCP - continue PPI, sucralfate # SAVANNA - prerenal; resolved after fluid-resuscitating and holding ARB # HTN, now hypotensive - holding all 3 antihypertensives [olmesartan, spironolactone, amlodipine] # hypothyroidism - LT4 # DARRYL - CPAP at night # RLS - gabapentin # VTE prophylaxis: SCDs, no heparin given GI bleed + EGD/biopsy/ulcerated mass In my clinical judgment, the patient requires continued hospitalization for the following reasons: GI bleeding Quality Stroke Does the patient have a stroke diagnosis?: No VTE Prior VTE?: No VTE Risk Level:: Medical - moderate - high VTE Device Contraindication: N/A - Device Ordered VTE Drug Contraindication: Treatment Not Indicated
[2022-01-22 15:21] VITALS: BP 135/58; PULSE 68; O2SAT 95
[2022-01-22 18:12] VITALS: BP 146/71; PULSE 72; RESP 15; TEMP 36.6; O2SAT 97
--- NOTE | 2022-01-22 19:06 | PC.NURSE ---
Addendum entered by Liana Kan 01/23/22 06:47: Report given to BACILIO Kearney Addendum entered by Liana Kan 01/22/22 21:15: pt alert and oriented. resting in bed. no signs of acute distress notice. breathing equally unlabored Original Note: Report received from BACILIO Peters
[2022-01-22 20:19] VITALS: BP 129/58; PULSE 64; RESP 16; TEMP 36.1; O2SAT 95
[2022-01-22] MEDS: Gabapentin 100 MG CAPSULE 200 MG PO (21:10)
[2022-01-23 00:44] VITALS: BP 119/60; PULSE 64; RESP 14; TEMP 35.8; O2SAT 97
[2022-01-23 04:05] VITALS: BP 116/61; PULSE 65; RESP 15; TEMP 35.8; O2SAT 97
[2022-01-23 05:16] LABS: Alanine Aminotransferase 69 U/L (0-31); Albumin Level 2.7 g/dL (3.5-5.0); Alkaline Phosphatase 205 U/L (39-117); Aspartate Amino Transferase 53 U/L (5-31); Bilirubin Direct 0.8 mg/dL (0.0-0.5); Bilirubin Total 1.3 mg/dL (0.0-1.0); Total Protein 4.8 g/dL (6.5-8.0)
[2022-01-23] MEDS: Pantoprazole Sodium 40 MG/10 ML VIAL IVPUSH (05:59)
[2022-01-23] MEDS: Levothyroxine Sodium 50 MCG TABLET PO (05:59)
[2022-01-23 06:07] VITALS: BP 127/78; PULSE 65; RESP 18; TEMP 36.2; O2SAT 93
[2022-01-23] MEDS: Sucralfate 1 GM TABLET PO (07:32)
[2022-01-23] MEDS: Cholecalciferol (Vitamin D3) 25 MCG TABLET PO (07:32)
--- NOTE | 2022-01-23 08:57 | PC.NURSE ---
pt used bedside commode this am, had loose stools. ate breakfast w morning hs meds w/o issue. awaiting hospitalist rounding this am. no apparent distress.
--- NOTE | 2022-01-23 11:25 | PM.DS ---
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 vs adenoCA, will need outpt f/u DS: Diagnosis Discharge Diagnosis (1) Acute blood loss anemia: Status: Acute (2) UGIB (upper gastrointestinal bleed): Status: Acute DS: Summary Hospital Course Hospital Course: from initial hpi: Chief Complaint: dizziness/lightheadedness 66yo F with HTN previously on amlodipine, olmesartan, and spironolactone, nephrolithiasis, H pylori gastritis s/p recent bismuth-based treatment, DARRYL on CPAP, hypothyroidism, and RLS who has been seeing her PCP, Dr Keila Garcia, over the last few weeks, due to hypotension with symptoms of worsening dizziness and lightheadedness.? She has been taken off of her antihypertensives in succession and yesterday was told to stop them completely.? However, her lightheadedness has worsened and this morning was unable to get off the toilet due to the severity.? She called EMS and her BP was in the 80s/50s.? Endorses exertional dyspnea and orthostasis.? Endorses melena.? Denies abdominal pain or hematochezia.? She has intentionally lost 30 lb over the last 4 months through dietary measures In the ED, she arrived with BP 71/47.? Hb was 8.9 compared to 13.8 on 11/06/21.? FOBT was positive.? Lactate was 2.4.? Total bilirubin elevated to 3.7 with direct component 2.8; AST 248; ALT 189; alk phos 361.? Serum creatinine elevated to 1.51 from baseline of 0.8-1.1. ? LFTs were previously normal 11/06/21.BP is now 88/59 after 2L of IV normal saline and 1 unit of packed red blood cells has been started.? She was also given IV pantoprazole. US of the abdomen showed CBD dilation with possible intraductal echogenicities.? Gallbladder was distended and mild pericholecystic fluid could not be excluded. hospital course: Patient was admitted for hypotension due to acute blood loss anemia due to upper GI bleed from ulcer duodenal mass suspicious for lymphoma though pathology is still pending, also noted to have hyper bilirubin due to cholestasis. Patient underwent EGD and mass was biopsied, she was continued on PPI, she was transfused 2 units PRBC. Hemoglobin has remained stable, LFTs have improved. She was also noted to have acute kidney injury which improved after fluid resuscitation and holding BP meds. Will continue to hold antihypertensives on discharge. For hypothyroidism she will continue Synthroid, for DARRYL so continue CPAP, for restless leg syndrome who she will continue gabapentin. Patient is now feeling better and is no longer active bleeding. She will follow-up with Oncology on Friday and continue PPI as outpatient. Time Spent with Patient Time attestation: Total time spent providing and/or coordinating discharge services: Discharge coordination time: Greater than 30 minutes Quality: Safe Use of Opioids Does Pt have an Active Cancer Diagnosis on the Problem List?: No Quality: Stroke Does the patient have a stroke diagnosis?: No Physical Exam Vital Signs: Vital Signs: Last Vital Signs Temp 97.1 F 01/23/22 06:07 Pulse 65 01/23/22 06:07 Resp 18 01/23/22 06:07 BP 127/78 01/23/22 06:07 Pulse Ox 93 01/23/22 06:07 O2 Del Method 01/23/22 06:07 O2 Flow Rate 2.0 01/20/22 23:00 BMI result Body Mass Index 35.3 General: AO X 3, no acute distress Resp: CTA bilateral, no accessory muscles used CVS: S1,S2,RRR GI: soft, non tender, non distended Neuro: motor grossly intact, alert Psych: appropriate affect, appropriate insight DS: Data Data Completed and Pending Pending studies at discharge: Pending at discharge 01/20/22 10:00 Surgical [PTH] Routine Labs on day of discharge: Laboratory Results - last 24 hr 01/22/22 01/23/22 06:56 04:27 Ferritin 513 H Total Bilirubin 1.3 H Direct Bilirubin 0.8 H AST 53 H ALT 69 H Alkaline Phosphatase 205 H Lactate Dehydrogenase 182 Total Protein 4.8 L Albumin 2.7 L Carcinoembryonic Ag 1.60 Preliminary micro results at discharge 01/19/22 09:35 Blood Culture - Preliminary Blood - Venous No growth after 48 hours. 01/19/22 09:35 Blood Culture - Preliminary Blood - Venous No growth after 48 hours. Discharge Plan Discharge Patient Disposition: Home Health Service Discharge Diagnosis: gi bleed, duodenal mass, samuel Referrals: [facility] [Other] - 1 Week Lauren Coyne MD [Physician] - 1 Week Keila Garcia MD [Primary Care Provider] - 1 Week Discharge Medications: New omeprazole 40 mg capsule,delayed release(DR/EC) 40 mg PO DAILY Qty: 30 0RF Continued hydroxyzine HCl 25 mg tablet 25 mg PO BID PRN (Reason: itching) Qty: 30 0RF cholecalciferol (vitamin D3) [Vitamin D3] 25 mcg (1,000 unit) Tablet 25 mcg PO DAILY levothyroxine 50 mcg tablet 50 mcg PO DAILY@0630 gabapentin 100 mg capsule 100 mg PO BEDTIME Discontinued spironolactone 50 mg tablet 50 mg PO DAILY aspirin [Adult Aspirin Regimen] 81 mg tablet,delayed release (DR/EC) 81 mg PO DAILY olmesartan 20 mg tablet 20 mg PO DAILY 30 Days Qty: 30 0RF Hold Instructions: Doctor's Order Discharge Orders: Discharge Order (Routine); Ordered 01/23/22 Ordered By: Rodrick Lutz Diet: Advance to usual diet Activity on Discharge: As tolerated Stand Alone Forms: Patient Portal Discharge page Care Plan Goals: work up duodenal mass Health Concerns: dueodenal mass, samuel Plan of Treatment: stop aspirin, follow up with oncology, can hold bp meds for now Assessment: see above
--- NOTE | 2022-01-23 11:30 | MHC.CM.PN ---
pt dcd today ,hvns notified of dc imm sent to medical records
--- NOTE | 2022-01-23 11:33 | P.F2F_ITS ---
Service Date Service Date: 01/23/22 Encounter Date of encounter: 01/23/22 Reasons for Services Signs and symptoms assessed: weakness Reason for physical therapy: home safety and mobility, therapeutic exercises and gait/transfer training Homebound: Leaving the home is medically contraindicated at this time without the asist of a device and/or another person due th the listed conditions above and below. Reason homebound: unsteady gait / fall risk Certification: Based on the above findings, I certify that this patient is confined to the home and needs intermittent assisted care, physical therapy and/or speech therapy, or continues to need occupational therapy. The patient is under my care, and I have initiated the establishment of the plan of care. The patient will be followed by a physician who will periodically review the plan of care.
[2022-01-24 08:47] LABS: Carbohydrate Antigen 19-9 16 U/mL (<34)
== END 2022-01-23 12:14 | disposition home health service (06) | DRG 840 ==
LOC: HO.ED 10:58 → HO.EDOVER 15:25 → HO.IMC 01-22 15:18 → HO.EDOVER 01-22 15:53
PROVIDERS: Internal Medicine; Internal Medicine Gastroenterology; Physician Assistant; Admitting Provider Family Medicine; Emergency Provider Emergency Medicine; PCP Internal Medicine; Visit Provider Internal Medicine
PROC: 0DJ08ZZ Inspection of Upper Intestinal Tract, Via Natural or Artificial Opening Endoscopic (ICD-10-PCS; CPT 43235; principal; 2022-01-20 09:00)
DX: C85.93 Non-Hodgkin lymphoma, unspecified, intra-abdominal lymph nodes (principal); K83.1 Obstruction of bile duct; D62 Acute posthemorrhagic anemia; N17.9 Acute kidney failure, unspecified; K31.5 Obstruction of duodenum; E03.9 Hypothyroidism, unspecified; I95.9 Hypotension, unspecified; I10 Essential (primary) hypertension; G47.33 Obstructive sleep apnea (adult) (pediatric); G25.81 Restless legs syndrome; Z87.442 Personal history of urinary calculi; Z20.822 Contact with and (suspected) exposure to COVID-19; Z79.899 Other long term (current) drug therapy
CPT/HCPCS: 36415; 36430; 71045; 74178; 74181; 76705; 80048; 80053; 80076; 80307; 81003; 82272; 82378; 82728; 83013; 83540; 83605; 83615; 83735; 83880; 84443; 85014; 85018; 85025; 85027; 85045; 85610; 86301; 86850; 86900; 86901; 86923; 87040; 87635; 88305; 88341; 88342; 88360; 88365; 88374; 88377; 93005; 94660; 96361; 96374; 97116; 97162; 99202; 99211; 99285; J1100; J2354; J2370; J2405; P9016; Q0163; Q9967

== ENCOUNTER → 2022-01-29 09:05 | Outpatient (REF) | payer MEDICARE, BC, SELFPAY ==
--- NOTE | 2022-01-29 09:23 | CA_ITS ---
Transthoracic Echocardiogram Patient (Last, First, Middle): Hetal Cr M Gender: Female Date of : 1955 Age: 66 Procedure Date: 01/29/2022 Procedure Type: Transthoracic Echocardiogram Location: OP Height: 152.4 cm Weight: 82.1 kg BSA: 1.79 m2 Heart Rate: bpm BP: 134 / 80 mmHg Chief Lending Officer: Referring MD: Lauren Coyne MD Symptoms: prechemo evaluation Study Quality: Fair ECG Rhythm: Sinus Conclusions: - The left ventricular systolic function is hyperdynamic. The visually estimated ejection fraction is >70%. - There is mild calcification of the aortic valve. - No obvious valvular pathology seen on this study. Findings Left Ventricle Normal left ventricular cavity size. There is mildly increased left ventricular wall thickness. The left ventricular systolic function is hyperdynamic. The visually estimated ejection fraction is >70%. Diastolic function is normal for age. Strain imaging does not seem technically accurate. Right Ventricle Normal right ventricular cavity size and systolic function. Atria Both atria are normal in size. Aortic Valve There is mild calcification of the aortic valve. There is no aortic valve stenosis. There is no aortic valve regurgitation. Mitral Valve The mitral valve appears normal. There is no mitral valve regurgitation. There is no mitral valve stenosis. Pulmonic Valve The pulmonic valve is likely normal. Tricuspid Valve There is trace tricuspid valve regurgitation. The pulmonary artery systolic pressure is normal. Great Vessels The aortic annulus, sinuses of valsalva, and asc aorta are normal in size. Venous The inferior vena cava is normal in size and collapses greater than 50% with inspiration. Pericardium/Pleural There is no evidence of pericardial effusion. Prior Study Comparison Changes noted compared to prior study dated: 10/06/2018. LV now hyperdynamic. Recommendations, Care & Conclusions No obvious valvular pathology seen on this study. Measurements 2D Linear Measurements IVSd: 1.33 0.6-0.9/0.6-1.0 cm LVIDd: 2.21 3.9-5.3/4.2-5.9 cm LVIDd Index: 1.23 2.4-3.2/2.2-3.1 cm/m2 LVIDs: 1.47 2.0-3.6 cm LVPWd: 1.34 0.7-1.1 cm Ao Root: 3.00 2.1-3.5 cm LA Diam: 3.00 2.7-3.8/3.0-4.0 cm LAIDs Index: 1.68 1.5-2.3 cm/m2 LV Mass: 109.64 67-162/88-224 g LV Mass Index: 61.25 43-95/49-115 g/m2 LVOT Diam: 2.00 3.0+(-)1.3 cm 2D Systolic Function EF 4C: 71.60 >55% EF 2C: 62.40 >55% EF BiP: 67.20 >55% Mitral Valve MV Pk E: 0.47 MV PK A: 0.82 MV Decel Time: 128.00 E/A: 0.60 E'Lateral: 9.36 E'Medial: 7.40 E/E' Med: 6.30 E/E' Lat: 5.00 PHT: 37.00 MVA PHT: 5.95 Decel Sampson: 3.65 Aortic Valve AoV Pk Neftaly: 2.07 AoV Mn Neftaly: 1.30 AoV VTI: 0.27 AoV Pk Grad: 17.00 Aov Mn Grad: 8.00 DARBY Cont.VTI: 2.33 LVOT LVOT Pk Neftaly: 1.10 LVOT Mn Neftaly: 0.75 LVOT VTI: 0.20 LVOT Pk Grad: 5.00 LVOT Mn Grad: 3.00 LVOT Diam: 2.00 LVOT Area: 3.14 Diastolic Function MV Pk E: 0.47 MV Pk A: 0.82 E/A: 0.60 E'Medial: 7.40 E/E' Med: 6.30 E' Laterial: 9.36 E/E' Lat: 5.00 Right Ventricle TAPSE (mm): 19.00 TVS' Neftaly: 16.00 Tricuspid Valve TR Pk Neftaly: 1.93 TR Pk Grad: 15.00 RA Press: 3.00 RVSP: 18.00 Great Vessels Aorta Ao Root-2D: 3.00 2.0-3.7 cm Ao Asc: 3.20 2.1-3.4 cm Pulmonary Valve PV Pk Neftaly: 1.18 Peak PV Grad: 6.00 Updated in Other Vendor System with Status of Final Jasen Bear MD electronically signed on 01/31/2022 11:42:21 AM with status of Final
[2022-01-29 10:39] LABS: SCAN SMEAR FLAG 1
[2022-01-29 10:42] LABS: Basophils Percent Auto 0.2 % (0-2); Eosinophils Absolute Auto 0.1 X10*3/uL (0.0-0.4); Eosinophils Percent Auto 0.9 % (0-4); Hematocrit 30.6 % (37.0-47.0); Hemoglobin 9.7 g/dl (12.0-16.0); Imm Gran Pct Auto 0.8 % (0.0-0.4); Lymphocytes Absolute Auto 1.1 X10*3/uL (1.2-4.9); Lymphocytes Percent Auto 9.1 % (20-40); MANUAL DIFF FLAG SCAN; Mean Corpuscular HGB Conc 31.7 g/dl (31.0-35.0); Mean Corpuscular Hemoglobin 29.1 pg (27.0-33.0); Mean Corpuscular Volume 91.9 fL (80.0-98.0); Mean Platelet Volume 13.5 fL (9.4-12.3); Monocytes Absolute Auto 0.7 X10*3/uL (0.1-1.2); Monocytes Percent Auto 5.6 % (2-11); Neutrophils Absolute Auto 10.2 x10*3/uL (2.0-8.3); Neutrophils Percent Auto 83.4 % (45-73); PLT CLUMP 1; Red Blood Count 3.33 X10*6/uL (4.20-5.50); Red Cell Distribution Width 19.7 % (11.0-16.0)
[2022-01-29 10:57] LABS: PLT ABN DIST 1
[2022-01-29 11:31] LABS: Platelet Count 248 X10*3/uL (160-400); White Blood Count 12.2 X10*3/uL (4.8-10.8)
[2022-01-29 11:32] LABS: SLIDE REVIEW VERIFIED
[2022-01-29 11:40] LABS: Alanine Aminotransferase 161 U/L (0-31); Alkaline Phosphatase 805 U/L (39-117); Anion Gap 17 (12-20); Aspartate Amino Transferase 258 U/L (5-31); Bilirubin Total 11.6 mg/dL (0.0-1.0); Blood Urea Nitrogen 14 mg/dL (9-16); Calcium 8.7 mg/dL (8.4-10.2); Carbon Dioxide 22 mmol/L (22-29); Chloride 101 mmol/L (96-108); Estimated Glomerular Filt Rate > 60; Glucose Random 141 mg/dL (60-115); Potassium 3.8 mmol/L (3.3-5.1); Sodium 136 mmol/L (135-145); Total Protein 5.9 g/dL (6.5-8.0)
== END ==
LOC: HO.CARD 09:05
PROVIDERS: PCP Internal Medicine; Visit Provider Internal Medicine
DX: Z01.818 Encounter for other preprocedural examination (principal); C85.99 Non-Hodgkin lymphoma, unspecified, extranodal and solid organ sites; D62 Acute posthemorrhagic anemia
CPT/HCPCS: 36415; 80053; 85025; 93306

== ENCOUNTER 2022-02-22 11:55 | Outpatient (REF) | payer MEDICARE, BC, SELFPAY ==
[2022-02-22 14:06] LABS: Bilirubin Total 5.5 mg/dL (0.0-1.0)
== END 2022-02-22 11:56 | disposition home or self-care (01) ==
LOC: HO.HVNA 11:55
PROVIDERS: Visit Provider Internal Medicine Hematology
DX: E87.0 Hyperosmolality and hypernatremia (principal)
CPT/HCPCS: 82247

== ENCOUNTER 2022-02-26 12:33 | Outpatient (REF) | payer MEDICARE, BC, SELFPAY | END 2022-02-26 12:34 | disposition home or self-care (01) | LOC: HO.HVNA 12:33 | PROVIDERS: Visit Provider Internal Medicine Hematology | DX: E80.7 Disorder of bilirubin metabolism, unspecified (principal) | CPT/HCPCS: 82247 ==

== ENCOUNTER → 2022-05-07 12:47 | Outpatient (BNVA) | payer MEDICARE, BC, SELFPAY | PROVIDERS: PCP Internal Medicine; Visit Provider Urology | DX: N20.0 Calculus of kidney (principal) | CPT/HCPCS: Q3014 ==

== ENCOUNTER 2022-07-25 11:43 | Outpatient (REF) | payer MEDICARE, BC, SELFPAY ==
[2022-07-25 14:25] LABS: TSH reflex Free T4 2.59 uIU/mL (0.32-4.0)
== END 2022-07-25 11:44 | disposition home or self-care (01) ==
LOC: HO.HMGCLDS 11:43
PROVIDERS: PCP Internal Medicine; Visit Provider Internal Medicine
DX: E03.9 Hypothyroidism, unspecified (principal)
CPT/HCPCS: 36415; 84443

== ENCOUNTER 2022-11-05 10:02 | Outpatient (REF) | payer MEDICARE, BC, SELFPAY ==
[2022-11-05 12:34] LABS: TSH reflex Free T4 1.24 uIU/mL (0.32-4.0)
[2022-11-05 12:36] LABS: Alanine Aminotransferase 23 U/L (0-31); Anion Gap 9 (12-20); Aspartate Amino Transferase 38 U/L (5-31); Blood Urea Nitrogen 17 mg/dL (9-16); Carbon Dioxide 29 mmol/L (22-29); Chloride 109 mmol/L (96-108); Cholesterol 205 mg/dL; Estimated Glomerular Filt Rate > 60; HDL Cholesterol 50 mg/dL; LDL Cholesterol Calculated 130 mg/dl; Potassium 4.2 mmol/L (3.3-5.1); Sodium 143 mmol/L (135-145); Triglycerides 128 mg/dL
== END 2022-11-05 10:03 | disposition home or self-care (01) ==
LOC: HO.HMGCLDS 10:02
PROVIDERS: PCP Internal Medicine; Visit Provider Internal Medicine Cardiovascular Disease
DX: R07.89 Other chest pain (principal); E03.9 Hypothyroidism, unspecified; E87.6 Hypokalemia
CPT/HCPCS: 36415; 80051; 80061; 82565; 84443; 84450; 84460; 84520

== ENCOUNTER → 2023-04-02 | Outpatient (RCR) | payer MEDICARE, BC, SELFPAY ==
--- NOTE | 2022-01-25 12:37 | P.CNHO_ITS ---
Subjective - Subjective Chief complaint: Weakness Patient: new to practice Consult date: 01/25/22 Primary Care Provider: Keila Garcia MD HPI - Consult Narrative Reason for consult: Duodenal lymphoma Narrative: Hetal Cr is a 66 year old female who was recently diagnosed with small- bowel lymphoma. She presented with hypotension and GI bleeding, noted to have severe anemia requiring blood transfusion. Patient underwent upper endoscopy on 01/20/2022 this revealed ulcerated, irregular hard tissue in the 2nd part of duodenum, causing circumferential thickening, narrowing and stricture. Biopsy of this revealed lymphoma. She initially presented with hyperbilirubinemia, total bilirubin of 3.5. However this gradually came down to 1.3 mg per dL at the time of discharge. Patient states that she was feeling well until spring of this year when she started to feel weak. She denies loss of appetite, but reports intentional weight loss. She was treated for left breast cancer with lumpectomy and radiation followed by 5 years of tamoxifen at [facility]. 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 There is no family history of gastrointestinal cancers. She is feeling better and denies any further hematochezia melena. She gives a remote history of TIA when she was around 49 years of age. She denies any heart problems. She does not smoke or consume alcohol. Review of Systems - Constitutional Reports as per HPI, Reports no additional constitutional complaints - Cardiovascular Reports no additional cardiovascular complaints - Respiratory Reports no additional respiratory complaints - Gastrointestinal Reports no additional gastrointestinal complaints Oncology Screenings - ECOG Performance Status ECOG Performance Status: 1 [facility] Medical History: Medical History (Last Reviewed 01/25/22 @ 12:44 by CANDICE Horner) Acid reflux Arthritis Cancer Chronic constipation Hx of radiation therapy Hypertension, essential Hypothyroidism Lab test negative for COVID-19 virus Sleep apnea TIA (transient ischemic attack) Family History: Family History (Last Reviewed 01/25/22 @ 12:44 by CANDICE Horner) Father No problems noted. Mother HTN (hypertension) Other Substance use disorder Surgical History: Surgical History (Last Reviewed 01/25/22 @ 12:44 by CANDICE Horner) H/O colonoscopy History of extraction of renal calculus Hx of breast lump removal Hx of section No pertinent past surgical history Social History: Social History (Last Updated 07/22/22 @ 12:46 by NANETTE Horner Living Situation History: Household Members: Spouse Household Members Other:: Custody of 3 grandchildren, she and her are [id number], 15 and 17 Housing: House Alcohol History Details: 1. How often do you have a drink containing alcohol?: a. Never Tobacco History: Patient Tobacco Use Status: Never used Tobacco e-Cigarette/Vaping Use: Never Used Second Hand Smoke Exposure: No Substance Use History: Use of substances other than those prescribed or required for medical reasons : No Domestic Abuse History: Have you been hit, kicked, punched, or otherwise hurt by someone within the past year? If so, by whom?: No Do you feel safe in your current relationship?: Yes Is there a partner from a previous relationship who is making you feel unsafe now?: No Homicidal Assessment: Do you have a plan to hurt others: No Plan Do you have the means to hurt others: No Nutrition Assessment: Recently lost weight without trying: No Occupation Assessmet: service: No Current occupational status: retired Home Medications and Allergies Home Medications Medication Instructions Recorded Confirmed Type cholecalciferol (vitamin D3) 25 25 mcg PO DAILY 05/15/20 01/25/22 History mcg (1,000 unit) tablet (Vitamin D3) gabapentin 100 mg capsule 100 mg PO BEDTIME 11/09/21 01/25/22 History Allergies Allergy/AdvReac Type Severity Reaction Status Date / Time No Known Allergies Allergy Verified 01/18/22 11:47 Physical Exam Vital signs: Vital Signs (72 hours) 01/25/22 12:40 Temperature 97.4 F Pulse Rate 90 Respiratory Rate 14 Blood Pressure 130/67 Pulse Oximetry 96 Oxygen Delivery Method Room Air - Constitutional Present: no acute distress, obese - Routine HEENT Exam Head: Present: normal inspection Eye: Present: EOMI - Routine Neck Exam Present: supple. Absent: lymphadenopathy - Routine Respiratory Exam Present: CTAB. Absent: accessory muscle use - Routine Cardiovascular Exam Cardiovascular: Present: RRR, S1, S2 - Routine Abdominal Exam Present: soft. Absent: mass - Routine Extremities Exam Present: normal inspection Assessment and Plan Patient Active problem list reviewed?: Yes (1) Lymphoma of small bowel Status: Acute Assessment and plan: 1. 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 She presented with GI bleeding and hypotension, CT abdomen/pelvis performed 01/20/2022 revealed circumferential wall thickening of proximal duodenum in the region of the ampulla. Ulceration noted as well as dilated common bile duct and pancreatic duct. Common bile duct noted to be 1.9 cm seen on MRCP tapering abruptly in the region of MPL with duodenal wall thickening. Dilation of pancreatic duct up to 5 mm. No pancreatic lesions seen. EGD revealed ulcerated circumferential mass in the 2nd part of duodenum. 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 Immunostains/molecular studies are pending. I discussed biopsy and further management with patient. Whole-body PET-CT has been ordered. Blood work shows normal LDH. She has anemia related to GI bleeding. Mild thrombocytopenia noted on blood work. I discussed with patient and her diagnosis and further management. She will need treatment as his symptomatic and it appears to be a high-grade lymphoma. It is not clear if she has primary gastrointestinal lymphoma or secondary involvement. Primary non-Hodgkin lymphomas of the GI tract are rare malignancies. She does not have underlying autoimmune disorders or history of using immunosuppressive medication. No history of H pylori infection. No history of inflammatory bowel disease or celiac disease. For recommendations about systemic/chemotherapy will be made once classification of lymphoma is made. PET-CT and echocardiogram have been ordered. Bone marrow biopsy will be ordered if necessary. Follow-up in 1-2 weeks. - Time Spent With Patient Time Spent with Patient (in minutes): 45
[2022-01-25 12:40] VITALS: BP 130/67; PULSE 90; RESP 14; TEMP 36.3; O2SAT 96; BMI 35.4
--- NOTE | 2022-01-25 13:38 | MHC.HEMONCMA ---
Addendum entered by CANDICE Horner 01/25/22 14:26: Pet Scan ordered for Friday echo sent to [facility] by kecia on 01/25/22 Original Note: Pt was seen today for new consult was in office with MigelAnny CERDA, with 1 month follow up (02/06/22 @ 15:00)
--- NOTE | 2022-01-25 13:44 | HO.HEMONCSCH ---
Echo sent to [facility].
--- NOTE | 2022-01-25 14:57 | MHC.HEMONCSW ---
PT IS A 66 YEAR OLD FEMALE WHO RESIDES WITH [facility] AND THEIR 3 GRANDCHILDREN [place] 9,11 AND 17. DIAGNOSIS IS DUODANAL CANCER. EDUCATED ON ILLNESS, TREATMENTS AND RESOURCES. 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 STATES HCP COPY IS HOME. PLAN; CONTINUE WORK UP, PET SCAN ETC. THEN DEVELOP AN INDIVIDUAL TREATMENT PLAN.
--- NOTE | 2022-01-25 15:54 | HO.HEMONCPA ---
NO PA REQUIRED FOR PET/CT SCAN DUE TO MEDICARE BEING PRIMARY INSURANCE. REQUEST FOR PET SCAN APPT FACED TO [facility]
--- NOTE | 2022-01-25 16:51 | MHC.HEMONC ---
Pt here with her for Consultation for new dx following inpt stay for GIB. She had bx which showed duodenal cancer - probably a type of lymphoma. She is feeling better but is deconditioned. She denies pain or eating or digestive problems. She will be scheduled for PET and echo and will see Dr Coyne in 10 days or so. She has all my contact information.
--- NOTE | 2022-01-28 14:47 | HO.HEMONCPA ---
PATIENT IS SCHEDULED FOR PET CT 01/29/22 AT 12:15PM
--- NOTE | 2022-01-28 16:05 | MHC.HEMONCMA ---
Patient called to confirm location for echo appt tomorrow.
--- NOTE | 2022-01-30 11:33 | MHC.HEMONC ---
Pt called this morning to inform us that her itching that she has had has increased in severity and that her urine is dark orange. She is on gabapentin at bedtime but nothing is helping her itch. Pt had recently been inpatient with GI blood loss and was diagnosed with duodenal lymphoma. She had been seen by Dr Jaron RODRIGUEZ while inpatient. She was very upset on phone. I reviewed hr case and looked up bloodwork that was done yesterday per Dr Coyne to f/u on her hgb. HGB was stable but lfts were worse. Bili 11.6. I consulted with Dr Fofana and she reviewed all notes. She is referring pt to Dr Koch for stent. I am faxing notes. Pt is aware of this referral.
--- NOTE | 2022-02-01 09:07 | MHC.HEMONC ---
Pt has appt at [address] Koch on Friday at 3 pm. I will notify her. She is having a lot of itching and Dr Fofana has ordered cholestyramine and I informed pt of that as well. Will check with Dr Fofana if any repeat labs are needed.
--- NOTE | 2022-02-01 09:18 | MHC.HEMONC ---
According to pt PET is Monday 02/05 at 8:15.
--- NOTE | 2022-02-01 13:34 | MHC.HEMONC ---
pt called to report sclera is yellow. Dr Fofana informed. This would be understandable given pt lab with high bili. She should come in Friday for repeat labs. I did tell pt this and gave her number to call over weekend to reach director of pulmonary unit Provider in the event that she feels worse. I told her that her family could call as well if she becomes lethargic or confused or has any concerning sx. She also knows 911 is an option if she needs emergent help.
--- NOTE | 2022-02-05 08:49 | MHC.HEMONC ---
Spoke with pts Migel. Pt was [place] [facility] [place]. He states she had stent placed, and is still admitted to inpt there. He also states is planning to receive her cancer care through [facility] Doretha james.
--- NOTE | 2022-02-05 14:13 | HE.ONCSEC ---
CALLED PATIENT FOR ROUTINE REMINDER CALL , PATIENT DID NOT ANSWER I LEFT A DETAILED VOICEMAIL INFORMING PATIENT OF APPT DATE & TIME .
--- NOTE | 2022-03-01 15:01 | MHC.HEMONCSW ---
TRANSFERRED CARE TO [facility] FOR BOTH CANCER AND CARDIAC CARE.
== END | disposition home or self-care (01) ==
LOC: HO.ONC 01-25 12:25
PROVIDERS: PCP Internal Medicine; Visit Provider Internal Medicine
DX: C85.19 Unspecified B-cell lymphoma, extranodal and solid organ sites (principal); D64.9 Anemia, unspecified; D69.6 Thrombocytopenia, unspecified; Z85.3 Personal history of malignant neoplasm of breast; Z86.73 Personal history of transient ischemic attack (TIA), and cerebral infarction without residual deficits; Z92.3 Personal history of irradiation
CPT/HCPCS: 99204